=== PATIENT | female | born 1965 | race Caucasian/White ===

== ENCOUNTER 2025-02-21 07:41 | Outpatient (CLI) | payer OTHER, SELFPAY ==
--- NOTE | ~2025-02-21 | MMUS_ITS ---
EXAMINATION: MM diagnostic marianela BI w tiffanie, US breast RT limited HISTORY: Unspecified breast lump TECHNIQUE: 3-D tomosynthesis images of the breasts were performed and synthetic 2-D images were generated. CAD analysis was submitted and interpreted. High resolution limited right breast ultrasound was performed. COMPARISON: None BREAST PARENCHYMAL COMPOSITION: The breasts are heterogeneously dense, which may obscure small masses. FINDINGS: MAMMOGRAPHIC FINDINGS: There is an area of asymmetric density and architectural distortion at the upper, outer right breast, measuring approximately 3 cm in diameter. There are associated numerous pleomorphic microcalcifications in the area of asymmetric density/distortion. No parenchymal abnormality of the left breast seen. No suspicious left breast calcifications. ULTRASOUND: At the upper, outer right breast, there is a 3.7 x 2.3 x 2.5 cm irregular hypoechoic mass with extensive internal vascularity on color flow. This correlates with the mammographic finding. At the 10:00 position right breast, 9 cm from the nipple, there is an additional 1.8 x 1.5 x 1.5 cm hypoechoic irre gular mass with internal vascular flow. There is an additional adjacent 1.5 x 1.5 x 1.9 cm lymph node with fatty hilum but possible thickened cortex. There is an additional 2.4 x 0.7 x 1.2 cm right axillary lymph node with probable thickening of the cortex. IMPRESSION: 3.7 x 2.3 x 2.5 cm irregular hypoechoic mass at the upper, outer right breast which corresponds with a suspicious mammographic abnormality with architectural distortion and pleomorphic microcalcifications. This is highly suspicious for breast carcinoma. Ultrasound-guided tissue sampling recommended to establish histologic diagnosis. At least 3 suspicious, abnormal appearing lymph nodes at the right axillary region, suspicious for bushra metastatic disease. Again, tissue sampling is recommended. BI-RADS category 5, highly suggestive of malignancy. Reviewed, dictated and finalized at location M. IMPRESSION: 3.7 x 2.3 x 2.5 cm irregular hypoechoic mass at the upper, outer right breast which corresponds with a suspicious mammographic abnormality with architectural distortion and pleomorphic microcalcifications. This is highly suspicious for breast carcinoma. Ultrasound-guided tissue sampling recommended to establish hi stologic diagnosis. At least 3 suspicious, abnormal appearing lymph nodes at the right axillary reg ion, suspicious for bushra metastatic disease. Again, tissue sampling is recomme nded. BI-RADS category 5, highly suggestive of malignancy.
--- OUTSIDE RECORDS SUMMARY | 2025-02-21 07:46 | XMS_ITS | Clinical Summary ---
Author Organization [facility] Address [address] [place] [address] Care Team Providers Care Conveyor Belt Installer Name Role Phone Mallory Moon DO Primary Care Provider Allergies Active Allergy Reactions Criticality Noted Date Comments Cefprozil Hives High 11/15/2022 Clarithromycin Hives High 11/15/2022 Influenza Virus Vaccine Tv S plit 2012- (18 Yr+) Hives High 12/29/2022 Metronidazole Abdominal Pain Low 11/15/2022 Shellfish Containing Products Hives High 2022 Sulfa (Sulfonamide Antibiotics) Hives High 10/31 Medications cetirizine (ZyrTEC) 5 mg tablet 5 mg. 03/22/20 21 Active tiZANidine (ZANAFLEX) 2 mg Tablet 1-2 tabs as needed Orally once a day at bedtime for 30 06/22/20 22 Active fluticasone propionate 50 mcg/actuation nasal spray,suspensi on 1 spray(s), Nasal, daily, [place], 0 03/22/20 21 Active cannabidiol, CBD, (CANNABIDIOL ORAL) mg, 0, CBD/THC edible gummy 03/22/20 21 Active famotidine (PEPCID) 20 mg tablet Take 20 mg by mouth 2 times daily. Active sodium sulfate-potass ium chloride-magne sium sulfate (Sutab) 1.479-0.188- 0.225 gram Tablet Take 12 Tablets by mouth one time for 1 dose. Follow prescribing physician's instructions ONLY. These were sent by mail or email. 24 Tablet 01/09/20 24 Active atorvastatin (LIPITOR) 10 mg tablet Take 1 Tablet by mouth daily. 12/19/19 25 Active ondansetron (ZOFRAN ODT) 4 mg Tablet, Rapid Dissolve Take 1 Tablet (4 mg) by mouth every 6 hours as needed for Nausea/Emesis. Dissolve tablet on top of tongue, then swallow with saliva. 6 Tablet 02/12/20 25 Active colestipoL (COLESTID) 1 gram tablet Take 1 Tablet (1,000 mg) by mouth daily. 90 Tablet 3 02/12/20 25 Active ondansetron (Zofran) 4 mg Tablet Take 1 Tablet (4 mg) by mouth every 8 hours as needed for Nausea/Emesis. 30 Tablet 08/08/19 24 025 Discontinued colestipoL (COLESTID) 1 gram tablet TAKE 1 TABLET BY MOUTH DAILY 30 Tablet 01/21/20 25 025 Discontinued Active Problems Problem Noted Date Diagnosed Date History of colon polyps 08/08/2023 Gastroesophageal reflux dise ase with esophagitis without hemorrhage 05/30/2023 Irritable bowel syndrome with diarrhea 3 Resolved Problems Problem Noted Date Diagnosed Date Resolved Date Chronic diarrhea 11/15/2022 05/30/2023 RUQ abdominal pain 11/15/2022 3 Encounters Date Type Department Care Team Description 02/11/2025 9:00 AM CDT Office Visit [facility] [place] [address] [facility] [address] [place] [address] Amy York MD Irritable bowel syndrome with diarrhea (Primary Dx); Gastroesophageal reflux disease with esophagitis without hemorrhage; History of colon polyps 02/04/2025 External Device Data STL ABSTRACTION Provider, Abstract 01/19/2025 Refill [facility] [place] [address] [facility] [place] [address] [place] [address] Amy York MD 12/24/2024 External Device Data STL ABSTRACTION Provider, Abstract 11/26/2024 External Device Data STL ABSTRACTION Provider, Abstract from Last 3 Months Family History Medical History Relation Name Comments Prostate Cancer Maternal Grandfather Hypertension Mother Colon Cancer Neg Hx Relation Name Status Comments Maternal Grandfather Mother Social History Tobacco Use Types Packs/Day Years Used Date Smoking Tobacco: Some Days Cigarettes Last attempted to quit: 12/27/2022 Tobacco Cessation:Ready to Q uit: Not Asked; Counseling Given: Not Answered Alcohol Use Standard Drinks/Week Comments Yes 0 (1 standard drink = 0.6 oz pur e alcohol) occ Feeling Safe Answer Date Recorded Are you in a relationship wi th someone who hurts you emotionally and/or physically? No 02/01/2024 Comments No Sex and Gender Information Value Date Recorded Sex Assigned at Not on file Legal Sex Female 6:03 AM RN BARIATRIC Gender Identity Not on file Sexual Orientation Not on file Last Filed Vital Signs Vital Sign Reading Time Taken Comments Blood Pressure 120/80 02/11/2025 8:45 AM CDT Pulse 80 02/11/2025 8:45 AM CDT Temperature 36.1 C (97 F) 02/01/2024 10:24 AM CDT Respiratory Rate 18 02/01/2024 10:44 AM CDT Oxygen Saturation 100% 02/01/2024 10:44 AM CDT Inhaled Oxygen Concentration - - Weight 65.8 kg (145 lb) 02/11/2025 8:45 AM CDT Height 162.6 cm (5' 4) 02/11/2025 8:45 AM CDT Body Mass Index 24.89 02/11/2025 8:45 AM CDT Plan of Treatment Upcoming Encounters Date Type Department Care Team (Late st Contact Info) Description 06/24/2025 11:20 AM RN BARIATRIC Office Visit [facility]3] Internal Medicine - [address] [address] Leoncio Cherry MD [address] [place] [address] 02/17/2026 8:20 AM CDT Office Visit [facility] Gastroenterology [facility] [address] [address] Amy York MD [address] [address] Health Maintenance Due Date Last Done Comments DTAP/TDAP/TD VACCINES (1 - Tdap) 01/27/1984 HPV/Cotest (21-29) 1986 CERVICAL CANCER SCREENING 1995 HPV/Cotest (30-65) 1995 PAP SMEAR 1995 FIT-DNA Q 3 years 2010 FIT/FOBT Q 1 year 2010 Flex Sig/CT Colonography Q 5 years 2010 ZOSTER VACCINE (1 of 2) 2015 BREAST CANCER SCREENING 03/02/2016 03/02/2015, 02/09 COVID-19 Vaccine ( season) 2024 01/28/2022, 04/29/2021, 10/26/2020 RSV VACCINE (60+ or ) (1 - Risk 60-74 years 1-dose series) 2025 INFLUENZA VACCINE (#1) 2025 COLORECTAL SCREENING 01/31/2027 02/01/2024, 02/01/2024, 01/19/2023, Additional history exists Colorectal Cancer Screening 01/31/2027 HEPATITIS B VACCINES Aged Out No long er eligible based on patient's age to complete this topic Procedures Procedure Name Priority Date/Time Associated Diagnosis Comments COLONOSCOPY REPORT 02/01/2024 10 :27 AM CDT from Last 3 Months or Most Recently Relevant to Health Maintenance Results * COLONOSCOPY REPORT (02/01/2024 10:27 AM CDT) Narrative Procedure Note Amy York MD - 02/01/2024 10:27 AM CDT [facility] Endoscopy Patient Name: Patsy Rush Procedure Date: 02/01/2024 Date of : 1965 Attending MD: Amy York MD, Procedure: Colonoscopy Indications: Surveillance: History of numerous (> 10) adenomas on last colonoscopy (< 3 yrs), Surveillance: Personal history of piecemeal removal of large sessile adenoma on last colonoscopy (less than 1 year ago) Providers: Amy York MD Referring MD: Mallory Moon DO Medicines: Monitored Anesthesia Care Complications: No immediate complications. Procedure: Informed consent was obtained for the procedure, including moderate sedation after risks were discussed. Based on the pre-procedure assessment, including review of the patient's medical history, medications, allergies, and review of systems, the patient was deemed to be an appropriate candidate for sedation. A timeout was performed. Continuous ECG monitoring, pulse oximetry, blood pressure monitoring, and direct observation were performed. The Colonoscope was introduced through the anus and advanced to the cecum, identified by appendiceal orifice and ileocecal valve. The colonoscopy was performed without difficulty. The patient tolerated the procedure well. The quality of the bowel preparation was good. The quality of the bowel preparation was evaluated using the BBPS ([place] Bowel Preparation Scale) with scores of: Right Colon = 2, Transverse Colon = 3 and Left Colon = 3. The total BBPS score equals 8. The ileocecal valve, appendiceal orifice, and rectum were photographed. Estimated Blood Loss: Estimated blood loss: none. Findings: The perianal and digital rectal examinations were normal. Four sessile polyps were found in the ascending colon. The polyps were 3 to 5 mm in size. These polyps were removed with a cold snare. Resection and retrieval were complete. A small post polypectomy scar was found in the ascending colon. The scar tissue was healthy in appearance. A 4 mm polyp was found in the descending colon. The polyp was sessile. The polyp was removed with a cold snare. Resection and retrieval were complete. Two sessile polyps were found in the rectum. The polyps were 1 to 2 mm in size. These polyps were removed with a cold biopsy forceps. Resection and retrieval were complete. Multiple small-mouthed diverticula were found in the sigmoid colon and descending colon. External hemorrhoids were found during retroflexion. The hemorrhoids were small. Impression: - Four 3 to 5 mm polyps in the ascending colon, removed with a cold snare. Resected and retrieved. - Post-polypectomy scar in the ascending colon. - One 4 mm polyp in the descending colon, removed with a cold snare. Resected and retrieved. - Two 1 to 2 mm polyps in the rectum, removed with a cold biopsy forceps. Resected and retrieved. - Diverticulosis in the sigmoid colon and in the descending colon. - External hemorrhoids. Recommendation: - Await pathology results. - Repeat colonoscopy in 2-3 years for surveillance based on pathology results. - Sutab and zofran ok Amy York MD 02/01/2024 10:27:04 AM This report has been signed electronically. Number of Addenda: [address]; [place] [address] Amy York MD GI PROCEDURE ORDERABLES Final Re sult from Last 3 Months or Most Recently Relevant to Health Maintenance Insurance [place] [address] [employer] CHOICE POS II Advance Directives For more information, please contact: [phone] * Full Code (Latest Code Status on File) Date Activated Date Inactivated Comments 02/01/2024 9:07 AM 02/01/2024 1:04 PM * Full Code Date Activated Date Inactivated Comments 01/19/2023 10:54 AM 01/19/2023 3:33 PM Care Teams Conveyor Belt Installer Relationship Specialty [place] [address] [place] [address] PCP - General Family Practice 11/15/22
--- OUTSIDE RECORDS SUMMARY | 2025-02-21 07:46 | XMS_ITS | Patient Health Record ---
Author Organization [facility] Address [address] [place] [address] Care Team Providers Care Fine Arts Model Name Role Phone Ysabel Jeffrey Primary Care Provider Allergies Allergen (clinical drug ingredient) Drug/Non Drug Allergy documented on EMR Reaction Allergy Type Onset Date Status biaxin (uncoded) Unknown Allergy Act sergio cefzil (uncoded) Unknown Allergy Act sergio Vaccine product containing Influenza virus antigen (medicinal product) flu shot (uncoded) hives Allergy Ac tive gabapentin gabapentin (uncoded) facial flusing Allergy Active Substance with sulfonamide structure and antibacterial mechanism of action (substance) sulfa (uncoded) Unknown Allergy Active Reason For Referral No Information Medications Medication SIG (Take, Route, Frequency, Duration) Notes Start Date End Date Status predniSONE 20 MG 2 tablet for 4 days, 1 tab for 4 days, 1/2 tab for 4 days, then stop Orally Once a day; Duration: 12 days 08/20/2020 Active Albuterol Sulfate HFA 108 (90 Base) mcg/act 2 puffs as needed Inhalation every 4 hrs; Duration: 30 days 07/28/2020 Active Xyzal 5 MG 1 tablet in the evening Orally Once a day Unknown Singulair 10 MG 1 tablet in the evening Orally Once a day Unknown DULoxetine HCl 20 MG 1 capsule Orally Once a day; Duration: 30 day(s) 04/11/2019 Unknown Cholestyramine 4 GM 1 packet mixed with water or non-carbonated drink Orally Twice a day; Duration: 30 day(s) 08/13/2019 Unknown Propranolol HCl 20 MG 1 tablet as needed Orally Twice a day; Duration: 30 day(s) 08/14/2019 Unknown predniSONE 20 MG 2 tablet for 4 days, 1 tab for 4 days, 1/2 tab for 4 days, then stop Orally Once a day; Duration: 12 days 05/21/2020 Unknown tiZANidine HCl 2 MG 1-2 tabs as needed Orally once a day at bedtime; Duration: 30 Active Amoxicillin 500 MG 1 capsule Orally every 12 hrs; Duration: 10 day(s) 08/20/2020 Active EpiPen 2-Christopher 0.3 MG/0.3ML as directed Injection once; Duration: 90 days for anaphylaxis 07/28/2020 Active Immunizations Vaccine Route Administration Date Status Comme nts Flulaval Unknown 03/11/2019 Refused Social History Tobacco Use: Social History Observation Description Date Details (start date - stop date) Former Smoker NA - NA Sex Assigned At : Social History Observation Description Sex Assigned At Female Tobacco Use/Smoking Question Answer Notes Smoking Status: former smoker Problems Problem Type SNOMED Code ICD Code Onset Dates Problem Status W/U Status Risk Notes Problem Chronic tonsillitis (70434337) Chronic tonsillitis (J35.01) Active confirmed Problem Benign essential hypertension (5257976) Benign essential hypertension (I10) Active confirmed Problem Skin sensation disturbance (17443519) Numbness and tingling of right leg (R20.2) Active confirmed Problem Vitamin D deficiency (44029103) Vitamin D deficiency (E55.9) Active confirmed Problem Sciatica (65049606) Back pain of lumbar region with sciatica (M54.40) Active confirmed Problem Drug allergy (113546746) Drug allergy (Z88.9) Active confirmed Problem Flatulence (464210796) Flatulence (R14.3) 0 confirmed [place] Problem Malaise (887200202) Other malaise (R53.81) 0 confirmed [place] Problem General examination of patient (358103644) Routine medical exam (Z00.00) 0 confirmed [place] Problem Allergic rhinitis (01579955) Allergic rhinitis (J30.9) 0 confirmed [place] Problem Migraine (25778089) Migraine (G43.909) 0 confirmed [place] Problem Hearing loss (16892217) Hearing loss (H91.90) 0 confirmed [place] Problem Gynecological examination normal (120472353772158) Routine gynecological examination (Z01.419) 0 confirmed [place] Problem Urinary frequency (297816751) Urinary frequency (R35.0) 0 confirmed [place] Problem Other specified disorder of intestines (K63.89) 0 confirmed [place] Problem Female genital organ symptoms (872592603) Other specified symptom associated with female genital organs (N94.89) 0 confirmed Ochoa Plan Of Treatment No Information Insurance Providers Payer Name Payer Address Payer Phone Subscriber Number Group Number Insured Name Patient Relationship to Insured Coverage Start Date Coverage End Date [employer] [address] [place] [address] [id number] Patsy Rush Self - patient is the insured Medical (General) History Medical History History ICD Code Chronic diarrhea SIBO Benign lump right breast Arthroscopic surgery left knee
== END 2025-02-21 07:42 | disposition home or self-care (01) ==
LOC: ANHFOHIMG 07:44
DX: N63.0 Unspecified lump in unspecified breast (principal); R92.8 Other abnormal and inconclusive findings on diagnostic imaging of breast
CPT/HCPCS: 76642; 77062; 77066; G0279

== ENCOUNTER 2025-02-22 10:14 | Emergency (ER) | payer OTHER, SELFPAY ==
--- NOTE | ~2025-02-22 | XR_ITS ---
XR shoulder LT min 2V 02/22/2025 10:43 Indication: Left shoulder pain Procedure: 4 views left shoulder Comparison: No prior studies for comparison. Findings: No fracture, subluxation or dislocation. No soft tissue abnormality. No foreign bodies. Impression: 1: No acute bone or joint abnormality. Reviewed, dictated and finalized at location O. Impression: 1: No acute bone or joint abnormality.
[2025-02-22 10:29] VITALS: BP 154/70; PULSE 81; RESP 16; TEMP 36.5; O2SAT 100
--- NOTE | 2025-02-22 12:12 | ED.GENADULT ---
HPI - General Adult General Chief complaint: Extremity Injury, Upper Stated complaint: L SHOULDER PAIN Source: patient Mode of arrival: ambulatory Limitations: no limitations History of Present Illness HPI narrative: Patient presents for evaluation of left shoulder pain. Symptom onset in the last week. 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 She felt a pop in the affected area. Yesterday she was reaching out in front of her and heard another pop in the left shoulder. She has a history of bone spurs and bursitis in the left shoulder. 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 She reports decreased range of motion in the affected joint. Pain is 9/10 in severity. She took tizanidine for symptoms. She is right-hand dominant. Related Data Home Medications ?Medication ?Instructions ?Recorded ?Confirmed ?Last Taken ?Type Flonase 02/22/25 Unknown History cetirizine 02/22/25 Unknown History colestipol 1 gram tablet g PO 02/22/25 Unknown History famotidine 20 mg tablet (Acid 20 mg PO BID 02/22/25 02/22/25 Unknown History Controller) simvastatin 10 mg tablet mg 02/22/25 Unknown History tizanidine 2 mg tablet mg 02/22/25 Unknown History Allergies Allergy/AdvReac Type Severity Reaction Status Date / Time shellfish derived Allergy Severe Unknown Verified 02/22/25 10:43 clarithromycin (From Biaxin) Allergy Unknown Unknown Verified 02/22/25 10:43 metronidazole Allergy Unknown Unknown Verified 02/22/25 10:43 Sulfa (Sulfonamide Allergy Unknown Unknown Verified 02/22/25 10:43 Antibiotics) cefazolin AdvReac Unknown Unknown Verified 02/22/25 10:43 Review of Systems Review of Systems: CONSTITUTIONAL: Denies fever, chills, or sweats. EYES: Denies visual changes, redness, or discharge. ENT: Denies rhinorrhea, congestion, sore throat, or otalgia. CARDIOVASCULAR: Denies chest pain, palpitations, or edema. RESPIRATORY: Denies cough or dyspnea. GASTROINTESTINAL: Denies abdominal pain, nausea, vomiting, or diarrhea. GENITOURINARY: Denies dysuria or hematuria. SKIN: Denies rash or itching. MUSCULOSKELETAL: Reports left shoulder pain. NEUROLOGIC: Denies headache, numbness, dizziness, or weakness. PSYCHIATRIC: Denies anxiety or depression. 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 HEAD: Normocephalic, atraumatic. EYES: PERRLA and EOMI. ENT: Nares clear, no rhinorrhea or epistaxis. Mucous membranes moist. Oropharynx without tonsillar hypertrophy exudate or other lesions. Bilateral TMs pearly kimbrough nonbulging NECK: Supple. No adenopathy or masses. No carotid bruits or JVD CHEST: Clear to auscultation. No respiratory distress. No wheezes rales or rhonchi HEART: Regular rate and rhythm. No murmur heard. Normal peripheral pulses. ABDOMEN: Soft, nontender, nondistended, normal active bowel sounds. EXTREMITIES: decreased active range of motion of the left shoulder but full passive range of motion of the left shoulder. There is tenderness in left shoulder without crepitus or deformity. SKIN: Warm, dry, no rash. NEURO: No focal deficits. Alert and oriented x3. PSYCH: Normal mood and affect. Course Course Emergency Course: This is a 60-year-old female who presented for evaluation of left shoulder pain. X-ray negative for fracture. Exam consistent with strain. Will discharge with Medrol Dosepak as she cannot take NSAIDs. Provided with sling. Advise she follow up with Orthopedics. Advised on RICE therapy. Go to the ER for worsening symptoms. Pt in agreement with plan of care. Level of Care: Express Care Visit Vital Signs Vital signs: Vital Signs Temperature 36.5 C 02/22/25 10:29 Pulse Rate 81 02/22/25 10:29 Respiratory Rate 16 02/22/25 10:29 Blood Pressure 154/70 H 02/22/25 10:29 Pulse Oximetry 100 02/22/25 10:29 Temperature 36.5 C 02/22/25 10:29 Pulse Rate 81 02/22/25 10:29 Respiratory Rate 16 02/22/25 10:29 Blood Pressure 154/70 H 02/22/25 10:29 Pulse Oximetry 100 02/22/25 10:29 Medical Decision Making Vital Signs Vital Signs: Vital Signs Temperature 36.5 C 02/22/25 10:29 Pulse Rate 81 02/22/25 10:29 Respiratory Rate 16 02/22/25 10:29 Blood Pressure 154/70 H 02/22/25 10:29 Pulse Oximetry 100 02/22/25 10:29 Temperature 36.5 C 02/22/25 10:29 Pulse Rate 81 02/22/25 10:29 Respiratory Rate 16 02/22/25 10:29 Blood Pressure 154/70 H 02/22/25 10:29 Pulse Oximetry 100 02/22/25 10:29 Imaging Data Radiologist's impression: GENERAL: Well-appearing, well-nourished, and in no acute distress. HEAD: Normocephalic, atraumatic. EYES: PERRLA and EOMI. ENT: Nares clear, no rhinorrhea or epistaxis. Mucous membranes moist. Oropharynx without tonsillar hypertrophy exudate or other lesions. Bilateral TMs pearly kimbrough nonbulging NECK: Supple. No adenopathy or masses. No carotid bruits or JVD CHEST: Clear to auscultation. No respiratory distress. No wheezes rales or rhonchi HEART: Regular rate and rhythm. No murmur heard. Normal peripheral pulses. ABDOMEN: Soft, nontender, nondistended, normal active bowel sounds. EXTREMITIES: Normal range of motion. No edema. SKIN: Warm, dry, no rash. NEURO: No focal deficits. Alert and oriented x3. PSYCH: Normal mood and affect. Discharge Plan Discharge Clinical Impression: Left shoulder strain Instructions: Antibiotic Form, Muscle Strain (DC) Patient Language: Turkish Prescriptions: New methylprednisolone [Medrol (Christopher)] 4 mg tablets,dose pack See Rx Instructions .ROUTE .COMPLEX Qty: 21 0RF Rx Instructions: for 6 days No Action tizanidine 2 mg tablet simvastatin 10 mg tablet colestipol 1 gram tablet PO cetirizine Flonase famotidine [Acid Controller] 20 mg tablet 20 mg PO BID Follow-up/Referrals: Sarai,Mallory [Other] Randall Christy MD [Physician, Orthopedics] Stand Alone Forms: Work/School Release IP Time of Disposition: 11:12
== END 2025-02-22 11:20 | disposition home or self-care (01) ==
PROVIDERS: Emergency Provider Nurse Practitioner
DX: S46.912A Strain of unspecified muscle, fascia and tendon at shoulder and upper arm level, left arm, initial encounter (principal); W50.0XXA Accidental hit or strike by another person, initial encounter; Y99.8 Other external cause status
CPT/HCPCS: 73030; 99203; A4565; G0463

== ENCOUNTER 2025-02-27 08:03 | Outpatient (CLI) | payer OTHER, SELFPAY ==
--- NOTE | ~2025-02-27 | MR_ITS ---
EXAMINATION: MR shoulder LT wo con DATE: 02/27/2025 08:57 INDICATION: Left shoulder pain TECHNIQUE: Magnetic resonance imaging (MRI) of the left shoulder was performed without intravenous contrast. Sequences included axial PD-weighted FS FSE, coronal oblique PD-weighted FS FSE, coronal oblique T2-weighted FS FSE, sagittal PD-weighted FS FSE, and sagittal T1-weighted SE. COMPARISON: None. FINDINGS: Coracoacromial arch: The acromion undersurface is flat in morphology (type I). The coracoacromial ligament is normal. Mild acromioclavicular osteoarthritis. Rotator cuff: The supraspinatus, infraspinatus and teres minor tendons are normal. The subscapularis tendon is normal. Normal rotator cuff muscle bulk and signal. Biceps tendon, glenoid labrum and glenohumeral cartilage: Long head of the biceps tendon is normal. Glenoid labrum is normal. Glenohumeral cartilage is normal. Fluid: Physiologic amount of fluid in the glenohumeral joint and biceps tendon sheath. No loose osteochondral bodies. Small amount of fluid in the subacromial/subdeltoid bursa consistent with mild bursitis. Bones: There is a T2 hyperintense, T1 isointense lytic lesion at the junction of the spine of the scapula and 20 the acromion which measures 2.4 x 1.9 x 1.4 cm lesion fills the medullary space with peripheral endosteal scalloping. There is full-thickness erosion through the anterior cortex with portion of the mass extending uptake to 6 mm into the fat anterior to bone. There is a second smaller lesion measuring approximately 8mm in maximal diameter along the proximal left humeral diaphysis associated partial-thickness endosteal scalloping. Normal marrow signal is otherwise normal. IMPRESSION: 1. 2.4 x 1.9 x 1.4 cm expansile lytic lesion in the scapula at the junction of the scapular spine and face of the acromion with full-thickness erosion 3 cortex and extraosseous extension which along with a second smaller lesion along the proximal humeral diaphysis is consistent with metastatic disease. Consider bone scan to further assess extent of disease. Per review of reports from prior right breast imaging on 02/21/2025, there is a lesion highly suspicious for malignancy which may represent the primary malignancy. Consider biopsy of the breast lesion and additional CT of the chest and abdomen to assess for additional metastatic disease. Reviewed, dictated and finalized at location A. IMPRESSION: 1. 2.4 x 1.9 x 1.4 cm expansile lytic lesion in the scapula at the junction of the scapular spine and face of the acromion with full-thickness erosion 3 georgette x and extraosseous extension which along with a second smaller lesion along the proximal humeral diaphysis is consistent with metastatic disease. Consider bon e scan to further assess extent of disease. Per review of reports from prior [facility] breast imaging on 02/21/2025, there is a lesion highly suspicious for malign gemma which may represent the primary malignancy. Consider biopsy of the breast lesion and additional CT of the chest and abdomen to assess for additional meta static disease.
== END 2025-02-27 08:04 | disposition home or self-care (01) ==
DX: M25.612 Stiffness of left shoulder, not elsewhere classified (principal); M25.512 Pain in left shoulder
CPT/HCPCS: 73221

== ENCOUNTER 2025-03-10 08:04 | Outpatient (CLI) | payer OTHER, SELFPAY ==
--- OUTSIDE RECORDS SUMMARY | 2025-03-10 08:25 | XMS_ITS | Clinical Summary ---
Author Organization [facility] Address [address] [place] [address] Care Team Providers Care Screener Perfumer Name Role Phone Mallory Moon DO Primary Care Provider Allergies Active Allergy Reactions Criticality Noted Date Comments Cefazolin Nausea and Vomiting Low 11/26/2021 Reaction was either vomiting or hive Cefprozil Hives High 11/15/2022 Clarithromycin Hives High 11/15/2022 Influenza Virus Vaccine Tv Split 2013-14 (18 Yr+) Hives High 12/29/2022 Metronidazole Abdominal Pain Low 11/15/2022 Shellfish Containing Products Hives High 11/15/2022 Sulfa (Sulfonamide Antibiotics) Hives High 11/15/2022 Medications cetirizine (ZyrTEC) 5 mg tablet 5 mg. 1 Active tiZANidine (ZANAFLEX) 2 mg Tablet 1-2 tabs as needed Orally once a day at bedtime for 30 2 Active cannabidiol, CBD, (CANNABIDIOL ORAL) mg, 0, CBD/THC edible gummy 1 Active colestipoL (COLESTID) 1 gram tablet Take 1 Tablet (1,000 mg) by mouth daily. 90 Tablet 3 5 Active simvastatin (ZOCOR) 10 mg tablet Take 10 mg by mouth daily. 5 Active ondansetron (Zofran) 4 mg Tablet Take 1 Tablet (4 mg) by mouth every 8 hours as needed for Nausea/Emes is. 30 Tablet 4 02/12/20 25 Discontinued colestipoL (COLESTID) 1 gram tablet TAKE 1 TABLET BY MOUTH DAILY 30 Tablet 5 02/12/20 25 Discontinued Active Problems Problem Noted Date Diagnosed Date Carcinoma of right breast metastatic to bone 10/2024 History of colon polyps 08/08/2023 Gastroesophageal reflux dise ase with esophagitis without hemorrhage 05/30/2023 Irritable bowel syndrome with diarrhea 3 Resolved Problems Problem Noted Date Diagnosed Date Resolved Date Chronic diarrhea 11/15/2022 05/30/2023 RUQ abdominal pain 11/15/2022 3 Encounters Date Type Department Care Team Description 03/06/2025 12:30 PM CDT Office Visit [facility] Oncology and Hematology - [address] [facility] [address] [place] [address] Juli Jean MD Carcinoma of right breast metastatic to bone (CMS/HCC) (Primary Dx) 02/11/2025 9:00 AM CDT Office Visit [facility] Gastroenterology [facility] [address] [facility] [address] [place] [address] Amy York MD Irritable bowel syndrome with diarrhea (Primary Dx); Gastroesophageal reflux disease with esophagitis without hemorrhage; History of colon polyps 02/04/2025 External Device Data STL ABSTRACTION Provider, Abstract 01/19/2025 Refill [facility] Gastroenterology [facility] [address] [facility] [address] [place] [address] Amy York MD 12/24/2024 External Device Data STL ABSTRACTION Provider, Abstract from Last 3 Months Family History Medical History Relation Name Comments Diabetes Brother Heart Disease Father Breast Cancer Maternal Aunt bladder cancer Maternal Grandfather Heart Disease Mother Hypertension Mother Relation Name Status Comments Brother Alive Father Alive Maternal Aunt Maternal Grandfather Mother Alive Social History Tobacco Use Types Packs/Day Years Used Date Smoking Tobacco: Former Cigarettes Q uit: 12/27/2022 Smokeless Tobacco: Never Tobacco Cessation:Counseling Given: Not Answered Alcohol Use Standard Drinks/Week Comments Yes 0 (1 standard drink = 0.6 oz pur e alcohol) socially Feeling Safe Answer Date Recorded Are you in a relationship wi th someone who hurts you emotionally and/or physically? 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 Gender Identity Not on file Sexual Orientation Not on file Last Filed Vital Signs Vital Sign Reading Time Taken Comments Blood Pressure 155/77 03/06/2025 12:13 PM CDT Pulse 72 03/06/2025 12:10 PM CDT Temperature 36.6 C (97.9 F) 03/06/2025 12:10 PM CDT Respiratory Rate 15 03/06/2025 12:10 PM CDT Oxygen Saturation 96% 03/06/2025 12:10 PM CDT Inhaled Oxygen Concentration - - Weight 65.5 kg (144 lb 6.4 oz) 03/06/2025 12:10 PM CDT Height 162.6 cm (5' 4) 03/06/2025 12:10 PM CDT Body Mass Index 24.79 03/06/2025 12:10 PM CDT Plan of Treatment Upcoming Encounters Date Type Department Care Team (Late st Contact Info) Description 03/27/2025 1:00 PM CDT Office Visit [facility] Oncology and Hematology [facility] [address] [facility] [address] [place] [address] Jovani Weeks MD [address] [facility] [address] [place] [address] 06/24/2025 11:20 AM PLASTIC FRAME INSERTER Office Visit [facility] Internal Medicine - [facility] [address] [place] [address] Leoncio Cherry MD [address] [place] [address] 02/17/2026 8:20 AM CDT Office Visit [facility] Gastroenterology [facility] [address] [facility] [address] [place] [address] Amy York MD [address] [address] Health Maintenance Due Date Last Done Comments DTAP/TDAP/TD VACCINES (1 - Tdap) 01/27/1984 ZOSTER VACCINE (1 of 2) 01/27/1984 HPV/Cotest (21-29) 1986 CERVICAL CANCER SCREENING 1995 HPV/Cotest (30-65) 1995 PAP SMEAR 1995 FIT-DNA Q 3 years 2010 FIT/FOBT Q 1 year 2010 Flex Sig/CT Colonography Q 5 years 2010 BREAST CANCER SCREENING 03/02/2016 03/02/2015, 02/09 RSV VACCINE (60+ or ) (1 - Risk 60-74 years 1-dose series) 2025 INFLUENZA VACCINE (#1) 2025 COVID-19 Vaccine ( - season) 2025 01/28/2022, 04/29/2021, 10/26/2020 COLORECTAL SCREENING 01/31/2027 02/01/2024, 02/01/2024, 01/19/2023, Additional [...] York MD - 02/01/2024 10:27 AM CDT [facility] Patient Name: Patsy Rush Procedure Date: [...] bowel preparation was evaluated using the BBPS ([place] Bowel Preparation Scale) with scores of: Right [...] of Addenda: [address]; [place] [address] Amy York MD GI PROCEDURE ORDERABLES Final Re sult from Last 3 Months or Most Recently Relevant to Health [place] [address] [place] [address] A[employer] CHOICE POS II Advance Directives For more information, please contact: [phone] * Full Code (Latest Code Status on File) Date Activated Date Inactivated Comments 02/01/2024 9:07 AM 02/01/2024 1:04 PM * Full Code Date Activated Date Inactivated Comments 01/19/2023 10:54 AM 01/19/2023 3:33 PM Care Teams Screener Perfumer Relationship Specialty [place] [address] [place] [address] PCP - General Family Practice 11/15/22
--- OUTSIDE RECORDS SUMMARY | 2025-03-10 08:25 | XMS_ITS | Patient Health Record ---
Author Organization [facility] Address [address] [place] [address] Care Team Providers Care Garnett Mechanic Name Role Phone Ysabel Jeffrey Primary Care Provider [phone] Allergies Allergen (clinical drug ingredient) Drug/Non Drug [...] W/U Status Risk Notes Problem Chronic tonsillitis (28125753) Chronic tonsillitis (J35.01) Active confirmed Problem Benign essential hypertension (8005596) Benign essential hypertension (I10) Active confirmed Problem Skin sensation disturbance (02338734) Numbness and tingling of right leg (R20.2) Active confirmed Problem Vitamin D deficiency (09783309) Vitamin D deficiency (E55.9) Active confirmed Problem Sciatica (16452649) Back pain of lumbar region with sciatica (M54.40) Active confirmed Problem Drug allergy (732208281) Drug allergy (Z88.9) Active confirmed Problem Flatulence (477000628) Flatulence (R14.3) 0 confirmed [place] Problem Malaise (651953000) Other malaise (R53.81) 0 confirmed [place] Problem General examination of patient (203677344) Routine medical exam (Z00.00) 0 confirmed [place] Problem Allergic rhinitis (64516802) Allergic rhinitis (J30.9) 0 confirmed [place] Problem Migraine (95898552) Migraine (G43.909) 0 confirmed [place] Problem Hearing loss (34495848) Hearing loss (H91.90) 0 confirmed [place] Problem Gynecological examination normal (352108899558554) Routine gynecological examination (Z01.419) 0 confirmed [place] Problem Urinary frequency (878598967) Urinary frequency (R35.0) 0 confirmed [place] Problem Other specified disorder of intestines (K63.89) 0 confirmed [place] Problem Female genital organ symptoms (647807516) Other specified symptom associated with female genital organs (N94.89) 0 confirmed [place]choa Plan Of Treatment No Information Insurance Providers Payer Name Payer Address Payer Phone Subscriber Number Group Number Insured Name Patient Relationship to Insured Coverage Start Date Coverage End Date A[employer] [address] [place] [address] [id number] Patsy Rush Self - patient is the insured Medical (General) History Medical History History ICD Code Chronic diarrhea SIBO Benign lump right breast Arthroscopic surgery left knee
[2025-03-10 08:54] LABS: Hematocrit 36.3 % (37.0-47.0); Hemoglobin 12.1 g/dL (12.0-15.0); Immature Granulocyte Percent A 0.6 % (0-0.5); Lymphocytes Absolute Auto 0.96 K/mm3 (0.9-3.2); Mean Corpuscular HGB Conc 33.3 g/dl (32-36); Mean Corpuscular Hemoglobin 32.6 pg (26-34); Mean Corpuscular Volume 97.8 fl (80-100); Nucleated Red Blood Cells Absolute Auto 0.000 K/mm3 (0.0-0.012); Nucleated Red Blood Cells Perc 0.0 % (0.0-0.2); Platelet Count Result 259 k/mm3 (150-375); Red Blood Count 3.71 M/mm3 (4.2-5.4); White Blood Count 5.1 K/mm3 (4.5-10.0)
[2025-03-10 09:45] LABS: Alanine Aminotransferase 22 U/L (6-35); Albumin Level 4.1 g/dL (3.5-5.1); Alkaline Phosphatase 95 U/L (38-126); Anion Gap 9 mmol/L (4-12); Aspartate Amino Transferase 36 U/L (14-36); Bilirubin,Total 1.2 mg/dL (0.2-1.3); Blood Urea Nitrogen 15 mg/dL (7-17); Calcium 9.7 mg/dL (8.4-10.2); Carbon Dioxide 24 mmol/L (22-30); Chloride 105 mmol/L (98-107); Estimated Glomerular Filt Rate > 60; Glucose 106 mg/dL (65-110); Potassium 3.6 mmol/L (3.4-5.0); Sodium 138 mmol/L (137-145); Total Protein 7.0 g/dL (6.3-8.2)
== END 2025-03-10 08:05 | disposition home or self-care (01) ==
PROVIDERS: Visit Provider Internal Medicine
DX: C50.911 Malignant neoplasm of unspecified site of right female breast (principal); C79.51 Secondary malignant neoplasm of bone
CPT/HCPCS: 36415; 80053; 85025; 86300

== ENCOUNTER 2025-03-14 07:05 | Outpatient (CLI) | payer OTHER, SELFPAY ==
--- NOTE | ~2025-03-14 | MMUS_ITS ---
PROCEDURE: US breast biopsy RT w image, MM post biopsy diagnostic RT, US breast bx add lesion RT CLINICAL HISTORY: 60-year-old female with suspicious right breast mass in the upper outer quadrant and abnormal right axillary lymph node who presents for ultrasound-guided core needle biopsy procedure. COMPARISON: 02/21/2025 Following informed consent including risks, benefits, and possible complications, the patient was brought to the ultrasound suite. A time-out procedure was performed. A preliminary ultrasound of the right breast and right axilla was performed, redemonstrating a dominant irregular shaped calcified hypo echoic mass at that spans 9:00 to 12:00, 3 cm from the nipple and multiple enlarged lymph nodes with thickened cortex in the right axilla. The patient was prepped and draped in the usual sterile fashion. 1% lidocaine was instilled into the subcutaneous tissues. 1% lidocaine without epinephrine was injected into the deep tissues around the lesion. Approximately 10cc lidocaine was administered. A small skin jacky was made. 4 core samples were obtained from the palpable lesion at 12:00 through a Lateral approach with a 13- gauge Vacuum-assisted biopsy needle. A post biopsy butterfly HydroMark marker was placed at the biopsy site. The patient was prepped and draped in the usual sterile fashion. 1% lidocaine was instilled into the subcutaneous tissues. 1% lidocaine without epinephrine was injected into the deep tissues around the lesion. Approximately 10cc lidocaine was administered. A small skin jacky was made. 3 core samples were obtained from an abnormally enlarged lymph node with thickened cortex in the right axilla through a Lateral approach with a 14-gauge biopsy needle. A post biopsy coil HydroMark marker was placed at the biopsy site. Postprocedural mammogram of the right breast in craniocaudal and mediolateral and MLO projections reveal 2 post biopsy metal markers in the right breast and right axilla. The patient tolerated the procedure well and was without immediate postprocedural complications. IMPRESSION: Successful ultrasound guided biopsy of right breast mass and right axillary adenopathy. 2 post biopsy HydroMark markers placed at the biopsy sites are in good position, which is seen on postprocedural mammogram. The patient tolerated the procedure well without immediate postprocedure complications. The patient was given postprocedural instructions and sent home in stable condition. Reviewed, dictated and finalized at location B. IMPRESSION: Successful ultrasound guided biopsy of right breast mass and right axillary adenopathy. 2 post biopsy HydroMark markers placed at the biopsy sites are in good position, which is seen on postprocedural mammogram. The patient tolerated the procedure well without immediate postprocedure compli cations. The patient was given postprocedural instructions and sent home in sta ble condition. IMPRESSION: Successful ultrasound guided biopsy of right breast mass and right axillary adenopathy. 2 post biopsy HydroMark markers placed at the biopsy sites are in good position, which is seen on postprocedural mammogram. The patient tolerated the procedure well without immediate postprocedure compli cations. The patient was given postprocedural instructions and sent home in sta ble condition.
--- OUTSIDE RECORDS SUMMARY | 2025-03-14 07:11 | XMS_ITS | Patient Health Record ---
Author Organization [facility] Address [address] [place] [address] Care Team Providers Care Road Grader Name Role Phone Ysabel Jeffrey Primary Care [...] W/U Status Risk Notes Problem Chronic tonsillitis (32037213) Chronic tonsillitis (J35.01) Active confirmed Problem Benign essential hypertension (8055234) Benign essential hypertension (I10) Active confirmed Problem Skin sensation disturbance (95264175) Numbness and tingling of right leg (R20.2) Active confirmed Problem Vitamin D deficiency (50486529) Vitamin D deficiency (E55.9) Active confirmed Problem Sciatica (70969622) Back pain of lumbar region with sciatica (M54.40) Active confirmed Problem Drug allergy (025448976) Drug allergy (Z88.9) Active confirmed Problem Flatulence (765029000) Flatulence (R14.3) 0 confirmed [place] Problem Malaise (776978292) Other malaise (R53.81) 0 confirmed [place] Problem General examination of patient (398864044) Routine medical exam (Z00.00) 0 confirmed [place] Problem Allergic rhinitis (76421149) Allergic rhinitis (J30.9) 0 confirmed [place] Problem Migraine (15330583) Migraine (G43.909) 0 confirmed [place] Problem Hearing loss (45546887) Hearing loss (H91.90) 0 confirmed [place] Problem Gynecological examination normal (881051721965226) Routine gynecological examination (Z01.419) 0 confirmed [place] Problem Urinary frequency (005744689) Urinary frequency (R35.0) 0 confirmed [place] Problem Other specified disorder of intestines (K63.89) 0 confirmed [place] Problem Female genital organ symptoms (473907818) Other specified symptom associated with female genital organs (N94.89) 0 confirmed [place]choa Plan Of Treatment No Information Insurance Providers Payer Name Payer Address Payer Phone Subscriber Number Group Number Insured Name Patient Relationship to Insured Coverage Start Date Coverage End Date Aetna [address] [place] [address] [id number] Patsy Rush Self - patient is the insured Medical (General) History Medical History History ICD Code Chronic diarrhea SIBO Benign lump right breast Arthroscopic surgery left knee
--- OUTSIDE RECORDS SUMMARY | 2025-03-14 07:11 | XMS_ITS | Clinical Summary ---
Author Organization [facility] Address [address] [place] [address] Care Team Providers Care Centrifugal Wax Molder Name Role Phone Mallory Moon DO Primary Care Provider Allergies Active Allergy Reactions Criticality Noted Date Comments Cefazolin Nausea and Vomiting Low 11/26/2021 Reaction was either vomiting or hive Cefprozil Hives High 11/15/2022 Clarithromycin Hives High 11/15/2022 Influenza Virus Vaccine Tv Split 2013- (18 Yr+) Hives High 12/29/2022 Metronidazole Abdominal Pain Low 11/15/2022 Shellfish Containing Products Hives High 11/15/2022 Sulfa (Sulfonamide Antibiotics) Hives High 11/15/2022 Medications cetirizine (ZyrTEC) 5 mg tablet 5 mg. 03/22/2021 Active tiZANidine (ZANAFLEX) 2 mg Tablet 1-2 tabs as needed Orally once a day at bedtime for 30 06/22/2022 Active cannabidiol, CBD, (CANNABIDIOL ORAL) mg, 0, CBD/THC edible gummy 03/22/2021 Active colestipoL (COLESTID) 1 gram tablet Take 1 Tablet (1,000 mg) by mouth daily. 90 Tablet 3 02/11/2025 Active simvastatin (ZOCOR) 10 mg tablet Take 10 mg by mouth daily. 02/22/2025 Active Active Problems Problem Noted Date Diagnosed Date Carcinoma of right breast metastatic to bone 10/2024 History of colon polyps 08/08/2023 Gastroesophageal reflux dise ase with esophagitis without hemorrhage 05/30/2023 Irritable bowel syndrome with diarrhea 3 Resolved Problems Problem Noted Date Diagnosed Date Resolved Date Chronic diarrhea 11/15/2022 05/30/2023 RUQ abdominal pain 11/15/2022 3 Encounters Date Type Department Care Team Description 03/12/2025 Abstract [facility] Oncology and Hematology [facility] [address] [place] [address] Jovani Weeks MD 03/12/2025 Orders Only [facility] Oncology and [facility] [address] [place] [address] Juli Jean MD Carcinoma of right breast metastatic to bone (CMS/HCC) (Primary Dx) 03/11/2025 External Device Data STL ABSTRACTION Provider, Abstract 03/11/2025 External Device Data STL ABSTRACTION Provider, Abstract 03/11/2025 External Device Data STL ABSTRACTION Provider, Abstract 03/06/2025 12:30 PM CDT Office Visit [facility] Oncology [facility] [address] [place] [address] Juli Jean MD Carcinoma of right breast metastatic to bone (CMS/HCC) (Primary Dx) 02/11/2025 9:00 AM CDT Office Visit [facility] [address] [facility] [address] [place] [address] Amy York MD Irritable bowel syndrome with diarrhea (Primary Dx); Gastroesophageal reflux disease with esophagitis without hemorrhage; History of colon polyps 02/04/2025 External Device Data STL ABSTRACTION Provider, Abstract 01/19/2025 Refill [facility] [address] [place] [address] Amy York MD 12/24/2024 External Device Data [...] on file 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 Gender Identity Not on file Sexual Orientation [...] Care Team (Late st Contact Info) Description 03/17/2025 1:45 PM CDT Hospital Encounter [facility] [address] [address] Juli Jean MD [address] [place] [address] 03/27/2025 1:00 PM CDT Office Visit [facility] Oncology and Hematology - [place] [address] [place] [address] Jovani Weeks MD [address] [facility] [address] [place] [address] 06/24/2025 11:20 AM BAKERY ASSOCIATE Office Visit [facility] Internal Medicine - [facility] [address] [place] [address] Leoncio Cherry MD [address] [place] [address] 02/17/2026 8:20 AM CDT Office Visit [facility] [address] [place] [address] Amy York MD [address] [facility] [address] [place] [address] [place] [address] Health Maintenance Due Date Last Done Comments DTAP/TDAP/TD VACCINES (1 - Tdap) 01/27/1984 ZOSTER VACCINE (1 of 2) 01/27/1984 HPV/Cotest (21-29) 1986 CERVICAL CANCER SCREENING 1995 HPV/Cotest (30-65) 1995 PAP SMEAR 1995 FIT-DNA Q 3 years 2010 FIT/FOBT Q 1 year 2010 Flex Sig/CT Colonography Q 5 years 2010 BREAST CANCER SCREENING 03/02/2016 03/02/2015, 02/09 Preventative Visit- Commercial 07/03/2024 RSV VACCINE (60+ or ) (1 - [...] York MD - 02/01/2024 10:27 AM CDT [facility] Endoscopy Patient Name: Patsy Rush Procedure Date: [...] bowel preparation was evaluated using the BBPS ([place] Bowel Preparation Scale) with scores of: Right [...] signed electronically. Number of Addenda: [address]; [place] [address] Amy York MD GI PROCEDURE ORDERABLES Final Re sult from Last 3 Months or Most Recently Relevant to Health Maintenance Insurance AET[employer] CHOICE POS II AETNA CHOICE POS II Advance Directives For more information, please contact: [phone] * Full Code (Latest Code Status on File) Date Activated Date Inactivated Comments 02/01/2024 9:07 AM 02/01/2024 1:04 PM * Full Code Date Activated Date Inactivated Comments 01/19/2023 10:54 AM 01/19/2023 3:33 PM Care Teams Centrifugal Wax Molder Relationship Specialty [place] [address] [place] [address] PCP - General Family Practice 11/15/22
--- NOTE | 2025-03-14 08:17 | S_PTH ---
PATIENT: Patsy Rush LOC: [facility] U#:[id number] AGE/SX: 60/F ROOM: RE03/14/[address]: Juli Jean MD : 1965 BED: DIS: 03/14/2025 SPEC #: [id number] RECD: 03/14/25 11:40 STATUS: CHASE WALKER #: [id number] MARYANA: 03/14/25 08:[address]: Juli Jean DEPT: [facility] Surgical RECD BY: Mikayla Post ENTERED: 03/14/25 11:41 SP TYPE: Surgical OTHR DR: PHYSICIAN NOT ON STAFF Tissues: A - Breast Biopsy B - Lymph Node Biopsy Procedures: Unstained Slides Hematoxylin and Eosin Stain Gross and Microscopic Level 4 ER-60 AK-60 MIB-60 HER 2-60
== END 2025-03-14 07:06 | disposition home or self-care (01) ==
PROVIDERS: Visit Provider Internal Medicine
DX: C50.911 Malignant neoplasm of unspecified site of right female breast (principal); C79.51 Secondary malignant neoplasm of bone; N63.11 Unspecified lump in the right breast, upper outer quadrant
CPT/HCPCS: 19083; 19084; 77065; 88305; 88360; A4648

== ENCOUNTER 2025-03-20 10:25 | Outpatient (CLI) | payer OTHER, SELFPAY ==
--- NOTE | ~2025-03-20 | PE_ITS ---
EXAMINATION: PET skull to mid thigh DATE: 03/20/2025 13:40 INDICATION: Metastatic right breast cancer TECHNIQUE: Blood glucose level was 78 mg/dL. 10.45 mCi of 18-fluorodeoxyglucose (18-FDG) was administered i.v. Low dose computed tomography (CT) images were acquired from the base of the brain to the proximal thighs for attenuation correction and anatomic localization. Positron emission tomography (PET) images were acquired in the same distribution beginning 60 minutes after injection. Images including fused PET/CT images were reconstructed in axial, coronal, and sagittal planes. Automated exposure control technique was employed. The dose- length product was 791.10mGy-cm. COMPARISON: None FINDINGS: Head/neck: There is symmetric increased activity in the oral cavity, palatine tonsils, parotid glands, submandibular glands, laryngeal muscles and ocular muscles without CT correlate, likely physiologic. No pathologically enlarged cervical lymphadenopathy or suspicious foci of increased FDG uptake in the visualized head or neck. Chest: Lungs are clear with no suspicious pulmonary nodules, pneumonia, pulmonary edema or other pulmonary infiltrates. No pleural effusion. Heart size is normal. No pericardial effusion. Thoracic aorta is normal in caliber. Approximately 2 cm region of increased FDG uptake with maximal SUV of 8.7 at the right hilum consistent with a likely metastatic right hilar lymph node which is unable be distinguished from the adjacent hilar vasculature for more accurate assessment of size by CT. There are several normal-sized to mildly enlarged, mild to moderately FDG avid right axillary and subpectoral lymph nodes. The largest and most FDG avid right axillary lymph node measures 1.8 x 1.5 cm with maximal SUV of 12.1. 3.8 x 2.6 cm subareolar right breast mass with prominent increased FDG uptake with maximal SUV of 14.2 consistent with primary breast cancer. There are a couple smaller FDG avid likely malignant satellite nodules located 2 cm superomedial to the larger central breast mass. Abdomen/pelvis/proximal thighs: Physiologic renal accumulation and excretion of FDG activity in the kidneys, bladder and along portions of ureters. 1.2 cm low-attenuation cyst in the left hepatic lobe. There is a 3.5 cm hypodense FDG avid mass in the central right hepatic lobe with maximal SUV of 12.2 consistent with metastatic disease. There is a second subtle 1.2 cm hypodense lesion at the dome of the right hepatic lobe with maximal SUV of 4.0 which is slightly more prominent than the surrounding liver potentially representing a second metastatic lesion. The gallbladder, pancreas, spleen and bilateral adrenal glands are normal. Mild uptake scattered throughout the bowels without radiologic correlate, also likely physiologic. No rmal appendix. Moderate diverticulosis with descending and sigmoid colon predominance without adjacent from trace stranding to suggest diverticulitis. 1.2 x 0.7 cm FDG avid and likely metastatic infrarenal aortocaval lymph node with maximal SUV of 5.1. No other abnormal foci of increased FDG uptake or pathologically enlarged lymphadenopathy in the abdomen, pelvis or proximal thighs. Musculoskeletal: Likely metastatic 2.7 x 2.1 cm expansile lytic lesion at the base of the left acromial process which erodes through the anterior and posterior cortices and with increased FDG uptake with maximal SUV of 17.1. There is additional prominent FDG avid lesion in the proximal left humeral diaphysis with maximal SUV of 14.4 which corresponds to a 7 mm nodular focus of soft tissue density replacing the normal fatty marrow. Additional lytic lesions with central soft tissue density and coarsening FDG uptake in the pelvis and the largest at the right sacral ala measuring 3.7 cm in maximal diameter with maximal SUV of 18.4 and 1.6 similar lesion at the iliac side of the left sacroiliac joint with maximal SUV of 13.0 and 1 cm lesions at the left femoral head with maximal SUV of 9.8 and at the left pubic body with maximal SUV of 10.6. IMPRESSION: 1. 3.8 x 2.6 cm FDG avid subareolar right breast mass consistent with primary breast cancer with couple nearby likely malignant satellite nodules in the right breast and multiple echogenic right hilar and subpectoral lymph nodes consistent with local metastatic disease. Additional more diffuse metastases including metastatic lymph nodes at the right hilum and infrarenal aortocaval regions, And potentially 2 metastatic hepatic masses and multiple scattered lytic and FDG avid metastatic bone lesions. Reviewed, dictated and finalized at location A. IMPRESSION: 1. 3.8 x 2.6 cm FDG avid subareolar right breast mass consistent with primary b reast cancer with couple nearby likely malignant satellite nodules in the right breast and multiple echogenic right hilar and subpectoral lymph nodes consiste nt with local metastatic disease. Additional more diffuse metastases including metastatic lymph nodes at the right hilum and infrarenal aortocaval regions, And potentially 2 metastatic hepatic masses and multiple scattered lytic and FD G avid metastatic bone lesions.
--- OUTSIDE RECORDS SUMMARY | 2025-03-20 11:06 | XMS_ITS ---
Author Organization [facility] Address [address] [place] [address] Care Team Providers Care Sewage Plant Operator Name Role Phone Mallory Moon DO Primary Care Provider Active Problems Problem Noted Date Diagnosed Date Carcinoma of right breast metastatic to bone 10/2024 History of colon polyps 08/08/2023 Gastroesophageal reflux dise ase with esophagitis without hemorrhage 05/30/2023 Irritable bowel syndrome with diarrhea 3 Current Treatment and Therapy Plans No current plan information found. Past Treatment and Therapy Plans No past plan information found. Lifetime Dose Tracking * Chemical Lifetime Dose Automatic Entry Manual Entr y Effective Dose 13.96 mSv 13.96 mSv 0 mSv Total DLP 653.25 DLP 653.25 DLP 0 DLP CTDIvol Max 9.51 mGy 9.51 mGy 0 mGy Resolved Problems Problem Noted Date Diagnosed Date Resolved Date Chronic diarrhea 11/15/2022 05/30/2023 RUQ abdominal pain 11/15/2022 3
--- OUTSIDE RECORDS SUMMARY | 2025-03-20 11:06 | XMS_ITS | Clinical Summary ---
Author Organization [facility] Address [address] [place] [address] Care Team Providers Care Teacher Advisor Name Role Phone Mallory Moon DO Primary [...] Encounters Date Type Department Care Team Description 03/17/2025 1:05 PM CDT - 03/17/2025 11:59 PM CDT Hospital Encounter [facility] Imaging Services [address] [phone] Juli Jean MD Arrived Discharge Disposition: Home or Self Care 03/12/2025 Abstract [facility] Oncology and Hematology [facility] [address] [place] [address] Jovani Weeks MD 03/12/2025 Orders Only [facility] Oncology and Hematology [facility] [address] [place] [id number] Juli Jean MD Carcinoma of right breast metastatic to bone (CMS/HCC) (Primary Dx) 03/11/2025 External Device Data ST[facility] ABSTRACTION Provider, Abstract 03/11/2025 External Device Data [facility] ABSTRACTION Provider, Abstract 03/11/2025 External Device Data [facility] ABSTRACTION Provider, Abstract 03/06/2025 12:30 PM CDT Office Visit [facility] Oncology and [facility] [address] [place] [id number] Juli Jean MD Carcinoma of right breast metastatic to bone (CMS/HCC) (Primary Dx) 02/11/2025 9:00 AM CDT Office Visit [facility] Gastroenterology [facility] [address] [place] [address] Amy York MD Irritable bowel syndrome with diarrhea (Primary Dx); Gastroesophageal reflux disease with esophagitis without hemorrhage; History of colon polyps 02/04/2025 External Device Data [facility] ABSTRACTION Provider, Abstract 01/19/2025 Refill [facility] Gastroenterology [place] [address] [place] [id number] Amy York MD 12/24/2024 External Device Data [...] on file Legal Sex Female 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 Gender Identity Not on file Sexual Orientation [...] Description 03/27/2025 1:00 PM CDT Office Visit [facility] Oncology and Hematology - [place] [address] [place] [address] Jovani Weeks MD [address] [facility] [address] [place] [address] 06/24/2025 11:20 AM YIELD ENGINEER Office Visit [facility] Internal Medicine [facility] [address] [place] [address] Leoncio Cherry MD [address] [place] [address] 02/17/2026 8:20 AM CDT Office Visit [facility] Gastroenterology [place] [address] [facility] [address] [place] [address] Amy York MD [address] [facility] [facility] [address] [facility] [address] [facility] [address] [place] [address] Health Maintenance Due Date Last [...] INFLUENZA VACCINE (#1) 2025 COVID-19 Vaccine ( season) 2025 01/28/2022, 04/29/2021, 10/26/2020 COLORECTAL SCREENING 01/31/2027 02/01/2024, 02/01/2024, 01/19/2023, Additional history exists Colorectal Cancer Screening 01/31/2027 HEPATITIS B VACCINES Aged Out No long er eligible based on patient's age to complete this topic Procedures Procedure Name Priority Date/Time Associated Diagnosis Comments CT CHEST ABDOMEN PELVIS W CONT Routine 03/17/2025 1:38 PM CDT Carcinoma of right breast metastatic to bone (CMS/HCC) POC CREATININE Routine 03/17/2025 1:22 PM CDT COLONOSCOPY REPORT 02/01/2024 10 :27 AM CDT from Last 3 Months or Most Recently Relevant to Health Maintenance Results * CT CHEST ABDOMEN PELVIS W CONT (03/17/2025 1:38 PM CDT) Anatomical Region Laterality Modality Chest Computed Tomogra phy 03/17/2025 1:24 PM CDT Impressions 03/17/2025 2:13 PM CDT IMPRESSION: 1. Multiple right breast masses compatible with known breast cancer. Right axillary, hepatic, and osseous metastatic disease as above. 2. 8.6 cm heterogeneously enhancing uterine mass. Differential diagnosis includes leiomyoma and leiomyosarcoma. 3. 1.1 cm lower pole right renal cyst not definitely a simple cyst. Renal protocol MRI recommended. 4. 7 mm nonspecific right lower lobe groundglass pulmonary nodule. Attention on follow-up imaging recommended. Narrative 03/17/2025 2:13 PM CDT EXAM: CT chest abdomen pelvis with IV contrast DATE: 03/17/2025 1:38 PM HISTORY: Newly diagnosed breast cancer with bone metastases COMPARISON: None TECHNIQUE: Standard technique was performed after the IV administration of 100 ml Isovue 300. Two-dimensional sagittal and coronal reformatted images obtained. GFR greater than 60. The examination was performed with the adjustment of mA according to the patient size and/or the use of Iterative Reconstruction Technique. FINDINGS: CT CHEST: 7 mm groundglass right lower lobe pulmonary nodule. Mild scattered peripheral right lower lobe mucus plugging. Small bilateral posteromedial fat-containing diaphragmatic hernias. Multiple right breast masses largest 4.2 x 2.9 cm. Mild right breast skin thickening. Multiple enlarged right axillary lymph nodes largest 1.8 cm. Prominent but subcentimeter right subpectoral lymph node. No left axillary, hilar, or mediastinal lymphadenopathy. Normal heart size. No pericardial effusion. No thoracic aortic aneurysm. CT ABDOMEN PELVIS: 3.4 cm hypoenhancing right hepatic lobe lesion. Few other smaller hypoenhancing lesions in the left hepatic lobe. Few small hepatic cysts. Multiple small right renal cysts. 1.1 cm low-density lesion lower pole right kidney not definitely a simple cyst. Too small to characterize cortical hypodensity left kidney likely tiny cyst. Spleen, pancreas, gallbladder, and adrenal glands unremarkable. Minimal distal abdominal aortic atherosclerosis. Diffuse colonic diverticulosis. No bowel obstruction or inflammation. No appendicitis. No mesenteric or retroperitoneal lymphadenopathy. 8.6 x 8.4 x 8.3 cm heterogeneously enhancing anterior uterine mass. Mild free pelvic fluid. Empty bladder. No pelvic or inguinal lymphadenopathy. BONES: 3.1 x 2.3 cm left scapular lytic lesion at the base of the acromion with cortical erosion. 1.9 x 1.2 cm lytic lesion left subarticular iliac bone. Procedure Note Thomas Carmichael MD - 03/17/2025 EXAM: CT chest abdomen pelvis with IV contrast DATE: 03/17/2025 1:38 PM HISTORY: Newly diagnosed breast cancer with bone metastases COMPARISON: None TECHNIQUE: Standard technique was performed after the IV administration of 100 ml Isovue 300. Two-dimensional sagittal and coronal reformatted images obtained. GFR greater than 60. The examination was performed with the adjustment of mA according to the patient size and/or the use of Iterative Reconstruction Technique. FINDINGS: CT CHEST: 7 mm groundglass right lower lobe pulmonary nodule. Mild scattered peripheral right lower lobe mucus plugging. Small bilateral posteromedial fat-containing diaphragmatic hernias. Multiple right breast masses largest 4.2 x 2.9 cm. Mild right breast skin thickening. Multiple enlarged right axillary lymph nodes largest 1.8 cm. Prominent but subcentimeter right subpectoral lymph node. No left axillary, hilar, or mediastinal lymphadenopathy. Normal heart size. No pericardial effusion. No thoracic aortic aneurysm. CT ABDOMEN PELVIS: 3.4 cm hypoenhancing right hepatic lobe lesion. Few other smaller hypoenhancing lesions in the left hepatic lobe. Few small hepatic cysts. Multiple small right renal cysts. 1.1 cm low-density lesion lower pole right kidney not definitely a simple cyst. Too small to characterize cortical hypodensity left kidney likely tiny cyst. Spleen, pancreas, gallbladder, and adrenal glands unremarkable. Minimal distal abdominal aortic atherosclerosis. Diffuse colonic diverticulosis. No bowel obstruction or inflammation. No appendicitis. No mesenteric or retroperitoneal lymphadenopathy. 8.6 x 8.4 x 8.3 cm heterogeneously enhancing anterior uterine mass. Mild free pelvic fluid. Empty bladder. No pelvic or inguinal lymphadenopathy. BONES: 3.1 x 2.3 cm left scapular lytic lesion at the base of the acromion with cortical erosion. 1.9 x 1.2 cm lytic lesion left subarticular iliac bone. IMPRESSION: 1. Multiple right breast masses compatible with known breast cancer. Right axillary, hepatic, and osseous metastatic disease as above. 2. 8.6 cm heterogeneously enhancing uterine mass. Differential diagnosis includes leiomyoma and leiomyosarcoma. 3. 1.1 cm lower pole right renal cyst not definitely a simple cyst. Renal protocol MRI recommended. 4. 7 mm nonspecific right lower lobe groundglass pulmonary nodule. Attention on follow-up imaging recommended. Juli Jean MD CT ORDERABLES Final Resu lt * POC CREATININE (03/17/2025 1:22 PM CDT) CREATININE POC 0.80 0.60 - 1.30 mg/dL 03/17/2025 1:[address] GFR POC >60 >=60 mL/min/1.7 3 sq meter 03/17/2025 1:[address] Comment:eGFR calculated with 2020 CKD-EPI equation. Vegetarian diet, extremely high or low muscle mass, and may affect results. Cystatin C with Glomerular Filtration Rate is a suitable alternative for these patients. Blood, whole 03/17/2025 1:22 PM CDT 03/17/2025 1:24 PM CDT Juli Jean MD POINT OF CARE TESTING Ann Marie l Result [facility] [address] CLIA# [id number] [address] [place] [address] * COLONOSCOPY REPORT (02/01/2024 10:27 AM CDT) Narrative Procedure Note Amy York MD - 02/01/2024 10:27 AM CDT [facility] Endoscopy Patient Name: Patsy Rush Procedure Date: [...] bowel preparation was evaluated using the BBPS ([place] Bowel Preparation Scale) with scores of: Right [...] signed electronically. Number of Addenda: [address]; [place] [address] Amy York MD GI PROCEDURE ORDERABLES Final Re sult from Last 3 Months or Most Recently Relevant to Health [place] [address] [address] [employer] CHOICE POS II [employer] CHOICE POS II Advance Directives For more information, please contact: [phone] * Full Code (Latest Code Status on File) Date Activated Date Inactivated Comments 02/01/2024 9:07 AM 02/01/2024 1:04 PM * Full Code Date Activated Date Inactivated Comments 01/19/2023 10:54 AM 01/19/2023 3:33 PM Care Teams Teacher Advisor Relationship Specialty [place] [address] [place] [address] PCP - General Family Practice 11/15/22
== END 2025-03-20 10:26 | disposition home or self-care (01) ==
PROVIDERS: Visit Provider Internal Medicine
DX: C50.911 Malignant neoplasm of unspecified site of right female breast (principal); C79.51 Secondary malignant neoplasm of bone
CPT/HCPCS: 78815; A9552

== ENCOUNTER 2025-03-26 13:55 | Outpatient (CLI) | payer OTHER, SELFPAY ==
--- NOTE | ~2025-03-26 | MR_ITS ---
EXAMINATION: MR brain/brain stem wo/w con DATE: 03/26/2025 14:38 INDICATION: Carcinoma of right breast. TECHNIQUE: Magnetic resonance imaging (MRI) of the brain and brainstem was performed without and with 12 mL MultiHance intravenous contrast. COMPARISON: None. FINDINGS: There is no intracranial hemorrhage, acute infarction, or abnormal intracranial mass lesion. The ventricles are normal in size. There is a left mastoid effusion. The orbits are normal. The paranasal sinuses are clear. IMPRESSION: 1. Normal brain. Reviewed, dictated and finalized at location E. IMPRESSION: 1. Normal brain.
== END 2025-03-26 13:56 | disposition home or self-care (01) ==
LOC: MICIMG 13:55
PROVIDERS: PCP Internal Medicine Hematology & Oncology; Visit Provider Internal Medicine Hematology & Oncology
DX: C50.911 Malignant neoplasm of unspecified site of right female breast (principal); C79.51 Secondary malignant neoplasm of bone
CPT/HCPCS: 70553; A9577

== ENCOUNTER 2025-03-27 13:56 | Outpatient (CLI) | payer OTHER, SELFPAY ==
--- OUTSIDE RECORDS SUMMARY | 2025-03-27 13:00 | XMS_ITS | Encounter Summary ---
Author Organization [facility] Address [address] [place] [address] Care Team Providers Care Tower Hoist Operator Name Role Phone Mallory Moon Primary Care Provider Reason for Referral * Echocardiography (Routine) - Open Specialty Diagnoses / Procedures Referred By Contac t Referred To Contact Diagnoses Carcinoma of right breast metastatic to bone (CMS/HCC) Procedures ECHO COMPLETE - CONTRAST AND STRAIN IF INDICATED ECHO COMPLETE - CONTRAST AND STRAIN IF INDICATED SD ECHO TTHRC R-T 2D W/WOM-MODE COMPL SPEC&COLR D SD MYOCRD STRAIN IMG SPECKLE TRCK ASSMT MYOCRD [facility] SD TTE W OR WO FOL WCON,DOPPLER Jovani Weeks MD [address] [place] [phone] Phone: tel: fax: Referral ID Status Reason Start Date Expiration Date Visits Re quested Visits Authorized [id number] Open 03/27/2025 04/27/2026 1 1 * Eval and Treat (Routine) - Open Specialty Diagnoses / Procedures Referred By Contac t Referred To Contact Oncology Diagnoses Carcinoma of right breast metastatic to bone (CMS/HCC) Procedures SD OFFICE/OUTPATIENT ESTABLISHED MOD MDM 30 MIN SD OFFICE/OUTPATIENT NEW MODERATE MDM 45 MINUTES Jovani Weeks MD [address] [place] [phone] Phone: tel: fax: Referral ID Status Reason Start Date Expiration Date Visits Re quested Visits Authorized [id number] Open 03/27/2025 03/28/2026 1 1 Scheduling Instructions Herceptin,perjeta and taxotere Reason for Visit * Reason Comments Cancer Follow Up Encounter Details Date Type Department Care Team (Late st Contact Info) Description 03/27/2025 1:00 PM CDT Office Visit [facility] Oncology and Hematology [facility] [address] [facility] [address] [place] [address] Jovani Weeks MD [address] [facility] [address] [place] [address] Carcinoma of right breast metastatic to bone (CMS/HCC) (Primary Dx) Social History Tobacco Use Types Packs/Day Years Used Date Smoking Tobacco: Former Cigarettes Q uit: 12/27/2022 Smokeless Tobacco: Never Alcohol Use Standard Drinks/Week Comments Yes 0 (1 standard drink = 0.6 oz pur e alcohol) socially Feeling Safe Answer Date Recorded Are you in a relationship wi th someone who hurts you emotionally and/or physically? No 02/01/2024 Comments No Sex and Gender Information Value Date Recorded Sex Assigned at Not on file Legal Sex Female 6:03 AM PETROLEUM REFINING FIRER Gender Identity Not on file Sexual Orientation Not on file documented as of this encounter Last Filed Vital Signs Vital Sign Reading Time Taken Comments Blood Pressure 141/74 03/27/2025 1:05 PM CDT Pulse 84 03/27/2025 12:59 PM CDT Temperature 36.8 C (98.3 F) 03/27/2025 12:59 PM CDT Respiratory Rate 15 03/27/2025 12:59 PM CDT Oxygen Saturation 98% 03/27/2025 12:59 PM CDT Inhaled Oxygen Concentration - - Weight 62.7 kg (138 lb 3.2 oz) 03/27/2025 12:59 PM CDT Height - - Body Mass Index 23.72 03/06/2025 12:10 PM CDT documented in this encounter Progress Notes * Jovani Weeks MD - 03/27/2025 2:08 PM CDT HEMATOLOGY / ONCOLOGY PROGRESS NOTE Patient Identification: Name: Patsy Rush Age: 60 y.o. Sex: female : 1965 DIAGNOSIS Metastatic breast cancer status post right breast mass biopsy done on March 14, 2025. CURRENT TREATMENT Expectant TREATMENT HISTORY SUBJECTIVE Patient came to the office for follow-up visit after the breast biopsy was performed. She is havingsome discomfort in the left hip and the left shoulder. Weight and appetite stable. No other new complaints. Review of system Constitutional: Patient did not mention fevers, sweats, fatigue, malaise, weight loss HEENT: Patient did not mention sinus congestion, hearing or vision problems Respiratory: Patient did not mention cough, dyspnea, wheeze Cardiovascular: Patient did not mention chest pain, exertional chest pressure/discomfort, nausea, syncope, shortness of breath GI: Patient did not mention constipation, diarrhea, dsyphagia, reflux symptoms, vomiting, melena : Patient did not mention dysuria, frequency, incontinence, urgency Integumentary system: no lymphadenopathy, sweats, flushing Musculoskeletal: Patient not mention: myalgia, left shoulder and left hip pain Neurological: Patient did not mention blurry or disturbed vision, numbness/weakness, dizziness Skin: No lumps, bumps or rashes. Objective: Vital signs in last 24 hours: As per nursing note Exam: General appearance: alert, cooperative, no distress, appears stated age Head: normocephalic, without obvious abnormality, atraumatic Eyes: conjunctivae/corneas clear, EOM's intact Ears: normal external ear canals AU Nose: Nares normal. Septum midline. Mucosa normal. No drainage or sinus tenderness Throat: Lips, mucosa, and tongue normal. Teeth and gums normal Neck: supple, symmetrical, trachea midline. Lungs: clear to auscultation bilaterally Heart: regular rate and rhythm, S1, S2 normal, no murmur, click, rub or gallop Abdomen: soft, non-tender. Bowel sounds normal. No masses, No organomegaly Extremities: extremities normal, atraumatic, no cyanosis or edema Skin: Skin color, texture, turgor normal. No rashes or lesions Lymph nodes: No lymphadenopathy Neuro: No obvious focal deficit There is a palpable mass in the right upper outer quadrant of the breast with right axillary lymphadenopathy PATH LAB[facility] Labs from March 10, 2025 showed WBC 5.7 hemoglobin 12.1 platelet 259,000 creatinine 0.7 total bilirubin 1.2 CA 15-3 28.5 @IMAGEIMP@ ECOG performance status 0 Assessment: Plan: Patient Active Problem List Diagnosis Date Noted Carcinoma of right breast metastatic to bone (CMS/HCC) 03/06/2025 History of colon polyps 08/08/2023 Gastroesophageal reflux disease with esophagitis without hemorrhage 05/30/2023 Irritable bowel syndrome with diarrhea 11/15/2022 Metastatic breast cancer status post right breast mass biopsy done on March 14, 2025. Patient had biopsy of the right breast mass at between 9 and 12 o'clock position 3 cm from the nipple done onSept2024 showed invasive ductal carcinoma grade 2 along with metastatic adenocarcinoma inthe right axillary lymph node biopsy. ER/SD negative HER2/chet 3+ by IHC and low Ki-67. PET scan from March 20, 2025 showed 3.8 x 2.6 cm right breast mass with couple of nearby satellite nodules in the right breast and right hilar and subpectoral lymphadenopathy along with metastatic lymph node involvement in the right hilum and infra renal aortocaval region. There was potentially2 metastatic liver metastases and multiple lytic FDG avid bone lesions. Brain MRI came back negative for malignancy. I have discussed this finding with patient and the father in detail. I will order [employer] ration sequencing. My plan will be to start her on trastuzumab, pertuzumab and Taxotere based on the Michelle trial. We will refer her for port placement as well as chemotherapy teaching. I will order ec hocardiogram. I have discussed the side effects. I will see her with cycle #2 of chemotherapy in 4 weeks. Bone metastasis. She is going to follow-up with ration oncology for palliative radiation therapy. Will start her on monthly Xgeva. She will take vitamin D and calcium. ? TOBACCO COUNSELING She is not a tobacco/nicotine user. 03/27/2025 Jovani Weeks MD documented in this encounter Miscellaneous Notes * Addendum Note - Camila Lucas - 03/27/2025 3:22 PM CDTAddended by: CAMILA LUCAS on: 03/27/2025 03:22 PM Modules accepted: Orders documented in this encounter Plan of Treatment Upcoming Encounters Date Type Department Care Team (Late st Contact Info) Description 06/24/2025 11:20 AM PETROLEUM REFINING FIRER Office Visit [facility] Internal Medicine - [address] [address] Leoncio Cherry MD [address] [place] [address] 02/17/2026 8:20 AM CDT Office Visit [facility] Gastroenterology [facility] [address] [facility] [address] [place] [address] Amy York MD [address] [facility] [address] [place] [address] Pending Results Name Type Priority Associated Diagnoses Date /Time TEMPUS XT DNA AND RNA Lab Routine Carcinoma of right breast metastatic to bone (CMS/HCC) 03/27/2025 3:21 PM CDT TEMPUS XT NORMAL BLOOD Lab Routine Carcinoma of right breast metastatic to bone (CMS/HCC) 03/27/2025 3:21 PM CDT Scheduled Orders Name Type Priority Associated Diagnoses Order Schedule ECHO COMPLETE - CONTRAST AND STRAIN IF INDICATED Echocardiogram Routine Carcinoma of right breast metastatic to bone (CMS/HCC) 1 Occurrences starting 03/27/2025 until 05/27/2026 MISCELLANEOUS LAB TEST Lab Routine Carcinoma of right breast metastatic to bone (CMS/HCC) Expected: 03/27/2025, Expires: 03/27/2026 TEMPUS XT DNA AND RNA Lab Routine Carcinoma of right breast metastatic to bone (CMS/HCC) Expected: 03/27/2025, Expires: 03/27/2026 TEMPUS XF Lab Routine Carcinoma of right breast metastatic to bone (CMS/HCC) Expected: 03/27/2025, Expires: 03/27/2026 TEMPUS XT DNA AND RNA SOLID TUMOR Lab Routine Carcinoma of right breast metastatic to bone (CMS/HCC) Ordered: 03/27/2025 Scheduled Referrals Name Type Priority Associated Diagnoses Orde r Schedule AMB REFERRAL TO CHEMO TEACHING Outpatient Referral Routine Carcinoma of right breast metastatic to bone (CMS/HCC) Ordered: 03/27/2025 documented as of this encounter Visit Diagnoses Diagnosis Carcinoma of right breast metastatic to bone (CMS/HCC)- Primary documented in this encounter Care Teams Tower Hoist Operator Relationship Specialty [place] [address] [place] [address] PCP - General Family Practice 11/15/22 documented as of this encounter
--- OUTSIDE RECORDS SUMMARY | 2025-03-27 16:42 | XMS_ITS | Patient Health Record ---
Author Organization [facility] [employer] Address [address] [place] [address] Care Team Providers Care Metal Off Bearer Name Role Phone Ysabel Jeffrey Primary Care [...] W/U Status Risk Notes Problem Chronic tonsillitis (89177909) Chronic tonsillitis (J35.01) Active confirmed Problem Benign essential hypertension (3708870) Benign essential hypertension (I10) Active confirmed Problem Skin sensation disturbance (82748089) Numbness and tingling of right leg (R20.2) Active confirmed Problem Vitamin D deficiency (32066410) Vitamin D deficiency (E55.9) Active confirmed Problem Sciatica (23055905) Back pain of lumbar region with sciatica (M54.40) Active confirmed Problem Drug allergy (177050427) Drug allergy (Z88.9) Active confirmed Problem Flatulence (704320429) Flatulence (R14.3) 0 confirmed Ochoa Problem Malaise (092840940) Other malaise (R53.81) 0 confirmed Ochoa Problem General examination of patient (596312207) Routine medical exam (Z00.00) 0 confirmed Ochoa Problem Allergic rhinitis (60302103) Allergic rhinitis (J30.9) 0 confirmed Ochoa Problem Migraine (91951414) Migraine (G43.909) 0 confirmed Ochoa Problem Hearing loss (49749092) Hearing loss (H91.90) 0 confirmed Ochoa Problem Gynecological examination normal (413294138180766) Routine gynecological examination (Z01.419) 0 confirmed Ochoa Problem Urinary frequency (216812030) Urinary frequency (R35.0) 0 confirmed Ochoa Problem Other specified disorder of intestines (K63.89) 0 confirmed Ochoa Problem Female genital organ symptoms (113316321) Other specified symptom associated with female genital organs (N94.89) 0 confirmed Ochoa Plan Of Treatment No Information Insurance Providers Payer Name Payer Address Payer Phone Subscriber Number Group Number Insured Name Patient Relationship to Insured Coverage Start Date Coverage End Date [employer] [address] [place] [address] [id number] [phone] Patsy Rush Self - patient is the insured Medical (General) History Medical History History ICD Code Chronic diarrhea SIBO Benign lump right breast Arthroscopic surgery left knee
--- OUTSIDE RECORDS SUMMARY | 2025-03-27 16:42 | XMS_ITS | Clinical Summary ---
Author Organization [facility] Address [address] [place] [address] Care Team Providers Care Job Spotter Name Role Phone Mallory Moon DO Primary [...] mouth daily. 90 Tablet 3 02/11/2025 Active Active Problems Problem Noted Date Diagnosed Date Carcinoma of right breast metastatic to bone 10/2024 History of colon polyps 08/08/2023 Gastroesophageal reflux dise ase with esophagitis without hemorrhage 05/30/2023 Irritable bowel syndrome with diarrhea 3 Resolved Problems Problem Noted Date Diagnosed Date Resolved Date Chronic diarrhea 11/15/2022 05/30/2023 RUQ abdominal pain 11/15/2022 Encounters Date Type Department Care Team Description 03/27/2025 1:00 PM CDT [facility] Visit [facility] [address] [place] [address] Jovani Weeks MD Carcinoma of right breast metastatic to bone (CMS/HCC) (Primary Dx) 03/27/2025 Orders Only [facility] Hematology [facility] [address] [place] [address] Jovani Weeks MD 03/17/2025 1:05 PM CDT - 03/17/2025 11:59 PM CDT Hospital Encounter [facility] Imaging Services [address] [address] Juli Jean MD Discharge Disposition: Home or Self Care 03/12/2025 Abstract [facility] [address] [place] [address] Jovani Weeks MD 03/12/2025 Orders Only [facility] [address] [place] [address] Juli Jean MD Carcinoma of right breast metastatic to bone (CMS/HCC) (Primary Dx) 03/11/2025 External Device Data STL ABSTRACTION Provider, Abstract 03/11/2025 External Device Data STL ABSTRACTION Provider, Abstract 03/11/2025 External Device Data STL ABSTRACTION Provider, Abstract 03/06/2025 12:30 PM CDT Office Visit [facility] [address] [place] [address] Juli Jean MD Carcinoma of right breast metastatic to bone (CMS/HCC) (Primary Dx) 02/11/2025 9:00 AM CDT Office Visit [facility] Gastroenterology [facility] [address] [facility] [address] [place] [address] Amy York MD Irritable bowel syndrome with diarrhea (Primary Dx); Gastroesophageal reflux disease with esophagitis without hemorrhage; History of colon polyps 02/04/2025 External Device Data STL ABSTRACTION Provider, Abstract 01/19/2025 Refill [facility] Gastroenterology [facility] [address] [facility] [address] [place] [address] Amy York MD from Last 3 Months Family History Medical [...] on file Legal Sex Female 6: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 MECHANIC Gender Identity Not on file Sexual Orientation [...] 3.2 oz) 03/27/2025 12:59 PM CDT Height 162.6 cm (5' 4) 03/06/2025 12:10 PM CDT Body Mass Index 23.72 03/06/2025 12:10 PM CDT Plan of Treatment Upcoming Encounters Date Type Department Care Team (Late st Contact Info) Description 06/24/2025 11:20 AM ASSISTANT MECHANIC Office Visit [facility] Internal Medicine - [address] [address] Leoncio Cherry MD [address] [place] [address] 02/17/2026 8:20 AM CDT Office Visit [facility] Gastroenterology [place] [address] [facility] [facility] [address] [place] [address] [place] [address] Amy York MD [address] [facility] [address] [facility] [address] [place] [address] Health Maintenance Due Date Last [...] Procedure Name Priority Date/Time Associated Diagnosis Comments PET BONE IMG W CT SKL BSE MID THG Routine 03/20/2025 9:[address] CHEST ABDOMEN PELVIS W CONT Routine 03/17/2025 1:38 PM CDT Carcinoma of right breast metastatic to bone (CMS/HCC) POC CREATININE Routine 03/17/2025 1:22 PM CDT COLONOSCOPY REPORT 02/01/2024 10 :27 AM CDT from Last 3 Months or Most Recently Relevant to Health Maintenance Results * PET BONE IMG W CT SKB MDTH (03/20/2025 9:34 AM CDT) Anatomical Region Laterality Modality Positron Emissio n Tomography (PET) Jovani Weeks MD PE ORDERABLES Final Result * CT CHEST ABDOMEN PELVIS W CONT [...] PM CDT STLO CT [address] Comment:eGFR calculated with 2020 CKD-EPI equation. Vegetarian diet, extremely high or low muscle mass, and may affect results. Cystatin C with Glomerular Filtration Rate is a suitable alternative for these patients. Blood, whole 03/17/2025 1:22 PM CDT 03/17/2025 1:24 PM CDT Juli Jean MD POINT OF CARE TESTING Ann Marie piper Result STLO CT [address] CLIA# [id number] [address] [place] [address] * COLONOSCOPY REPORT (02/01/2024 10:27 AM CDT) Narrative Procedure Note Amy York MD - 02/01/2024 10:27 AM CDT [facility] Endoscopy Patient Name: Patsy Rush Procedure Date: [...] bowel preparation was evaluated using the BBPS (Lyman Bowel Preparation Scale) with scores of: Right [...] of Addenda: [address]; [place] [address] Amy York MD GI PROCEDURE ORDERABLES Final Re sult from Last 3 Months or Most Recently Relevant to Health Maintenance [place] [id number] [employer] CHO[employer] POS II [employer] POS II Advance Directives For more information, please contact: [phone] * Full Code (Latest Code Status on File) Date Activated Date Inactivated Comments 02/01/2024 9:07 AM 02/01/2024 1:04 PM * Full Code Date Activated Date Inactivated Comments 01/19/2023 10:54 AM 01/19/2023 3:33 PM Care Teams Job Spotter Relationship Specialty [place] [address] [place] [address] PCP - General Family Practice 11/15/22
--- OUTSIDE RECORDS SUMMARY | 2025-03-27 16:42 | XMS_ITS | Encounter Summary ---
Author Organization [facility] Address [address] [place] [address] Care Team Providers Care Hvac R Tech Name Role Phone Mallory Moon DO Primary Care Provider Encounter Details Date Type Department Care Team (Late Contact Info) Description 03/27/2025 Orders Only [facility] Oncology and Hematology - [place] [address] [facility] [address] [place] [address] Jovani Weeks MD [address] [facility] [address] [place] [address] Social History Tobacco Use Types Packs/Day Years [...] on file Legal Sex Female 6:03 AM EXAMINATION SUPERVISOR Gender Identity Not on file Sexual Orientation Not on file documented as of this encounter Plan of Treatment Upcoming Encounters Date Type Department Care Team (Late Contact Info) Description 06/24/2025 11:20 AM EXAMINATION SUPERVISOR Office Visit [facility] Internal Medicine - [facility] [address] [place] [address] Leoncio Cherry MD [address] [place] [address] 02/17/2026 8:20 AM CDT Office Visit [facility] [place] [address] [place] [address] [place] [address] Amy York MD [address] [facility] [address] [place] [address] [place] [address] documented as of this encounter Procedures Procedure Name Priority Date/Time Associated Diagnosis Comments PET BONE IMG W CT SKL BSE MID THG Routine 03/20/2025 9:34 AM CDT documented in this encounter Results * PET BONE IMG W CT SKB MDTH (03/20/2025 9:34 AM CDT) Anatomical Region Laterality Modality Positron Emissio n Tomography (PET) Jovani Weeks MD PE ORDERABLES Final Result documented in this encounter Visit Diagnoses Not on filedocumented in this encounter Care Teams Hvac R Tech Relationship Specialty [place] [address] [place] [address] PCP - General Family Practice 11/15/22 documented as of this encounter
--- OUTSIDE RECORDS SUMMARY | 2025-03-27 16:42 | XMS_ITS ---
Author Organization [facility] Address [address] [place] [address] Care Team Providers Care Vessel Slag Worker Name Role Phone Mallory Moon DO Primary [...]
== END 2025-03-27 13:57 | disposition home or self-care (01) ==
PROVIDERS: PCP Internal Medicine Hematology & Oncology; Visit Provider Internal Medicine Hematology & Oncology
DX: C50.911 Malignant neoplasm of unspecified site of right female breast (principal); C79.51 Secondary malignant neoplasm of bone
CPT/HCPCS: 36415

== ENCOUNTER 2025-04-04 10:27 | Outpatient (CLI) | payer OTHER, SELFPAY ==
--- NOTE | 2025-04-04 | ECHO_ITS ---
Patient Info Name: Patsy Rush Age: 60 years : 1965 Gender: Female Ht: 64 in Wt: 140 lbs BSA: 1.70 m2 HR: 64 bpm BP: 125 / 85 mmHg Technical Quality: Good Exam Date: 04/04/2025 11:00 AM Patient Status: O Admit Date: 04/04/2025 Exam Type: CA echo doppler color flow Complete two-dimensional, color flow and Doppler transthoracic echocardiogram is performed. Strain analysis performed. Steam Plant Control Room Operator: Norma Cai Attending Provider: Jovani Weeks MD Summary 1. Complete two-dimensional, color flow and Doppler transthoracic echocardiogram is performed. 2. Left ventricular chamber dimension is normal. 3. Left ventricular systolic function is normal, estimated at 60-65. 4. The left ventricular diastolic function is grade I diastolic dysfunction. 5. E/e' 6 is not elevated. 6. Global longitudinal strain is normal at -18.8%. Left Ventricle E/e' 6 is not elevated. Left ventricular chamber dimension is normal. Left ventricular systolic function is normal, estimated at 60-65. The left ventricular diastolic function is grade I diastolic dysfunction. Global longitudinal strain is normal at -18.8%. Right Ventricle Right ventricular chamber dimension is normal. Right ventricular systolic function is normal. Left Atria Left atrial chamber dimension is normal. Right Atria Right atrial chamber dimension is normal. Aortic Valve The aortic valve is trileaflet. There is no aortic valve stenosis. There is no aortic valve regurgitation. Pulmonic Valve There is no pulmonic regurgitation. Mitral Valve There is no mitral valve stenosis. There is no mitral valve regurgitation. Tricuspid Valve There is no tricuspid valve regurgitation. Pericardium/Pleural There is no pericardial effusion. Inferior Vena Cava Normal inferior vena cava with >50% collapse upon inspiration consistent with normal right atrial pressure, 5 mmHg. Aorta The aortic root size at the sinus of Valsalva is normal. Left Ventricular Outflow Tract Name Value Normal LVOT 2D LVOT Diameter 2.0 cm LVOT Doppler LVOT Peak Velocity 118 cm/s LVOT Peak Gradient 6 mmHg LVOT Mean Gradient 3 mmHg LVOT VTI 27 cm LVOT VTI/AV VTI Ratio 0.8 LVOT Stroke Volume 84 ml LVOT CO 5.4 l/min LVOT CI 3.1 l/min/m2 Pulmonic Valve Name Value Normal RVOT Doppler RVOT Peak Velocity 64 cm/s RVOT Peak Gradient 2 mmHg PV Doppler PV Peak Velocity 112 cm/s PV Peak Gradient 5 mmHg Mitral Valve Name Value Normal MV Diastolic Function MV E Peak Velocity 66 cm/s MV A Peak Velocity 67 cm/s MV E/A 1.0 MV Decel Time (PW) 266 ms MV Annular TDI MV E/e' (Septal) 7.1 MV E/e' (Lateral) 5.6 MV E/e' (Average) 6.3 Tricuspid Valve Name Value Normal Estimated PAP/RSVP RA Pressure 5 mmHg <=5 Aortic Valve Name Value Normal AV Doppler AV Peak Velocity 148 cm/s AV Peak Gradient 9 mmHg AV Mean Gradient 4 mmHg AV VTI 33 cm AV Area (Cont Eq VTI) 2.5 cm2 >=3.0 AV Area (Cont Eq Donell) 2.5 cm2 AV DI (Donell) 0.80 AV Regurgitation 2D LVOT Area 3.1 cm2 Ventricles Name Value Normal LV Dimensions 2D/MM IVS Diastolic Thickness (2D) 0.7 cm 0.6-1.0 LVID Diastole (2D) 4.0 cm 3.8-5.2 LVIW Diastolic Thickness (2D) 1.0 cm 0.6-0.9 LVID Systole (2D) 2.5 cm 2.2-3.5 LVOT Diameter 2.0 cm LV Mass (2D Cubed) 102.06 g 67.00-162.00 LV Mass Index (2D Cubed) 60 g/m2 43-95 Relative Wall Thickness (2D) 0.47 <=0.42 LV Fractional Shortening/Ejection Fraction 2D/MM LV Fractional Shortening (2D) 37 % 27-45 LV EF (2D Teichholz) 68 % LV Diastolic Volume (4C MOD) 70 ml LV EF (4C MOD) 59 % LV Diastolic Volume (2C MOD) 81 ml LV EF (2C MOD) 67 % LV Diastolic Volume (BP MOD) 78 ml 46-106 LV Diastolic Volume Index (BP MOD) 46 ml/m2 29-61 LV Systolic Volume (BP MOD) 28 ml 14-42 LV Systolic Volume Index (BP MOD) 17 ml/m2 8-24 LV EF (BP MOD) 64 % 54-74 LV Diastolic Length (4C) 7.6 cm LV Systolic Length (4C) 6.4 cm LV Stroke Volume (4C MOD) 41 ml Atria Name Value Normal LA Dimensions LA Volume (4C A-L) 21 ml LA Volume (BP A-L) 25 ml RA Dimensions RA Systolic Major Olive Length (4C) 3.7 cm 2.2-2.8 RA Area (4C) 8.3 cm2 <=18.0 EchoPAC Name Value Normal RHONDA LV Apical Anterior Longitudinal Strain (RHONDA) -16.5 % LV Apical Anteroseptal Longitudinal Strain (RHONDA) -22.7 % LV Apical Inferior Longitudinal Strain (RHONDA) -22.7 % LV Apical Lateral Longitudinal Strain (RHONDA) -23.6 % LV Apical Posterior Longitudinal Strain (RHONDA) -18.1 % LV Apical Septal Longitudinal Strain (RHONDA) -23.5 % AV Closure (RHONDA) 388 ms LV Basal Anterior Longitudinal Strain (RHONDA) -21.1 % LV Basal Anteroseptal Longitudinal Strain (RHONDA) -13.5 % LV Basal Inferior Longitudinal Strain (RHONDA) -22.3 % LV Basal Anterolateral Longitudinal Strain (HRONDA) -17.4 % LV Basal Inferolateral Longitudinal Strain (RHONDA) -18.5 % LV Basal Inferoseptal Longitudinal Strain (RHONDA) -19.1 % LV Global Longitudinal Strain (2C RHONDA) -19.7 % LV Global Longitudinal Strain (4C RHONDA) -19.7 % LV Global Longitudinal Strain (APLAX RHONDA) -17.1 % LV Global Longitudinal Strain (RHONDA) -18.8 % LV Mid Anterior Longitudinal Strain (RHONDA) -20.2 % LV Mid Anteroseptal Longitudinal Strain (RHONDA) -17.7 % LV Mid Inferior Longitudinal Strain (RHONDA) -23.2 % LV Mid Anterolateral Longitudinal Strain (RHONDA) -18.9 % LV Mid Inferolateral Longitudinal Strain (RHONDA) -15.7 % LV Mid Inferoseptal Longitudinal Strain (RHONDA) -18.7 % Report Signatures
--- OUTSIDE RECORDS SUMMARY | 2025-04-04 10:36 | XMS_ITS | Patient Health Record ---
Author Organization [facility] Address [address] [place] [address] Care Team Providers Care Technology Training Associate Name Role Phone Ysabel Jeffrey Primary Care [...] W/U Status Risk Notes Problem Chronic tonsillitis (00024286) Chronic tonsillitis (J35.01) Active confirmed Problem Benign essential hypertension (9076785) Benign essential hypertension (I10) Active confirmed Problem Skin sensation disturbance (17576214) Numbness and tingling of right leg (R20.2) Active confirmed Problem Vitamin D deficiency (82326037) Vitamin D deficiency (E55.9) Active confirmed Problem Sciatica (73765130) Back pain of lumbar region with sciatica (M54.40) Active confirmed Problem Drug allergy (704073275) Drug allergy (Z88.9) Active confirmed Problem Flatulence (535968572) Flatulence (R14.3) 0 confirmed Ochoa Problem Malaise (358730209) Other malaise (R53.81) 0 confirmed [place]cho[place] Problem General examination of patient (173367942) Routine medical exam (Z00.00) 0 confirmed [place]choa Problem Allergic rhinitis (96938034) Allergic rhinitis (J30.9) 0 confirmed [place]choa Problem Migraine (62648391) Migraine (G43.909) 0 confirmed [place]choa Problem Hearing loss (94086195) Hearing loss (H91.90) 0 confirmed Ochoa Problem Gynecological examination normal (803024110268503) Routine gynecological examination (Z01.419) 0 confirmed [place]choa Problem Urinary frequency (076139219) Urinary frequency (R35.0) 0 confirmed Ochoa Problem Other specified disorder of intestines (K63.89) 0 confirmed [place]cho[place] Problem Female genital organ symptoms (880799166) Other specified symptom associated with female genital organs (N94.89) 0 confirmed Ochoa Plan Of Treatment No Information Insurance Providers Payer Name Payer Address Payer Phone Subscriber Number Group Number Insured Name Patient Relationship to Insured Coverage Start Date Coverage End Date [employer] [address] [place] [address] [id number] Patsy Rush Self - patient is the insured Medical (General) History Medical History History ICD Code Chronic diarrhea SIBO Benign lump right breast Arthroscopic surgery left knee
--- OUTSIDE RECORDS SUMMARY | 2025-04-04 10:36 | XMS_ITS | Clinical Summary ---
Author Organization [facility] Address [address] [place] [address] Care Team Providers Care Orientation & Mobility Specialist Name Role Phone Mallory Moon DO Primary [...] Description 03/27/2025 1:00 PM CDT Office Visit [facility] Oncology [facility] [address] [place] [address] Jovani Weeks MD Carcinoma of right breast metastatic to bone (CMS/HCC) (Primary Dx) 03/27/2025 Orders Only [facility] Oncology [facility] Hematology [facility] [address] [place] [address] Jovani Weeks MD 03/17/2025 1:05 PM CDT - 03/17/2025 11:59 PM CDT Hospital Encounter [facility] Imaging Services [address] [address] Juli Jean MD Discharge Disposition: Home or Self Care 03/12/2025 Abstract [facility] Oncology [facility] [address] [place] [address] Jovani Weeks MD 03/12/2025 Orders Only [facility] Oncology [facility] [address] [place] [address] Juli Jean MD Carcinoma of right breast metastatic to bone (CMS/HCC) (Primary Dx) 03/11/2025 External Device Data STL ABSTRACTION Provider, Abstract 03/11/2025 External Device Data STL ABSTRACTION Provider, Abstract 03/11/2025 External Device Data STL ABSTRACTION Provider, Abstract 03/06/2025 12:30 PM CDT Office Visit [facility] [address] [place] [address] Juli Jean MD Carcinoma of right breast metastatic to bone (CMS/HCC) (Primary Dx) 02/11/2025 9:00 AM CDT Office Visit [facility] Gastroenterology [facility] [address] [facility] [address] [place] [address] Amy York MD Irritable bowel syndrome with diarrhea (Primary Dx); Gastroesophageal reflux disease with esophagitis without hemorrhage; History of colon polyps 02/04/2025 External Device Data STL ABSTRACTION Provider, Abstract 01/19/2025 Refill [facility] Gastroenterology [facility] [address] [facility] [address] [place] [address] Amy York MD from Last [...] on file Legal Sex Female 6:03 AM DISPOSAL MAN Gender Identity Not on file Sexual Orientation [...] st Contact Info) Description 06/24/2025 11:20 AM DISPOSAL MAN Office Visit [facility] Internal Medicine - [address] [address] Leoncio Cherry MD [address] [place] [address] 02/17/2026 8:20 AM CDT Office Visit [facility] Gastroenterology [place] [address] [facility] [address] [place] [address] Amy York MD [address] [facility] [address] [facility] [address] [facility] [address] [place] [address] Health Maintenance Due Date Last [...] Procedure Name Priority Date/Time Associated Diagnosis Comments [facility] NORMAL BLOOD Routine 03/27/2025 3:21 PM CDT Carcinoma of right breast metastatic to bone (CMS/HCC) PET BONE IMG W CT SKL BSE MID THG Routine 03/20/2025 9:[address] CHEST ABDOMEN PELVIS W CONT Routine 03/17/2025 1:38 PM CDT Carcinoma of right breast metastatic to bone (CMS/HCC) POC CREATININE Routine 03/17/2025 1:22 PM CDT COLONOSCOPY REPORT 02/01/2024 10 :27 AM CDT from Last 3 Months or Most Recently Relevant to Health Maintenance Results * [facility] XT NORMAL BLOOD (03/27/2025 3:21 PM CDT) [facility] 03/27/2025 11:00 PM CDT [facility] Comment:See NGS Report for R esults. Blood specimen (specimen) 03/27/2025 3:21 PM CDT 03/27/2025 3:23 PM CDT us Jovani Weeks MD MOLECULAR ORDERABLES Final Resu lt [facility] [address] [facility], [address] [place] [address], [facility] [address], [address] [place] [address] * PET BONE IMG W CT SKB MD (03/20/2025 9:34 AM CDT) Anatomical Region Laterality Modality Positron Emissio n Tomography (PET) us Jovani Weeks MD PE ORDERABLES Final Result [...] pulmonary nodule. Attention on follow-up imaging recommended. us Juli Jean MD CT ORDERABLES Final Resu [...] 1:22 PM CDT 03/17/2025 1:24 PM CDT us Juli Jean MD POINT OF CARE TESTING Ann Marie l Result [facility]LO CT [address] CLIA# [id number] [address] [place] [address] * COLONOSCOPY REPORT (02/01/2024 10:27 AM CDT) [...] bowel preparation was evaluated using the BBPS ([place] Bowel Preparation Scale) with scores of: Right [...] for surveillance based on pathology results. - Kate and zogita ok Amy York MD 02/01/2024 10:27:04 AM This report has been signed electronically. Number of Addenda: [address]; [place] [address] Amy York MD GI PROCEDURE ORDERABLES Final Re sult from Last 3 Months or Most Recently Relevant to Health Maintenance [place] [address] [address] [address] [place] [address] [address] [employer] CHO[employer] POS II Advance Directives For more information, please contact: [phone] * Full Code (Latest Code Status on File) Date Activated Date Inactivated Comments 02/01/2024 9:07 AM 02/01/2024 1:04 PM * Full Code Date Activated Date Inactivated Comments 01/19/2023 10:54 AM 01/19/2023 3:33 PM Care Teams Orientation & Mobility Specialist Relationship Specialty [place] [address] [facility] [place] [address] PCP - General Family Practice 11/15/22
--- OUTSIDE RECORDS SUMMARY | 2025-04-04 10:36 | XMS_ITS ---
Author Organization [facility] Address [address] [place] [address] Care Team Providers Care Private Detective Name Role Phone Mallory Moon DO Primary [...]
== END 2025-04-04 10:28 | disposition home or self-care (01) ==
PROVIDERS: Visit Provider Internal Medicine Hematology & Oncology
DX: C50.911 Malignant neoplasm of unspecified site of right female breast (principal); C79.51 Secondary malignant neoplasm of bone
CPT/HCPCS: 93306

== ENCOUNTER 2025-04-11 12:58 | Outpatient (CLI) | payer OTHER, SELFPAY ==
--- NOTE | 2025-04-11 13:00 | ECG_ITS ---
Test Date: 2025-04-11 13:16:44 Measurements Intervals [place] Rate: 75 P: 55 OK: 152 QRS: 62 QRSD: 95 T: 52 QT: 379 QTc: 423 Interpretive Statements SINUS RHYTHM INCOMPLETE RIGHT BUNDLE BRANCH BLOCK BASELINE ARTIFACT- V4-V6 BORDERLINE ECG No previous ECG available for comparison Electronically Signed On 04-11-2025 13:24:21 CDT by Curtis Carpenter D.O.
[2025-04-11 13:41] LABS: INR 1.0; Prothrombin Time 13.3 Seconds (11.1-14.7)
[2025-04-11 13:42] LABS: Partial Thromboplastin Time 20.2 Seconds (22.3-36.8)
== END 2025-04-11 12:59 | disposition home or self-care (01) ==
PROVIDERS: Visit Provider Surgery
DX: E78.00 Pure hypercholesterolemia, unspecified (principal); C50.919 Malignant neoplasm of unspecified site of unspecified female breast
CPT/HCPCS: 36415; 85610; 85730; 93005

== ENCOUNTER 2025-04-13 10:48 | Emergency (ER) | payer OTHER, SELFPAY ==
--- NOTE | ~2025-04-13 | CT_ITS ---
EXAMINATION: CT abdomen pelvis w con DATE: 04/13/2025 12:52 INDICATION: Nausea. Abdominal discomfort. TECHNIQUE: Computed tomography (CT) of the abdomen and pelvis was performed with 100 mL Omnipaque 350 intravenous contrast. Automated exposure control and iterative reconstruction technique were employed. The dose-length product was 414.93 mGy-cm. COMPARISON: PET/CT 03/20/2025 FINDINGS: The visualized portions of the lung bases are clear without pneumonia or pleural effusion. The heart size is normal. No pericardial effusion. There are cysts in the liver measuring up to 11 mm. There are approximately 3 masses in the liver measuring up to 3.8 cm. The gallbladder, spleen, pancreas, adrenal glands, and left kidney are normal. There are cysts in right kidney measuring up to 2.5 cm. There is a 9.5 cm mass in the uterus, likely a fibroid. There is diverticulosis of the colon without evidence of diverticulitis. The appendix is normal. There are no dilated loops of bowel. There are no pathologically enlarged lymph nodes. There is no free intraperitoneal fluid. There is a lytic l esion in the sacrum on the right. There is a lytic lesion in the left ilium. No lytic lesions in the left parasymphyseal pubis and left femoral head. IMPRESSION: 1. Liver masses and bone lesions, consistent with metastatic disease. 2. 9.5 cm mass in the uterus, likely a uterine fibroid. Reviewed, dictated and finalized at location E.
--- NOTE | ~2025-04-13 | XR_ITS ---
Examination: XR chest 1V portable Clinical History: Weakness Comparison: PET/CT 03/20/2025 Technique: Portable AP Findings: Heart size normal. Lungs clear. Bony metastases poorly seen on plain film. IMPRESSION: 1. No acute cardiopulmonary findings given portable technique. Reviewed, dictated and finalized at location R.
[2025-04-13 10:54] VITALS: BP 159/73; PULSE 71; RESP 20; TEMP 36.4; O2SAT 99
--- NOTE | 2025-04-13 11:05 | ECG_ITS ---
Test Date: 2025-04-13 11:21:45 Measurements Intervals [place] Rate: 60 P: 67 DE: 163 QRS: 58 QRSD: 96 T: 67 QT: 406 QTc: 406 Interpretive Statements SINUS RHYTHM BASELINE ARTIFACT- I, II, AVR, AVL NORMAL ECG Compared to ECG 04/11/2025 13:16:44 NO SIGNIFICANT CHANGE Electronically Signed On 04-13-2025 16:43:16 CDT by Curtis Carpenter D.O.
--- NOTE | 2025-04-13 11:23 | ED.GENADULT ---
HPI - General Adult General Chief complaint: Weakness Stated complaint: CANCER PT, INCREASED WEAKNESS, FEVER Time Seen by Provider: 04/13/25 10:56 History of Present Illness HPI narrative: Patient is a 60-year-old female who presents emergency department with chief complaint of generalized weakness. Patient reports she has history of metastatic breast cancer and is scheduled to start radiation and then have a port placed and start chemo. The patient reports she sees Dr. Weeks. Patient reports that she got her COVID vaccine and reports that she has had some low-grade fevers at home reports she has had nausea and reports generalized weakness Related Data Home Medications ?Medication ?Instructions ?Recorded ?Confirmed ?Last Taken ?Type Flonase 1 spray EACH NARE DAILY allergies 02/22/25 04/10/25 Unknown History cetirizine 10 mg PO DAILY 02/22/25 04/10/25 Unknown History colestipol 1 gram tablet 1 g PO DAILY 02/22/25 04/10/25 Unknown History famotidine 20 mg tablet (Acid 20 mg PO BID 02/22/25 04/10/25 Unknown History Controller) simvastatin 10 mg tablet 10 mg PO DAILY 02/22/25 04/10/25 Unknown History tizanidine 2 mg tablet 2 mg PO HS 02/22/25 04/10/25 Unknown History multivitamin (Daily Multi-Vitamin 1 tablet PO DAILY 03/06/25 04/10/25 Unknown History tablet) calcium 600 mg (as 1 cap PO QPM 04/11/25 04/11/25 Unknown History carbonate)-vitamin D3 5 mcg (200 unit) capsule (Calcium 600 + D(3)) Allergies Allergy/AdvReac Type Severity Reaction Status Date / Time shellfish derived Allergy Severe Unknown Verified 04/13/25 10:59 cat dander Allergy Mild Hives Verified 04/13/25 10:59 clarithromycin (From Biaxin) Allergy Unknown Unknown Verified 04/13/25 10:59 metronidazole Allergy Unknown Unknown Verified 04/13/25 10:59 Sulfa (Sulfonamide Allergy Unknown Unknown Verified 04/13/25 10:59 Antibiotics) cefazolin AdvReac Unknown Unknown Verified 04/13/25 10:59 Flu Vaccine Allergy Mild Hives Uncoded 04/01/25 08:51 Review of Systems Review of Systems: A 10 system review of systems was completed on the patient and is negative except for what is stated in the HPI. Nursing and ancillary documentation was reviewed. [facility] Past Medical History Medical History Bone spur Bursitis Surgical History Surgical History History of arthroscopic surgery of shoulder Family History Family History Mother Family history non-contributory Grandparent Cerebrovascular accident Social History Social History Smoking packs per day: 0.25 Smoking cigarettes per day: 5.0 Years smoked: 1 Smoking pack-years: 0.25 Smoking status: Former smoker Tobacco type: cigarettes Smoking end date: 07/03/21 Alcohol intake: current Substance use: current Substance use type: marijuana Other substance usage details: medical mariguana Do You Feel Safe in your Home?: Yes Lack of Transportation: No Lack of Food: Never True Current Housing: I Have Housing Concerned About Future Housing: No Difficulty Paying Gas/Electric Bills: No Difficulty Paying for Meds: No Currently Unemployed: No Education: Bachelor's Degree Difficulty w/ Childcare or Family Care: No Living arrangements: with family 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 HEAD: Normocephalic, atraumatic. EYES: PERRLA and EOMI. ENT: Nares clear, no rhinorrhea or epistaxis. Mucous membranes moist. NECK: Supple. CHEST: Clear to auscultation. No respiratory distress. HEART: Regular rate and rhythm. No murmur heard. Normal peripheral pulses. ABDOMEN: Soft, nontender, nondistended, normal active bowel sounds. EXTREMITIES: Normal range of motion. No edema. SKIN: Warm, dry, no rash. NEURO: No focal deficits. Alert and oriented x3. PSYCH: Normal mood and affect. Course Vital Signs Vital signs: Vital Signs Temperature 36.4 C 04/13/25 10:54 Pulse Rate 71 04/13/25 10:54 Respiratory Rate 20 04/13/25 10:54 Blood Pressure 159/73 H 04/13/25 10:54 Pulse Oximetry 99 04/13/25 10:54 Oxygen Delivery Room Air 04/13/25 10:54 Temperature 37.0 C 04/13/25 11:29 Pulse Rate 70 04/13/25 14:28 Respiratory Rate 19 04/13/25 14:28 Blood Pressure 118/60 04/13/25 14:28 Pulse Oximetry 99 04/13/25 14:28 Oxygen Delivery Room Air 04/13/25 10:54 Medical Decision Making MDM Narrative Medical decision making narrative: Differential diagnosis includes dehydration, electrolyte abnormality, intra-abdominal infection, bowel obstruction, UTI, sepsis Laboratory studies were obtained on the patient showed a white count of 7.2 hemoglobin was 11.6 electrolytes were within normal limits BUN was 7 creatinine was 0.59 lactic acid was 1.9 magnesium was 2.1 AST was 45 and ALT was 21 bilirubin was normal troponin was negative lipase was normal procalcitonin 0.1 urinalysis showed a specific gravity 1.0033 no ketones no evidence of infection. Patient was negative for COVID flu and RSV chest x-ray showed no focal infiltrate CT scan of the abdomen pelvis showed no acute abnormality Vital Signs Vital Signs: Vital Signs Temperature 36.4 C 04/13/25 10:54 Pulse Rate 71 04/13/25 10:54 Respiratory Rate 20 04/13/25 10:54 Blood Pressure 159/73 H 04/13/25 10:54 Pulse Oximetry 99 04/13/25 10:54 Oxygen Delivery Room Air 04/13/25 10:54 Temperature 37.0 C 04/13/25 11:29 Pulse Rate 70 04/13/25 14:28 Respiratory Rate 19 04/13/25 14:28 Blood Pressure 118/60 04/13/25 14:28 Pulse Oximetry 99 04/13/25 14:28 Oxygen Delivery Room Air 04/13/25 10:54 Lab Data 04/13/25 11:23 04/13/25 11:23 Labs: Lab Results 04/13/25 04/13/25 04/13/25 Range/Units 11:23 11:50 12:07 WBC 7.2 (4.5-10.0) K/mm3 RBC 3.62 L (4.2-5.4) M/mm3 Hgb 11.6 L (12.0-15.0) g/dL Hct 35.6 L (37.0-47.0) % MCV 98.3 (80-100) fl MCH 32.0 (26-34) pg MCHC 32.6 (32-36) g/dl RDW 12.2 (11.5-14.5) % Plt Count 290 (150-375) k/mm3 MPV 9.7 (7.4-10.4) fl Immature Gran % (Auto) 0.6 H (0-0.5) % Neut % (Auto) 79.8 H (45.5-73.1) % Lymph % (Auto) 11.0 L (18.3-44.2) % [place] % (Auto) 8.1 (2.6-8.5) % Eos % (Auto) 0.4 (0-4.4) % Baso % (Auto) 0.1 L (0.2-1.2) % Lymph # (Auto) 0.79 L (0.9-3.2) K/mm3 [place] # (Auto) 0.6 (0.1-0.6) K/mm3 Eos # (Auto) 0.0 (0-0.3) K/mm3 Baso # (Auto) 0.0 (0.0-0.1) K/mm3 Abs Immat Gran (auto) 0.04 H (0.00-0.031) K/mm3 Absolute Neuts (auto) 5.7 (1.3-6.7) K/mm3 Absolute Nucleated RBC 0.000 (0.0-0.012) K/mm3 Nucleated RBC % 0.0 (0.0-0.2) % Sodium 137 (137-145) mmol/L Potassium 3.6 (3.4-5.0) mmol/L Chloride 104 (98-107) mmol/L Carbon Dioxide 24 (22-30) mmol/L Anion Gap 9 (4-12) mmol/L BUN 7 D (7-17) mg/dL Creatinine 0.59 L (0.7-1.0) mg/dL Estim Creat Clear Calc 74 ml/min Estimated GFR > 60 (59 - ) Glucose 107 (65-110) mg/dL Lactic Acid 1.9 (0.7-2.0) mmol/L Calcium 9.5 (8.4-10.2) mg/dL Magnesium 2.1 (1.6-2.3) mg/dL Total Bilirubin 0.5 (0.2-1.3) mg/dL AST 45 H (14-36) U/L ALT 21 (6-35) U/L Alkaline Phosphatase 93 (38-126) U/L Troponin I < 0.012 (0.000-0.034) ng/mL Total Protein 7.0 (6.3-8.2) g/dL Albumin 4.1 (3.5-5.1) g/dL Lipase 69 (23-300) U/L Procalcitonin 0.1 ng/mL Urine Color Yellow (Yellow) Urine Appearance Clear (Clear) Urine pH 6.5 (5.0-9.0) Ur Specific [place] 1.003 (1.001-1.035) Urine Protein Negative (Negative) mg/dL Urine Glucose (UA) Negative (Negative) mg/dL Urine Ketones Negative (Negative) mg/dL Ur Blood (Man) Negative (Negative) Urine Nitrate Negative (Negative) Urine Bilirubin Negative (Negative) Urine Urobilinogen 0.2 (<2.0) mg/dL Leukocyte Esterase Rfl Negative (Negative) MARY JO/UL Influenza A (RT-PCR) Negative (Negative) Influenza B (RT-PCR) Negative (Negative) RSV (RT-PCR) Negative (Negative) SARS-CoV-2 RNA (RT-PCR) Negative (Negative) Discharge Plan Discharge Clinical Impression: Generalized weakness, Nausea, Breast cancer metastasized to bone Patient Disposition: Home Condition: Stable Instructions: Antibiotic Form, Acute Nausea and Vomiting (ED), Weakness (ED) Additional Instructions: please follow-up with your managing physicians. If your symptoms worsen please return to the emergency department Patient Language: [place] Prescriptions: New ondansetron 4 mg tablet,disintegrating 4 mg PO Q8H PRN (Reason: nausea and vomiting) Qty: 10 0RF No Action tizanidine 2 mg tablet 2 mg PO HS simvastatin 10 mg tablet 10 mg PO DAILY colestipol 1 gram tablet 1 g PO DAILY cetirizine 10 mg PO DAILY Flonase 1 spray EACH NARE DAILY famotidine [Acid Controller] 20 mg tablet 20 mg PO BID multivitamin [Daily Multi-Vitamin] Tablet 1 tablet PO DAILY calcium carbonate-vitamin D3 [Calcium 600 + D(3)] 600 mg-5 mcg (200 unit) capsule 1 cap PO QPM Follow-up/Referrals: UNKNOWN,DOCTOR [Primary Care Provider] Time of Disposition: 14:36
[2025-04-13] MEDS: ONDANSETRON INJ 4 MG/2 ML VIAL IV PUSH (11:27)
[2025-04-13] MEDS: SODIUM CHLORIDE 0.9% IV 1,000 ML 999 ML IV CONT (11:27)
[2025-04-13 11:28] VITALS: PULSE 64
[2025-04-13 11:29] VITALS: BP 153/81; PULSE 66; RESP 12; TEMP 37; O2SAT 100
[2025-04-13 11:32] LABS: Hematocrit 35.6 % (37.0-47.0); Hemoglobin 11.6 g/dL (12.0-15.0); Immature Granulocyte Percent A 0.6 % (0-0.5); Lymphocytes Absolute Auto 0.79 K/mm3 (0.9-3.2); Mean Corpuscular HGB Conc 32.6 g/dl (32-36); Mean Corpuscular Hemoglobin 32.0 pg (26-34); Mean Corpuscular Volume 98.3 fl (80-100); Nucleated Red Blood Cells Absolute Auto 0.000 K/mm3 (0.0-0.012); Nucleated Red Blood Cells Perc 0.0 % (0.0-0.2); Platelet Count Result 290 k/mm3 (150-375); Red Blood Count 3.62 M/mm3 (4.2-5.4); White Blood Count 7.2 K/mm3 (4.5-10.0)
[2025-04-13 11:47] LABS: Alanine Aminotransferase 21 U/L (6-35); Albumin Level 4.1 g/dL (3.5-5.1); Alkaline Phosphatase 93 U/L (38-126); Anion Gap 9 mmol/L (4-12); Aspartate Amino Transferase 45 U/L (14-36); Bilirubin,Total 0.5 mg/dL (0.2-1.3); Blood Urea Nitrogen 7 mg/dL (7-17); Calcium 9.5 mg/dL (8.4-10.2); Carbon Dioxide 24 mmol/L (22-30); Chloride 104 mmol/L (98-107); Estimated CRCL calculation 74 ml/min; Estimated Glomerular Filt Rate > 60; Glucose 107 mg/dL (65-110); Lipase 69 U/L (23-300); Magnesium 2.1 mg/dL (1.6-2.3); Potassium 3.6 mmol/L (3.4-5.0); Sodium 137 mmol/L (137-145); Total Protein 7.0 g/dL (6.3-8.2)
[2025-04-13 11:58] LABS: Troponin I < 0.012 ng/mL (0.000-0.034)
[2025-04-13 12:02] LABS: Add Urine Microscopic? NO; Appearance Urine Clear (Clear); Glucose Urine UA Negative (Negative); Leukocyte Esterase Ur Negative LEU/UL (Negative); Nitrate Urine Negative (Negative); Specific Grav Ur 1.003 (1.001-1.035)
[2025-04-13 12:04] LABS: Procalcitonin 0.1 ng/mL
[2025-04-13 12:05] VITALS: BP 147/66; PULSE 78; RESP 12; O2SAT 97
[2025-04-13 12:50] LABS: Influenza A QL RT-PCR Negative (Negative); Influenza B QL RT-PCR Negative (Negative); RSV RNA, RT-PCR Negative (Negative); SARS-CoV-2 RNA PCR Negative (Negative)
[2025-04-13 14:28] VITALS: BP 118/60; PULSE 70; RESP 19; O2SAT 99
== END 2025-04-13 14:58 | disposition home or self-care (01) ==
PROVIDERS: Emergency Provider Emergency Medicine
DX: R53.1 Weakness (principal); R11.0 Nausea; C50.919 Malignant neoplasm of unspecified site of unspecified female breast; C79.51 Secondary malignant neoplasm of bone; Z87.891 Personal history of nicotine dependence; Z20.822 Contact with and (suspected) exposure to COVID-19
CPT/HCPCS: 36415; 71045; 74177; 80053; 81003; 83605; 83690; 83735; 84145; 84484; 85025; 87637; 93005; 96361; 96374; 99284; J2405; J7030; Q9967

== ENCOUNTER 2025-04-16 03:07 | Day surgery (SDC) | payer OTHER, SELFPAY ==
[2025-04-10 12:39] VITALS: BMI 23.7
--- NOTE | 2025-04-10 12:40 | SUR.PREOP ---
[facility] has started construction of its new state of the art ER which will open Spring 2026. With this, we anticipate parking may be a challenge for some our surgical patients and families. Parking spaces are limited but are available for all Surgical, obstetrics, and ER patients sharing this lot. If you arrive and find you are having a hard time finding a parking space, please note that we understand the challenges, please drive around the hospital and park near Hospital Entrance 1. When you enter this entrance, you can ask a volunteer to direct or take you back to the surgical waiting area to check in. We appreciate everyone?s understanding of these expected challenges while we build for your future. Report to the Outpatient Waiting Room, entrance under the green pavilion located off [address], at time __11am on date _04/16/25 . Planned Procedure Time: _1pm__.? Time changes happen often and if your time is changed the preop area will call you the afternoon before. - You and your visitor will be asked to self-screen and do not enter if you have any COVID symptoms. Please call surgeon if you need to reschedule. - A mask is optional within the hospital at this time. Patients may have clear liquids (water, carbonated beverages, clear teas, apple juice) until 3 hours prior to surgery with a maximum of 20 ounces. - No food from midnight until time of surgery and no smoking, or chewing tobacco (or any form of nicotine). No chewing gum, candy or mints. Take only the following medications with a SIP of water on the morning of surgery: ____None DO NOT STOP ANY OF YOUR OTHER PRESCRIPTION MEDICATIONS PRIOR TO SURGERY EXCEPT THE FOLLOWING Hold all vitamins and supplements for 3 days per anesthesiologist. Medications to discontinue per physician None Date to take last dose of vitamins___04/12/25 Please no make-up, nail belarusian, hairspray, perfume, deodorant, or body powder the day of surgery.? No jewelry (including any body piercings) or valuables the day of surgery, leave them at home.? Please take a shower or bath the night before, or the morning of, surgery with an antibacterial soap.? Wear comfortable, loose fitting clothing.? Children are encouraged to wear pajamas. - Jewelry must be removed prior to entering the operating room.? Rings and piercings that are not removed may be cut off. - The hospital will not accept responsibility for valuables.? - Please leave all valuables, including medications, at home the day of surgery. If you are going home after surgery, a licensed sweeper driver must drive you home.? - NO public transportation without another adult if you receive anesthesia. - We recommend that an adult stay with you for 24 hours following discharge. - We also recommend that you do not drive, make important decision, drink alcoholic beverages, or take any drugs that were not prescribed by your health care provider for at least 24 hours after your discharge time. For Pediatric surgeries, we recommend two adults accompany the child home. Follow any additional instructions given to you from your surgeon. Telephone instructions given to __Ariadne and asked if any additional questions and then verbalized understanding. Patient advised to call surgeon office or pre surgery nurse liaison [phone] if any additional questions.
--- NOTE | ~2025-04-16 | XR_ITS ---
EXAMINATION: XR fl guide central line place DATE: 04/16/2025 13:04 INDICATION: Mediport placement TECHNIQUE: 2 fluoroscopic images of the central mid to upper chest were obtained during procedure performed by Dr. Hobbs. Radiologist was not present for the imaging or procedure. The amount of fluoroscopy time used during this procedure was 0.1 minutes. Total DAP was 0.238 Gycm^2. COMPARISON: 04/13/2025 FINDINGS/IMPRESSION: Interval placement of a right internal jugular central venous port catheter with distal tip at the level of the midsuperior vena cava. Visualized portions of the lungs remain clear. See procedure note for further detail. Reviewed, dictated and finalized at location A.
--- NOTE | ~2025-04-16 | XR_ITS ---
Examination: XR chest port-a-cath/central Clinical History: MEDIPORT PLACEMENT Comparison: 04/13/2025 Technique: Portable AP Findings: Right neck permacath with catheter tip upper SVC. Heart size normal. Streaky retrocardiac opacity. Bony metastases poorly seen on plain film. IMPRESSION: 1. Right permacath with tip in upper SVC. 2. No pneumothorax. 3. Retrocardiac atelectasis and/or airspace disease. Reviewed, dictated and finalized at location R.
--- NOTE | 2025-04-16 10:44 | WPDHPUPDATE1 ---
History and Physical Update Update Date/Time: 04/16/25 10:44 - Mediport placement using ultrasound and fluoroscopy guidance. History and Physical has been reviewed, including an updated exam of the patient. There are NO changes in the patient's condition. Risks, benefits, and alternatives have been discussed and questions answered. Patient agrees to proceed with procedure.
[2025-04-16 11:10] VITALS: BP 123/73; PULSE 80; RESP 16; TEMP 36.1; O2SAT 98
[2025-04-16] MEDS: LACTATED RINGERS 1,000 ML 30 ML IV CONT (11:35)
--- NOTE | 2025-04-16 11:44 | WPDANESEPPF ---
Anes - Initial Pre Proc Eval Procedure: Operation Date: 04/16/25 13:00 Proposed Procedures p Mediport Placement Under Ultrasound and Fluoroscopy Guidance - Krys Hobbs MD Date/Time: 04/16/25 11:44 Surgeon: Krys Hobbs MD Pre Op Diagnosis: malignant neoplasm of breast Patient Data Age: 60 Gender: F Height: 1.63 m Weight: 62.3 kg Last Vital Signs Temp 36.1 C L 04/16/25 11:10 Pulse 80 04/16/25 11:10 Resp 16 04/16/25 11:10 BP 123/73 04/16/25 11:10 Pulse Ox 98 04/16/25 11:10 O2 Del Method Room Air 04/16/25 11:10 Allergies Allergy/AdvReac Type Severity Reaction Status Date / Time shellfish derived Allergy Severe Unknown Verified 04/16/25 11:17 cat dander Allergy Mild Hives Verified 04/16/25 11:17 clarithromycin (From Biaxin) Allergy Unknown Unknown Verified 04/16/25 11:17 metronidazole Allergy Unknown Unknown Verified 04/16/25 11:17 Sulfa (Sulfonamide Allergy Unknown Unknown Verified 04/16/25 11:17 Antibiotics) cefazolin AdvReac Severe Hives Verified 04/16/25 11:17 Flu Vaccine Allergy Mild Hives Uncoded 04/01/25 08:51 Home Medications ?Medication ?Instructions ?Recorded ?Confirmed ?Type Flonase 1 spray EACH NARE DAILY allergies 02/22/25 04/10/25 History cetirizine 10 mg PO DAILY 02/22/25 04/16/25 History colestipol 1 gram tablet 1 g PO DAILY 02/22/25 04/16/25 History famotidine 20 mg tablet (Acid 20 mg PO BID 02/22/25 04/16/25 History Controller) simvastatin 10 mg tablet 10 mg PO DAILY 02/22/25 04/16/25 History tizanidine 2 mg tablet 2 mg PO HS 02/22/25 04/16/25 History multivitamin (Daily Multi-Vitamin 1 tablet PO DAILY 03/06/25 04/16/25 History tablet) calcium 600 mg (as 1 cap PO QPM 04/11/25 04/16/25 History carbonate)-vitamin D3 5 mcg (200 unit) capsule (Calcium 600 + D(3)) ondansetron 4 mg disintegrating 4 mg PO Q8H PRN nausea and 04/13/25 04/16/25 Rx tablet vomiting #10 tabs oxycodone 5 mg capsule 5 mg PO Q8H PRN pain #30 caps 04/15/25 04/16/25 Rx Patient hx anesthesia problems: none Family hx anesthesia problems: none Results Review: All pre-operative results and documents have been reviewed as part of the pre-operative evaluation. [facility] Past Medical History Medical History Bone spur Bursitis Surgical History Surgical History History of arthroscopic surgery of shoulder Family History Family History Mother Family history non-contributory Grandparent Cerebrovascular accident Social History Social History Smoking packs per day: 0.25 Smoking cigarettes per day: 5.0 Years smoked: 1 Smoking pack-years: 0.25 Smoking status: Former smoker Tobacco type: cigarettes Smoking end date: 07/03/21 Alcohol intake: current Substance use: current Substance use type: marijuana Other substance usage details: medical mariguana Do You Feel Safe in your Home?: Yes Lack of Transportation: No Lack of Food: Never True Current Housing: I Have Housing Concerned About Future Housing: No Difficulty Paying Gas/Electric Bills: No Difficulty Paying for Meds: No Currently Unemployed: No Education: Bachelor's Degree Difficulty w/ Childcare or Family Care: No Living arrangements: with family 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 Informed Consent: The patient's anesthetic plan and its attendant risks and benefits were discussed with the patient/family/POA. Questions were solicited and answers provided to the satisfaction of the patient/family/POA.
[2025-04-16] MEDS: CLINDAMYCIN 900 MG/D5W 50 ML 900 MG/50 ML PIGGYBACK 50 MG IVPB (11:51)
[2025-04-16] MEDS: HEPARIN SODIUM, PORCINE 10,000 UNITS/10 ML VIAL 3 UNITS IV PUSH (12:26)
[2025-04-16 13:03] VITALS: BP 124/52; PULSE 69; RESP 14; TEMP 36.4; O2SAT 97
--- NOTE | 2025-04-16 13:03 | W.PM.PROC2 ---
Procedure Note - Detailed Date of Procedure 04/16/25 Pre-op Diagnosis Stage IV right breast cancer Post-op Diagnosis Same Procedure Performed Right internal jugular mediport placement using fluoroscopy and ultrasound guidance. Surgeon Krys Hobbs MD Anesthesia MAC Description of Procedure Patient was identified in the preoperative holding area brought to the operating room suite. She was laid supine in the OR table sequential compression devices were applied. Anesthesia was induced without difficulty. The right neck and upper chest were prepped and draped in a sterile fashion. Ultrasound was used to identify the internal jugular vein and a small incision was made overlying this area. Local anesthetic was infiltrated in the subcutaneous tissue and a needle was then slowly advanced under ultrasound guidance into the lumen of the internal jugular vein. Once dark venous blood was aspirated the syringe was removed and a guidewire was introduced into the internal jugular vein. Fluoroscopy images were obtained to verify the position of the wire going down into the superior vena cava. Once this was confirmed a small pocket was made by making a small incision with a 15 blade in the left upper chest. Dissection was carried down through the subcutaneous tissue and a small pocket was created for the future port. Hemostasis was assured. I then proceed to tunnel the catheter from this pocket to the neck after injecting local anesthetic in the subcutaneous tissue of the neck. Fluoroscopy images were obtained to measure the length of the catheter with the tip just above the cavoatrial junction. The catheter was then cut distally at approximately 20 cm and connected to port. The port was then flushed with saline. An introducer with the peel-away sheath was then introduced into internal jugular vein under fluoroscopy guidance using the previously placed wire. The wire was removed as well as the introducer leaving the peel-away sheath. The catheter was then introduced into the IJ via the peel-away sheath which was slowly removed. Once the catheter was in good position, I was able to aspirate dark venous blood and easily flushed the port using the merino needle. A x-ray picture was taking to ensure there is no kinks throughout the catheter and the catheter tip was in good position at the superior aspect of the cavoatrial junction. Once this was performed the port was then secured to pectoralis fascia using interrupted silk sutures and placed into the subcutaneous pocket. The port was again aspirated and flushed with heparinized saline. The deep dermal layer was closed with interrupted Vicryl and the skin was closed with 4-0 Monocryl in a subcuticular fashion. The small incision in the neck was closed with a single interrupted Monocryl suture. Dermabond was applied to all the incisions. Patient was then awoken from anesthesia taken to the recovery area stable condition. All needles, instruments, and sponge counts were correct as reported by the operating room staff. Patient tolerated the procedure well with no immediate complications. Estimated Blood Loss 5 Complications No immediate complications Condition Stable Disposition PACU [facility] Billing Surgery - Charge Forward: Surgery Billing (CPT 35279, 27010)
[2025-04-16 13:30] VITALS: BP 144/63; PULSE 65
[2025-04-16 14:00] VITALS: BP 165/66; PULSE 72
== END 2025-04-16 14:05 | disposition home or self-care (01) ==
PROVIDERS: Visit Provider Surgery
PROC: (CPT 36561; principal; 2025-04-16 13:00)
DX: C50.911 Malignant neoplasm of unspecified site of right female breast (principal); F12.90 Cannabis use, unspecified, uncomplicated; Z79.891 Long term (current) use of opiate analgesic; Z98.890 Other specified postprocedural states; Z87.891 Personal history of nicotine dependence
CPT/HCPCS: 36561; 77001; C1788; J1644; J2250; J2704; J3010; J7030; J7120

== ENCOUNTER 2025-05-10 10:06 | Emergency (ER) | payer OTHER, SELFPAY ==
[2025-05-10 10:24] VITALS: BP 151/87; PULSE 87; RESP 17; TEMP 36.8; O2SAT 100
--- OUTSIDE RECORDS SUMMARY | 2025-05-10 10:42 | XMS_ITS | Clinical Summary ---
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 90 Tablet 3 5 Active ondansetron (ZOFRAN) 8 mg Tablet Take 1 Tablet (8 mg) by mouth every 8 hours as needed for Nausea/Emesis. 30 Tablet 2 5 Active traMADol (ULTRAM) 50 mg tabletIndicatio ns:Carcinoma of right breast metastatic to bone (CMS/HCC) Take 1 Tablet (50 mg) by mouth every 8 hours as needed for Pain. 60 Tablet 5 Active lidocaine-prilo tereza (EMLA) 2.5-2.5 % Cream Apply a quarter size amount to port site 30 minutes prior to access. 30 Gram 1 5 Active dexAMETHasone (DECADRON) 4 mg tablet Take 2 Tablets (8 mg) by mouth 2 times daily day before, day of, day after treatment with Docetaxel. 12 Tablet 5 5 Active Active Problems Problem Noted Date Diagnosed Date Carcinoma of right breast metastatic to bone 10/2024 History of colon polyps 08/08/2023 Gastroesophageal reflux dise ase with esophagitis without hemorrhage 05/30/2023 Irritable bowel syndrome with diarrhea 3 Resolved Problems Problem Noted Date Diagnosed Date Resolved Date Chronic diarrhea 11/15/2022 05/30/2023 RUQ abdominal pain 11/15/2022 3 Encounters Date Type Department Care Team Description 05/07/2025 Orders Only [facility] Oncology and Hematology - [place] [address] Jovani Weeks MD 05/06/2025 Orders Only [facility] Oncology and Hematology [facility] [address] Sh[address] [place] [phone] Jovani Weeks MD Carcinoma of right breast metastatic to bone (CMS/HCC) (Primary Dx) 05/02/2025 Refill [facility] Oncology and Hematology [facility] [address] [place] [address] Jovani Weeks MD 04/24/2025 Abstract [facility] Oncology and Hematology [facility] [address] [place] [phone] Jovani Weeks MD 04/23/2025 External Device Data STL ABSTRACTION Provider, Abstract 04/21/2025 9:30 AM CDT Office Visit [facility] Oncology and Hematology [facility] [address] [place] [phone] Jovani Weeks MD Carcinoma of right breast metastatic to bone (CMS/HCC) (Primary Dx) 04/14/2025 Orders Only [facility] Oncology and Hematology [facility] Priscila Capellan [address] [place] [address] Jovani Weeks MD Carcinoma of right breast metastatic to bone (CMS/HCC) (Primary Dx) 04/08/2025 External Device Data STL ABSTRACTION Provider, Abstract 04/08/2025 Orders Only [facility] Oncology and Hematology [facility] Priscila [address]ell[address] [place] [address] Jovani Weeks MD 03/27/2025 1:00 PM CDT Office Visit [facility] Oncology [facility] Hematology [facility] Priscila [address]ell[address] [place] [address] Jovani Weeks MD Carcinoma of right breast metastatic to bone ([facility]/HCC) (Primary Dx) 03/27/2025 Orders Only [facility] Oncology and Hematology [facility] Priscila [address]ellan [address] [place] [address] Jovani Weeks MD 03/17/2025 1:05 PM CDT - 03/17/2025 11:59 PM CDT Hospital Encounter [facility] [address] [address] Juli Jean MD Discharge Disposition: Home or Self Care 03/12/2025 Abstract [facility] Oncology and Hematology [facility] Priscila [address]ellan [address] [place] [address] Jovani Weeks MD 03/12/2025 Orders Only [facility] Oncology and Hematology [facility] Priscila [address]ellan [address] [place] [address] Juli Jean MD Carcinoma of right breast metastatic to bone (CMS/HCC) (Primary Dx) 03/11/2025 External Device Data STL ABSTRACTION Provider, Abstract 03/11/2025 External Device Data STL ABSTRACTION Provider, Abstract 03/11/2025 External Device Data STL ABSTRACTION Provider, Abstract 03/06/2025 12:30 PM CDT Office Visit [facility] Oncology and Hematology [facility] [address] [facility] [address] [place] [address] Juli Jean MD Carcinoma of right breast metastatic to bone (CMS/HCC) (Primary Dx) 02/11/2025 9:00 AM CDT Office Visit [facility] Gastroenterology [facility] [address] [facility] [address] [place] [phone] Amy York MD Irritable bowel syndrome with diarrhea (Primary Dx); Gastroesophageal reflux disease with esophagitis without hemorrhage; History of colon polyps from Last 3 Months Family History Medical [...] on file 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 Gender Identity Not on file Sexual Orientation Not on file Last Filed Vital Signs Vital Sign Reading Time Taken Comments Blood Pressure 158/74 04/21/2025 9:47 AM CDT Pulse 70 04/21/2025 9:47 AM CDT Temperature 36.7 C (98.1 F) 04/21/2025 9:47 AM CDT Respiratory Rate 12 04/21/2025 9:47 AM CDT Oxygen Saturation 97% 04/21/2025 9:47 AM CDT Inhaled Oxygen Concentration - - Weight 61.8 kg (136 lb 3.2 oz) 04/21/2025 9:47 A M CDT Height 162.6 cm (5' 4) 03/06/2025 12:10 PM CDT Body Mass Index 23.38 03/06/2025 12:10 PM CDT Plan of Treatment Upcoming Encounters Date Type Department Care Team (Late st Contact Info) Description 05/26/2025 9:00 AM HAZARDOUS WASTE TECHNICIAN Office Visit [facility] Oncology and Hematology [facility] [address] [facility] [address] [place] [phone] Jovani Weeks MD [address] [facility] [address] [place] [address] 06/24/2025 11:20 AM HAZARDOUS WASTE TECHNICIAN Office Visit [facility] Internal Medicine - [facility] [address] [place] [address] Leoncio Cherry MD [address] [place] [address] 02/17/2026 8:20 AM CDT Office Visit [facility] Gastroenterology [facility] [address] [facility] [address] [place] [address] Amy York MD [address] [facility] [address] [place] [address] Health Maintenance Due Date Last Done Comments DTAP/TDAP/TD VACCINES (1 - Tdap) 01/27/1984 ZOSTER VACCINE (1 of 2) 01/27/1984 HPV/Cotest (21-29) 1986 CERVICAL CANCER SCREENING 1995 HPV/Cotest (30-65) 1995 PAP SMEAR 1995 FIT-DNA Q 3 years 2010 FIT/FOBT Q 1 year 2010 Flex Sig/CT Colonography Q 5 years 2010 RSV VACCINE (60+ or ) (1 - Risk 50-74 years 1-dose series) 2015 BREAST CANCER SCREENING 03/02/2016 03/02/2015, 02/09 INFLUENZA VACCINE (#1) 2025 COVID-19 Vaccine ( season) 2025 01/28/2022, 04/29/2021, 10/26/2020 COLORECTAL SCREENING 01/31/2027 02/01/2024, 02/01/2024, 01/19/2023, Additional history exists Colorectal Cancer Screening 01/31/2027 HEPATITIS B VACCINES Aged Out No long er eligible based on patient's age to complete this topic Procedures Procedure Name Priority Date/Time Associated Diagnosis Comments CBC WITH AUTODIFFERENTIAL Routine 05/05/2025 4:08 PM HAZARDOUS WASTE TECHNICIAN [facility] Routine 04/05/2025 8:51 AM CDT Carcinoma of right breast metastatic to bone (CMS/HCC) ECHO COMPLETE Routine 04/04/2025 12:17 PM CDT [facility] DNA AND RNA Routine 03/27/2025 3:21 PM CDT Carcinoma of right breast metastatic to bone (CMS/HCC) [facility] NORMAL BLOOD Routine 3:21 PM CDT Carcinoma of right breast metastatic to bone (CMS/HCC) [facility] DNA AND RNA SOLID TUMOR Routine 03/27/2025 3:21 PM CDT Carcinoma of [...] Recently Relevant to Health Maintenance Results * CBC WITH AUTODIFFERENTIAL (05/05/2025 4:08 PM HAZARDOUS WASTE TECHNICIAN) Blood us Jovani Weeks MD HEMATOLOGY ORDERABLES Final Res ult * [facility] (04/05/2025 8:51 AM CDT) Reason for Study To identify mutation s relevant to patient's cancer. 04/05/2025 8:51 AM CDT [facility] Genetic Diseases Assessed Cancer 04/05/2025 8:51 AM CDT [facility] Description of Ranges of DNA Sequences Examined 105 gene liquid biopsy 8:51 AM CDT [facility] Overall Interpretation positive 04/05/2025 8:51 AM CDT [facility] [email or web address] ta [email or web address] 04/05/2025 8:51 AM CDT [facility] Comment:[facility] link Low Coverage Regions SPOP 04/05/2025 8:51 AM CDT [facility] Therapy Count 4 04/05/2025 8:51 AM CDT [facility]: Potential Therapy 1 Gene: 8975^PIK3CA^HGNC Variant: p.[id number] Match Type: snvIndel Match Type Description: PIK3CA p.B5796P Agent: Alpelisib + Fulvestrant Drug Class: Combination (PI3K Inhibitor + Estrogen Receptor Antagonist) Tissue: Breast Cancer Association: Response Evidence Status: Consensus Evidence ID: NCCN KDB Variant: [id number] - GOF Label: FDA Off Label FDA Approved?: Yes On label?: No 04/05/2025 8:51 AM CDT [facility]: Potential Therapy 2 Gene: 8975^PIK3CA^HGNC Variant: p.[id number] Match Type: snvIndel Match Type Description: PIK3CA p.Q1704K Agent: Capivasertib + Fulvestrant Drug Class: Combination (Muse-AKT Inhibitor + Estrogen Receptor Antagonist) Tissue: Breast Cancer Association: Response Evidence Status: Consensus Evidence ID: NCCN KDB Variant: [id number] - GOF Label: FDA Off Label FDA Approved?: Yes On label?: No 04/05/2025 8:51 AM CDT [facility] Tempus: Potential Therapy 3 Gene: 8975^PIK3CA^HGNC Variant: p.[id number] Match Type: snvIndel Match Type Description: PIK3CA p.U7523L Agent: Inavolisib + Fulvestrant + Palbociclib Drug Class: Combination (PI3K Inhibitor + Estrogen Receptor Antagonist + CDK4/6 Inhibitor) Tissue: Breast Cancer Association: Response Evidence Status: Consensus Evidence ID: NCCN KDB Variant: Smpr-df-bifixlxx Label: FDA Off Label FDA Approved?: Yes On label?: No 04/05/2025 8:51 AM CDT [facility] Tempus: Potential Therapy 4 Gene: 8975^PIK3CA^HGNC Variant: p.V4277W Match Type: snvIndel Match Type Description: PIK3CA p.X6989M Agent: Alpelisib Drug Class: PI3K Inhibitor Tissue: Solid Tumors Association: Response Evidence Status: Clinical research Evidence ID: [id number] Evidence URL: https://www.ncbi.nlm.n ih.gov/pubmed/70396784 Evidence Title: Phosphatidylinositol 3-Kinase -Selective Inhibition With Alpelisib (QNM764) in PMZ6FQ-Fvladgl Solid Tumors: Results From the Pgubt-gl-Gmask Study - PubMed KDB Variant: Ckjg-zx-wztzwvru Label: FDA Off Label FDA Approved?: Yes On label?: No 04/05/2025 8:51 AM CDT [facility] Trial Count 3 04/05/2025 8:51 AM CDT [facility]: Clinical Trial Match 1 Clinical Trial NCT ID: [id number] Clinical Trial Title: Iypmg-np-Slgxo Study of Mutant-selective PI3K Inhibitor, RLY-2608, as a Single Agent in Patients With Advanced Solid Tumors and in Combination With Endocrine Therapy +/- a CDK4/6 or CDK4 Inhibitor in Patients With Advanced Solid Tumors or Advanced Breast Cancer Clinical Trial URL: https://clinicaltrials .gov/ct2/show/AWW77130 432 Clinical Phase: Phase 1 Clinical Trial Matches: PIK3CA p.W7111D mutation Clinical Trial Distance and Location: [address] [place] [address] 04/05/2025 8:51 AM CDT [facility]: Clinical Trial Match 2 Clinical Trial NCT ID: [id number] Clinical Trial Title: [id number] in Participants With Advanced Solid Tumors Clinical Trial URL: https://clinicaltrials .gov/ct2/show/YIA15278 704 Clinical Phase: Phase 1 Clinical Trial Matches: PIK3CA p.H2230R mutation Clinical Trial Distance and Location: [address], [place], [place] 04/05/2025 8:51 AM CDT [facility]: Clinical Trial Match 3 Clinical Trial NCT ID: [id number] Clinical Trial Title: A Oycjt-Jx-Sldpn, Phase 1 Study Evaluating Oral TACC3 PPI Inhibitor, AO-252, in Advanced Solid Tumors With or Without Brain Metastases Clinical Trial URL: https://clinicaltrials .gov/ct2/show/EXV56813 884 Clinical Phase: Phase 1 Clinical Trial Matches: 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 04/05/2025 8:51 AM CDT [facility] Blood specimen (specimen) 03/29/2025 5:57 PM CDT Narrative This result has genomic variants that were not included in this document. us Jovani Weeks MD MOLECULAR ORDERABLES Final Resu lt [facility] [address] [facility], [address] [place] [address], [facility] [address] [facility], [address] [place] [address] * ECHO COMPLETE (04/04/2025 12:17 PM CDT) us Jovani Weeks MD ECHO ORDERABLES Final Result * [facility] NORMAL BLOOD (03/27/2025 3:21 PM CDT) Pathologist [facility] 03/27/2025 11:00 PM CDT [facility] Comment:See NGS Report for R esults. Blood specimen (specimen) 03/27/2025 3:21 PM CDT 03/27/2025 3:23 PM CDT us Jovani Weeks MD MOLECULAR ORDERABLES Final Resu lt [facility] [address], [address] [place] [address], [facility] [address] [place] [address] * [facility] DNA AND RNA SOLID TUMOR (03/27/2025 3:21 PM CDT) Reason for Study To identify somatic and germline mutations relevant to patient's cancer. 5 10:05 AM CDT [facility] Genetic Diseases Assessed Cancer 5 10:05 AM CDT [facility] Description of Ranges of DNA Sequences Examined 648 gene panel 5 10:05 AM CDT [facility] Overall Interpretation positive 5 10:05 AM CDT [facility] MSI Stable 5 10:05 AM CDT [facility] TMB 1.1 m/MB 5 10:05 AM CDT [facility] [email or web address] t [email or web address] 5 10:05 AM CDT [facility] Comment:[facility] link PD-L1 Interpretation by 22C3 negative 5 10:05 AM CDT [facility] PD-L1 (22C3) Combined Positive Score 3 5 10:05 AM CDT [facility] PD-L1 (22C3) Tumor Proportion Score 1 % 5 10:05 AM CDT [facility] Pertinent Negatives ESR1 04/10 5 10:05 AM CDT [facility] Low Coverage Regions KDM5D 10 5 10:05 AM CDT [facility] Therapy Count 14 5 10:05 AM CDT [facility]: Potential Therapy 1 Gene: 3430^ERBB2^HGNC Variant: ERBB2 Copy number gain Match Type: cnv Match Type Description: ERBB2 Copy number gain Agent: Ado-Trastuzumab Emtansine Drug Class: Anti-HER2 MAb Tissue: Breast Cancer Association: Response Evidence Status: Consensus Evidence ID: NCCN NCCN Associated Evidence: Consensus, Breast Cancer MSK Associated Evidence: MSK OncoKB, Level 1 Label: FDA On Label FDA Approved?: Yes On label?: Yes 5 10:05 AM CDT [facility]: Potential Therapy 2 Gene: 3430^ERBB2^HGNC Variant: ERBB2 Copy number gain Match Type: cnv Match Type Description: ERBB2 Copy number gain Agent: Margetuximab-cmkb Drug Class: Anti-HER2 MAb Tissue: Breast Cancer Association: Response Evidence Status: Consensus Evidence ID: NCCN NCCN Associated Evidence: Consensus, Breast Cancer MSK Associated Evidence: MSK OncoKB, Level 1 Label: FDA On Label FDA Approved?: Yes On label?: Yes 10:05 AM CDT [facility] Tempus: Potential Therapy 3 Gene: 3430^ERBB2^HGNC Variant: ERBB2 Copy number gain Match Type: cnv Match Type Description: ERBB2 Copy number gain Agent: Trastuzumab Drug Class: Anti-HER2 MAb Tissue: Breast Cancer Association: Response Evidence Status: Consensus Evidence ID: NCCN NCCN Associated Evidence: Consensus, Breast Cancer MSK Associated Evidence: MSK OncoKB, Level 1 Label: FDA On Label FDA Approved?: Yes On label?: Yes 5 10:05 AM CDT [facility] Tempus: Potential Therapy 4 Gene: 3430^ERBB2^HGNC Variant: ERBB2 Copy number gain Match Type: cnv Match Type Description: ERBB2 Copy number gain Agent: Capecitabine + Neratinib Drug Class: Combination (Pyrimidine Analog + Muse-HER TKI) Tissue: Breast Cancer Association: Response Evidence Status: Consensus Evidence ID: NCCN NCCN Associated Evidence: Consensus, Breast Cancer MSK Associated Evidence: MSK OncoKB, Level 1 Label: FDA On Label FDA Approved?: Yes On label?: Yes 10:05 AM CDT [facility]: Potential Therapy 5 Gene: 3430^ERBB2^HGNC Variant: ERBB2 Copy number gain Match Type: cnv Match Type Description: ERBB2 Copy number gain Agent: Capecitabine + Trastuzumab + Tucatinib Drug Class: Combination (Pyrimidine Analog + Anti-HER2 MAb + HER2 Inhibitor) Tissue: Breast Cancer Association: Response Evidence Status: Consensus Evidence ID: NCCN NCCN Associated Evidence: Consensus, Breast Cancer MSK Associated Evidence: MSK OncoKB, Level 1 Label: FDA On Label FDA Approved?: Yes On label?: Yes 10:05 AM CDT [facility]: Potential Therapy 6 Gene: 3430^ERBB2^HGNC Variant: ERBB2 Copy number gain Match Type: cnv Match Type Description: ERBB2 Copy number gain Agent: Lapatinib + Capecitabine Drug Class: Combination (Muse-HER TKI + Pyrimidine Analog) Tissue: Breast Cancer Association: Response Evidence Status: Consensus Evidence ID: NCCN NCCN Associated Evidence: Consensus, Breast Cancer MSK Associated Evidence: MSK OncoKB, Level 1 Label: FDA On Label FDA Approved?: Yes On label?: Yes 10:05 AM CDT [facility]: Potential Therapy 7 Gene: 3430^ERBB2^HGNC Variant: ERBB2 Copy number gain Match Type: cnv Match Type Description: ERBB2 Copy number gain Agent: Neratinib Drug Class: Muse-HER TKI Tissue: Breast Cancer Association: Response Evidence Status: Consensus Evidence ID: NCCN NCCN Associated Evidence: Consensus, Breast Cancer MSK Associated Evidence: MSK OncoKB, Level 1 Label: FDA On Label FDA Approved?: Yes On label?: Yes 10:05 AM CDT [facility]: Potential Therapy 8 Gene: 3430^ERBB2^HGNC Variant: ERBB2 Copy number gain Match Type: cnv Match Type Description: ERBB2 Copy number gain Agent: Trastuzumab + Pertuzumab Drug Class: Combination (Anti-HER2 MAbs) Tissue: Breast Cancer Association: Response Evidence Status: Consensus Evidence ID: NCCN NCCN Associated Evidence: Consensus, Breast Cancer MSK Associated Evidence: MSK OncoKB, Level 1 Label: FDA On Label FDA Approved?: Yes On label?: Yes 5 10:05 AM CDT [facility]: Potential Therapy 9 Gene: 8975^PIK3CA^HGNC Variant: p.J0580K Match Type: snvIndel Match Type Description: PIK3CA p.X7292N Agent: Alpelisib + Fulvestrant Drug Class: Combination (PI3K Inhibitor + Estrogen Receptor Antagonist) Tissue: Breast Cancer Association: Response Evidence Status: Consensus Evidence ID: [place] KDB Variant: [id number] - GOF Label: FDA Off Label FDA Approved?: Yes On label?: No 5 10:05 AM CDT [facility]: Potential Therapy 10 Gene: 8975^PIK3CA^HGNC Variant: p.R4643L Match Type: snvIndel Match Type Description: PIK3CA p.F6408W Agent: Capivasertib + Fulvestrant Drug Class: Combination (Muse-AKT Inhibitor + Estrogen Receptor Antagonist) Tissue: Breast Cancer Association: Response Evidence Status: Consensus Evidence ID: CLIFTON KDB Variant: [id number] - GOF Label: FDA Off Label FDA Approved?: Yes On label?: No 5 10:05 AM CDT [facility]: Potential Therapy 11 Gene: 8975^PIK3CA^HGNC Variant: p.M0424B Match Type: snvIndel Match Type Description: PIK3CA p.I7977J Agent: Inavolisib + Fulvestrant + Palbociclib Drug Class: Combination (PI3K Inhibitor + Estrogen Receptor Antagonist + CDK4/6 Inhibitor) Tissue: Breast Cancer Association: Response Evidence Status: Consensus Evidence ID: CLIFT[place] KDB Variant: Oirc-nv-gzasygqo Label: FDA Off Label FDA Approved?: Yes On label?: No 5 10:05 AM CDT [facility]: Potential Therapy 12 Gene: 3430^ERBB2^HGNC Variant: ERBB2 Copy number gain Match Type: cnv Match Type Description: ERBB2 Copy number gain Agent: Trastuzumab + Lapatinib Drug Class: Combination (Anti-HER2 MAb + Muse-HER TKI) Tissue: Breast Cancer Association: Response Evidence Status: Consensus Evidence ID: GURPREETN CLIFTON Associated Evidence: Consensus, Breast Cancer Label: FDA Off Label FDA Approved?: Yes On label?: No 5 10:05 AM CDT [facility]: Potential Therapy 13 Gene: 3430^ERBB2^HGNC Variant: ERBB2 Copy number gain Match Type: cnv Match Type Description: ERBB2 Copy number gain Agent: Trastuzumab Deruxtecan Drug Class: MAb-Drug Conjugate Tissue: Breast Cancer Association: Response Evidence Status: Consensus Evidence ID: NCCN NCCN Associated Evidence: Consensus, Breast Cancer MSK Associated Evidence: MSK OncoKB, Level 1 Label: FDA Off Label FDA Approved?: Yes On label?: No 5 10:05 AM T [facility]: Potential Therapy 14 Gene: 8975^PIK3CA^HGNC Variant: p.K8522B Match Type: snvIndel Match Type Description: PIK3CA p.T0570A Agent: Alpelisib Drug Class: PI3K Inhibitor Tissue: Solid Tumors Association: Response Evidence Status: Clinical research Evidence ID: [id number] Evidence URL: https://www.ncbi.nlm. nih.gov/pubmed/331665 02 Evidence Title: Phosphatidylinositol 3-Kinase -Selective Inhibition With Alpelisib (COI866) in ZMW8KE-Paucygq Solid Tumors: Results From the Tgqjc-mf-Jxqye Study - PubMed KDB Variant: Zctv-ry-ltwkkesc Label: FDA Off Label FDA Approved?: Yes On label?: No 5 10:05 AM [facility] Trial Count 3 5 10:05 AM [facility]: Clinical Trial Match 1 Clinical Trial NCT ID: [id number] Clinical Trial Title: Testing the Combination of Two Anti-cancer Drugs, DS-8201a and RBJ1733, for The Treatment of Advanced Solid Tumors Expressing the HER2 Protein or Gene, The DASH Trial Clinical Trial URL: https://clinicaltrial s.gov/ct2/show/YGO008 74751 Clinical Phase: Phase 1 Clinical Trial Matches: ERBB2 (HER2) amplification Clinical Trial Distance and Location: [address] [place] 5 10:05 AM [facility]: Clinical Trial Match 2 Clinical Trial NCT ID: [id number] Clinical Trial Title: Fanho-ek-Ndoyg Study of Mutant-selective PI3K Inhibitor, RLY-2608, as a Single Agent in Patients With Advanced Solid Tumors and in Combination With Endocrine Therapy +/- a CDK4/6 or CDK4 Inhibitor in Patients With Advanced Solid Tumors or Advanced Breast Cancer Clinical Trial URL: https://clinicaltrial s.gov/ct2/show/DFP965 84350 Clinical Phase: Phase 1 Clinical Trial Matches: PIK3CA p.J4596I mutation Clinical Trial Distance and Location: [address] [place], [place] 5 10:05 AM CDT [facility]: Clinical Trial Match 3 Clinical Trial NCT ID: [id number] Clinical Trial Title: A Xexfn-Qa-Tfhnh, Phase 1 Study Evaluating Oral TACC3 PPI Inhibitor, AO-252, in Advanced Solid Tumors With or Without Brain Metastases Clinical Trial URL: https://clinicaltrial s.gov/ct2/show/ICT468 08632 Clinical Phase: Phase 1 Clinical Trial Matches: 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 No gene rearrangements nor reportable altered splicing events were identified from RNA sequencing. 5 10:05 AM CDT [facility] Germline Variant Note No potential germline variants were found in the limited set of genes on which we report. 5 10:05 AM CDT [facility] HER2 Result POSITIVE 5 10:05 AM CDT [facility] Comment:IHC Interprete: 90% of tumor cells show circumferential membrane staining that is complete andintense (3+). This corresponds to a POSITIVE HER2 result.Strong (3+) HER2 staining in greater than 10% of tumor cells is considered apositive result in breast cancer and may make the patient eligible for themonoclonal antibody trastuzumab and pertuzumab in combination with trastuzumaband docetaxel. HER2 positive breast cancers are associated with an aggressiveclinical course characterized by increased risk of metastasis, diseaserecurrence, and shortened survival. Score 3+ 5 10:05 AM CDT [facility] % Cells Complete Membrane Staining 90% 5 10:05 AM CDT [facility] Tissue specimen (specimen) 03/27/2025 3:21 PM CDT 04/01/2025 11:53 AM CDT Narrative This result has genomic variants that were not included in this document. us Jovani Weeks MD MOLECULAR ORDERABLES Edited Res ult - Final [facility] [address], [address] [place] [address], [facility] [address], [address] [place] [address] * PET BONE IMG W CT SKB [...] OF CARE TESTING Ann Marie piper Result [facility] [address] CLIA# [id number] [address] [place] [address] * COLONOSCOPY REPORT (02/01/2024 10:27 AM CDT) Narrative Procedure Note Amy York MD - 02/01/2024 10:27 AM CDT [facility] Endoscopy Patient Name: Patsy Rush Procedure Date: [...] bowel preparation was evaluated using the BBPS (Lynn Bowel Preparation Scale) with scores of: Right [...] of Addenda: [address]; [place] [address] Amy York MD GI PROCEDURE ORDERABLES Final Re sult from Last 3 Months or Most Recently Relevant to Health Maintenance [place] [address] [place] [address] [place] [address] [employer] II Advance Directives For more information, please contact: [phone] * Full Code (Latest Code Status on File) Date Activated Date Inactivated Comments 02/01/2024 9:07 AM 02/01/2024 1:04 PM * Full Code Date Activated Date Inactivated Comments 01/19/2023 10:54 AM 01/19/2023 3:33 PM Care Teams Pipe Welder Relationship Specialty [place] [address] [place] [address] PCP - General Family Practice 11/15/22
--- OUTSIDE RECORDS SUMMARY | 2025-05-10 10:42 | XMS_ITS | Encounter Summary ---
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
--- OUTSIDE RECORDS SUMMARY | 2025-05-10 10:42 | XMS_ITS ---
Author Organization [facility] Address [address] [place] [address] Care Team Providers Care Service Control Operator Name Role Phone Mallory Moon DO Primary Care Provider [phone] Active Problems Problem Noted Date Diagnosed Date [...]
[2025-05-10 11:06] LABS: Hematocrit 30.7 % (37.0-47.0); Hemoglobin 10.2 g/dL (12.0-15.0); Mean Corpuscular HGB Conc 33.2 g/dl (32-36); Mean Corpuscular Hemoglobin 32.4 pg (26-34); Mean Corpuscular Volume 97.5 fl (80-100); Platelet Count Result 111 k/mm3 (150-375); Red Blood Count 3.15 M/mm3 (4.2-5.4); White Blood Count 2.0 K/mm3 (4.5-10.0)
[2025-05-10 11:07] LABS: Add Urine Microscopic? NO; Appearance Urine Clear (Clear); Glucose Urine UA Negative (Negative); Leukocyte Esterase Ur Negative LEU/UL (Negative); Nitrate Urine Negative (Negative); Specific Grav Ur 1.007 (1.001-1.035)
[2025-05-10 11:30] LABS: Alanine Aminotransferase 19 U/L (6-35); Albumin Level 3.3 g/dL (3.5-5.1); Alkaline Phosphatase 73 U/L (38-126); Anion Gap 7 mmol/L (4-12); Aspartate Amino Transferase 25 U/L (14-36); Bilirubin,Total 0.8 mg/dL (0.2-1.3); Blood Urea Nitrogen 8 mg/dL (7-17); Calcium 7.9 mg/dL (8.4-10.2); Carbon Dioxide 26 mmol/L (22-30); Chloride 102 mmol/L (98-107); Estimated CRCL calculation 83 ml/min; Estimated Glomerular Filt Rate > 60; Glucose 136 mg/dL (65-110); Potassium 2.8 mmol/L (3.4-5.0); Sodium 135 mmol/L (137-145); Total Protein 5.8 g/dL (6.3-8.2)
[2025-05-10 11:31] LABS: INR 1.0; Prothrombin Time 13.5 Seconds (11.1-14.7)
[2025-05-10 11:32] LABS: Partial Thromboplastin Time 23.7 Seconds (22.3-36.8)
[2025-05-10 12:07] LABS: Band Neutrophils Percent 1 % (0-6); Lymphocytes Absolute Manual 0.18 K/mm3 (1.1-4.5); Lymphocytes Percent Manual 9.0 % (18-44); Monocytes Absolute Manual 0.04 K/mm3 (0.1-0.90); Monocytes Percent Manual 2 % (3-9); Myelocytes Percent 1 %; Neutrophils Absolute Manual 1.76 K/mm3 (1.3-6.7); Neutrophils Percent Manual 87 % (46-73); Schistocytes None Seen; Total Cells Counted 100
[2025-05-10] MEDS: SODIUM CHLORIDE 0.9% IV 1,000 ML 999 ML IV CONT (12:07)
[2025-05-10] MEDS: POTASSIUM CHLORIDE 20 MEQ ER TABLET 40 MEQ PO (12:07)
[2025-05-10] MEDS: LIDOCAINE 2% VISC SOLN 15 ML UDC PO (12:07)
[2025-05-10] MEDS: ONDANSETRON INJ 4 MG/2 ML VIAL IV PUSH (12:07)
[2025-05-10] MEDS: KCL 20 MEQ/SW 100 ML 100 ML 50 MEQ IVPB (13:02)
--- NOTE | 2025-05-10 13:48 | ED.GENADULT ---
HPI - General Adult General Chief complaint: Recheck/Abnormal Lab/Rx Stated complaint: chemo problems Time Seen by Provider: 05/10/25 10:24 History of Present Illness HPI narrative: Patient is a 6-year-old female with history of metastatic breast cancer undergoing chemo and radiation who presents ER with concerns for side effects. Last infusion was 3 days ago. She has began having burning sensation inside of her mouth. She is having nausea is not wanting to eat as much. She does report chronic GI issues with abdominal cramping but there has been no increase. She reports mild burning urination with urinary frequency which is abnormal for her. No fevers or chills. Related Data Home Medications ?Medication ?Instructions ?Recorded ?Confirmed ?Last Taken ?Type Flonase 1 spray EACH NARE DAILY allergies 02/22/25 05/05/25 Unknown History cetirizine 10 mg PO DAILY 02/22/25 05/05/25 04/15/25 History colestipol 1 gram tablet 1 g PO DAILY 02/22/25 05/05/25 04/15/25 History famotidine 20 mg tablet (Acid 20 mg PO BID 02/22/25 05/05/25 04/15/25 History Controller) simvastatin 10 mg tablet 10 mg PO DAILY 02/22/25 05/05/25 04/15/25 History tizanidine 2 mg tablet 2 mg PO HS 02/22/25 05/05/25 04/15/25 History multivitamin (Daily Multi-Vitamin 1 tablet PO DAILY 03/06/25 05/05/25 04/13/25 History tablet) calcium 600 mg (as 1 cap PO QPM 04/11/25 05/05/25 04/13/25 History carbonate)-vitamin D3 5 mcg (200 unit) capsule (Calcium 600 + D(3)) ondansetron 4 mg disintegrating 8 mg PO .every 8 hours PRN nausea 04/29/25 05/05/25 Unknown History tablet and vomiting Allergies Allergy/AdvReac Type Severity Reaction Status Date / Time shellfish derived Allergy Severe Unknown Verified 05/10/25 12:06 cat dander Allergy Mild Hives Verified 05/10/25 12:06 Influenza Virus Vaccines Allergy Mild Hives Verified 05/10/25 12:06 metronidazole Allergy Unknown Unknown Verified 05/10/25 12:06 Sulfa (Sulfonamide Allergy Unknown Unknown Verified 05/10/25 12:06 Antibiotics) cefazolin AdvReac Severe Hives Verified 05/10/25 12:06 clarithromycin (From Biaxin) AdvReac Unknown Nausea Verified 05/10/25 12:06 Review of Systems Review of Systems: All systems reviewed & are unremarkable except as noted in HPI and below Constitutional: Constitutional: Reports no additional constitutional complaints ENT: Reports system reviewed and no additional complaints, except as documented Cardiovascular: Cardiovascular: Reports no additional cardiovascular complaints Respiratory: Respiratory: Reports no additional respiratory complaints Genitourinary: Genitourinary: Reports no additional female genitourinary complaints [facility] Past Medical History Medical History (Updated 05/10/25 @ 16:58 by Bairon Lee MD) Primary breast cancer with metastasis to other site Bone spur Bursitis Surgical History Surgical History History of arthroscopic surgery of shoulder Family History Family History Mother Family history non-contributory Grandparent Cerebrovascular accident Social History Social History Smoking packs per day: 0.25 Smoking cigarettes per day: 5.0 Years smoked: 30 Smoking pack-years: 7.50 Tobacco type: cigarettes Second hand tobacco smoke exposure: No Smoking end date: 07/03/22 Alcohol intake: current Substance use: current Substance use type: marijuana Other substance usage details: [facility] Do You Feel Safe in your Home?: Yes Lack of Transportation: No Lack of Food: Never True Current Housing: I Have Housing Concerned About Future Housing: No Difficulty Paying Gas/Electric Bills: No Difficulty Paying for Meds: No Currently Unemployed: No Education: Bachelor's Degree Difficulty w/ Childcare or Family Care: No Living arrangements: with family 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 HEAD: Normocephalic, atraumatic. EYES: PERRL and EOMI. ENT: Mucous membranes moist. No oral ulcerations. NECK: Supple. CHEST: Clear to auscultation. No respiratory distress. HEART: Regular rate and rhythm. Normal peripheral pulses. ABDOMEN: Soft, nontender, nondistended. EXTREMITIES: Normal range of motion. No edema. SKIN: Warm, dry, no rash. NEURO: Alert and oriented x3. PSYCH: Normal mood and affect. Course Course Emergency Course: Feels improved after viscous lidocaine. Potassium corrected. Patient has been having diarrhea for few days. Will discharge with potassium supplementation in neuro: Mouthwash. Vital Signs Vital signs: Vital Signs Temperature 98.2 F 05/10/25 10:24 Pulse Rate 87 05/10/25 10:24 Respiratory Rate 17 05/10/25 10:24 Blood Pressure 151/87 H 05/10/25 10:24 Pulse Oximetry 100 05/10/25 10:24 Oxygen Delivery Room Air 05/10/25 10:24 Temperature 98.2 F 05/10/25 10:24 Pulse Rate 76 05/10/25 15:04 Respiratory Rate 19 05/10/25 15:04 Blood Pressure 146/78 H 05/10/25 15:04 Pulse Oximetry 99 05/10/25 15:04 Oxygen Delivery Room Air 05/10/25 10:24 Medical Decision Making Differential Diagnosis Differential Diagnosis: Dehydration, thrush, aphthous ulcer, electrolyte imbalance, GERD, dental disease Vital Signs Vital Signs: Vital Signs Temperature 98.2 F 05/10/25 10:24 Pulse Rate 87 05/10/25 10:24 Respiratory Rate 17 05/10/25 10:24 Blood Pressure 151/87 H 05/10/25 10:24 Pulse Oximetry 100 05/10/25 10:24 Oxygen Delivery Room Air 05/10/25 10:24 Temperature 98.2 F 05/10/25 10:24 Pulse Rate 76 05/10/25 15:04 Respiratory Rate 19 05/10/25 15:04 Blood Pressure 146/78 H 05/10/25 15:04 Pulse Oximetry 99 05/10/25 15:04 Oxygen Delivery Room Air 05/10/25 10:24 Lab Data 05/10/25 10:59 05/10/25 15:05 Labs: Lab Results 05/10/25 05/10/25 Range/Units 10:59 15:05 WBC 2.0 L (4.5-10.0) K/mm3 RBC 3.15 L (4.2-5.4) M/mm3 Hgb 10.2 L (12.0-15.0) g/dL Hct 30.7 L (37.0-47.0) % MCV 97.5 (80-100) fl MCH 32.4 (26-34) pg MCHC 33.2 (32-36) g/dl RDW 12.5 (11.5-14.5) % Plt Count 111 L D (150-375) k/mm3 MPV 9.8 (7.4-10.4) fl Immature Gran % (Auto) Not Reportable Neut % (Auto) Not Reportable Lymph % (Auto) Not Reportable Swisher % (Auto) Not Reportable Eos % (Auto) Not Reportable Baso % (Auto) Not Reportable Lymph # (Auto) Not Reportable Swisher # (Auto) Not Reportable Eos # (Auto) Not Reportable Baso # (Auto) Not Reportable Abs Immat Gran (auto) Not Reportable Absolute Neuts (auto) Not Reportable Absolute Nucleated RBC Not Reportable Total Counted 100 Neutrophils % (Manual) 87 H (46-73) % Band Neutrophils % 1 (0-6) % Lymphocytes % (Manual) 9.0 L (18-44) % Monocytes % (Manual) 2 L (3-9) % Myelocytes % 1 % Nucleated RBC % Not Reportable Abs Neuts (Manual) 1.76 (1.3-6.7) K/mm3 Abs Lymphs (Manual) 0.18 L (1.1-4.5) K/mm3 Abs Monocytes (Manual) 0.04 L (0.1-0.90) K/mm3 Platelet Estimate Decreased (Adequate) Schistocytes None seen PT 13.5 (11.1-14.7) Seconds INR 1.0 APTT 23.7 (22.3-36.8) Seconds Sodium 135 L 137 (137-145) mmol/L Potassium 2.8 L* 3.5 (3.4-5.0) mmol/L Chloride 102 105 (98-107) mmol/L Carbon Dioxide 26 26 (22-30) mmol/L Anion Gap 7 6 (4-12) mmol/L BUN 8 6 L (7-17) mg/dL Creatinine 0.50 L 0.48 L (0.7-1.0) mg/dL Estim Creat Clear Calc 83 86 ml/min Estimated GFR > 60 > 60 (59 - ) Glucose 136 H 92 (65-110) mg/dL Calcium 7.9 L 7.8 L (8.4-10.2) mg/dL Total Bilirubin 0.8 (0.2-1.3) mg/dL AST 25 (14-36) U/L ALT 19 (6-35) U/L Alkaline Phosphatase 73 (38-126) U/L Total Protein 5.8 L (6.3-8.2) g/dL Albumin 3.3 L (3.5-5.1) g/dL Urine Color Yellow (Yellow) Urine Appearance Clear (Clear) Urine pH 6.5 (5.0-9.0) Ur Specific [place] 1.007 (1.001-1.035) Urine Protein Negative (Negative) mg/dL Urine Glucose (UA) Negative (Negative) mg/dL Urine Ketones Negative (Negative) mg/dL Ur Blood (Man) Negative (Negative) Urine Nitrate Negative (Negative) Urine Bilirubin Negative (Negative) Urine Urobilinogen 0.2 (<2.0) mg/dL Leukocyte Esterase Rfl Negative (Negative) MARY JO/UL Discharge Plan Discharge Clinical Impression: Hyperkalemia, GERD (gastroesophageal reflux disease) Patient Disposition: Home Condition: Stable Instructions: Hyperkalemia (ED) Additional Instructions: Return ER if you have fever over 100.4? F, you cannot keep down food or water, you lose consciousness, or you have additional concerns. Patient Language: British Prescriptions: New potassium chloride [Klor-Con M20] 20 mEq tablet,ER particles/crystals 20 meq PO DAILY Qty: 7 0RF lidocaine HCl [Lidocaine Viscous] 2 % solution 1 applic mucous membrane QID PRN (Reason: pain) Qty: 100 1RF No Action tizanidine 2 mg tablet 2 mg PO HS simvastatin 10 mg tablet 10 mg PO DAILY colestipol 1 gram tablet 1 g PO DAILY cetirizine 10 mg PO DAILY Flonase 1 spray EACH NARE DAILY famotidine [Acid Controller] 20 mg tablet 20 mg PO BID multivitamin [Daily Multi-Vitamin] Tablet 1 tablet PO DAILY ondansetron 4 mg tablet,disintegrating 8 mg PO .every 8 hours PRN (Reason: nausea and vomiting) calcium carbonate-vitamin D3 [Calcium 600 + D(3)] 600 mg-5 mcg (200 unit) capsule 1 cap PO QPM Patient Comments: .. Follow-up/Referrals: Jovani Weeks MD [Physician, Hematology] - 1 Week PHYSICIAN,TEST EXAMINER [Primary Care Provider, Internal Medicine]
[2025-05-10 15:04] VITALS: BP 146/78; PULSE 76; RESP 19; O2SAT 99
[2025-05-10 15:29] LABS: Anion Gap 6 mmol/L (4-12); Blood Urea Nitrogen 6 mg/dL (7-17); Calcium 7.8 mg/dL (8.4-10.2); Carbon Dioxide 26 mmol/L (22-30); Chloride 105 mmol/L (98-107); Estimated CRCL calculation 86 ml/min; Estimated Glomerular Filt Rate > 60; Glucose 92 mg/dL (65-110); Potassium 3.5 mmol/L (3.4-5.0); Sodium 137 mmol/L (137-145)
== END 2025-05-10 17:38 | disposition home or self-care (01) ==
PROVIDERS: Emergency Provider Emergency Medicine
DX: E87.5 Hyperkalemia (principal); K21.9 Gastro-esophageal reflux disease without esophagitis; C50.919 Malignant neoplasm of unspecified site of unspecified female breast; C79.9 Secondary malignant neoplasm of unspecified site; Z87.891 Personal history of nicotine dependence; Z79.630 Long term (current) use of alkylating agent; Z79.899 Other long term (current) drug therapy
CPT/HCPCS: 36415; 80048; 80053; 81003; 85025; 85610; 85730; 96361; 96365; 96366; 96375; 99284; A9270; J2405; J3480; J7030

== ENCOUNTER 2025-07-01 10:18 | Outpatient (CLI) | payer OTHER, SELFPAY ==
--- NOTE | 2025-07-01 | ECHO_ITS ---
Patient Info Name: Patsy Rush Age: 60 years : 1965 Gender: Female Ht: 64 in Wt: 125 lbs BSA: 1.60 m2 HR: 71 bpm BP: 133 / 79 mmHg Heart Rhythm: Sinus Rhythm Technical Quality: Good Exam Date: 07/01/2025 11:04 AM Patient Status: O Admit Date: 07/01/2025 Exam Type: CA echo doppler color flow Complete two-dimensional, color flow and Doppler transthoracic echocardiogram is performed. Strain analysis performed. Supervisor Sulfuric Acid Plant: Teressa Garcia Attending Provider: Jovani Weeks MD Summary 1. Complete two-dimensional, color flow and Doppler transthoracic echocardiogram is performed. 2. Left ventricular systolic function is normal, estimated at 60-65. 3. The left ventricular diastolic function is normal. Left Ventricle Left ventricular chamber dimension is normal. Left ventricular systolic function is normal, estimated at 60-65. There is no increased left ventricular wall thickness. Left ventricular septal wall motion is normal. The left ventricular diastolic function is normal. Right Ventricle Right ventricular chamber dimension is normal. Right ventricular systolic function is normal. Left Atria Left atrial chamber dimension is normal. Right Atria Right atrial chamber dimension is normal. Aortic Valve The aortic valve is trileaflet. There is no aortic valve sclerosis. There is no aortic valve stenosis. There is no aortic valve regurgitation. Pulmonic Valve The pulmonic valve is normal. There is no pulmonic valve stenosis. There is no pulmonic regurgitation. Mitral Valve The mitral valve has normal leaflets. There is no mitral valve stenosis. There is no mitral valve regurgitation. Tricuspid Valve The tricuspid valve leaflets are normal. There is no significant tricuspid valve stenosis. There is no tricuspid valve regurgitation. Pericardium/Pleural The pericardium appears normal. There is no pericardial effusion. Inferior Vena Cava Normal inferior vena cava with >50% collapse upon inspiration consistent with normal right atrial pressure, 5 mmHg. Aorta The aortic root size at the sinus of Valsalva is normal. The prox ascending aorta size is normal. Left Ventricular Outflow Tract Name Value Normal LVOT 2D LVOT Diameter 2.0 cm LVOT Doppler LVOT Peak Velocity 97 cm/s LVOT Peak Gradient 4 mmHg LVOT Mean Gradient 1 mmHg LVOT VTI 17 cm LVOT VTI/AV VTI Ratio 0.6 LVOT Stroke Volume 52 ml LVOT CO 3.8 l/min LVOT CI 2.4 l/min/m2 Pulmonic Valve Name Value Normal RVOT Doppler RVOT Peak Velocity 86 cm/s RVOT Peak Gradient 3 mmHg PV Doppler PV Peak Velocity 134 cm/s PV Peak Gradient 7 mmHg Mitral Valve Name Value Normal MV Diastolic Function MV E Peak Velocity 80 cm/s MV A Peak Velocity 63 cm/s MV E/A 1.3 MV Decel Time (PW) 141 ms MV Annular TDI MV E/e' (Septal) 8.1 MV E/e' (Lateral) 6.4 MV E/e' (Average) 7.3 Tricuspid Valve Name Value Normal Estimated PAP/RSVP RA Pressure 5 mmHg <=5 TV Annular TDI TV Lateral Karina s' Velocity 12.3 cm/s >=9.5 Aortic Valve Name Value Normal AV Doppler AV Peak Velocity 149 cm/s AV Peak Gradient 9 mmHg AV Mean Gradient 4 mmHg AV VTI 29 cm AV Area (Cont Eq VTI) 1.8 cm2 >=3.0 AV Area (Cont Eq Donell) 2.0 cm2 AV DI (Donell) 0.65 AV Regurgitation 2D LVOT Area 3.0 cm2 Ventricles Name Value Normal LV Dimensions 2D/MM IVS Diastolic Thickness (2D) 0.8 cm 0.6-1.0 LVID Diastole (2D) 4.2 cm 3.8-5.2 LVIW Diastolic Thickness (2D) 0.8 cm 0.6-0.9 LVID Systole (2D) 2.6 cm 2.2-3.5 LVOT Diameter 2.0 cm LV Mass (2D Cubed) 103.45 g 67.00-162.00 LV Mass Index (2D Cubed) 65 g/m2 43-95 Relative Wall Thickness (2D) 0.37 <=0.42 LV Fractional Shortening/Ejection Fraction 2D/MM LV Fractional Shortening (2D) 39 % 27-45 LV EF (2D Teichholz) 70 % LV Diastolic Volume (4C MOD) 41 ml LV EF (4C MOD) 66 % LV Diastolic Volume (2C MOD) 43 ml LV EF (2C MOD) 62 % LV Diastolic Volume (BP MOD) 44 ml 46-106 LV Diastolic Volume Index (BP MOD) 27 ml/m2 29-61 LV Systolic Volume (BP MOD) 15 ml 14-42 LV Systolic Volume Index (BP MOD) 9 ml/m2 8-24 LV EF (BP MOD) 65 % 54-74 LV Diastolic Length (4C) 7.3 cm LV Systolic Length (4C) 6.2 cm LV Stroke Volume (4C MOD) 27 ml Atria Name Value Normal LA Dimensions LA Volume (4C A-L) 53 ml LA Volume (BP A-L) 52 ml RA Dimensions RA Area (4C) 8.6 cm2 <=18.0 EchoPAC Name Value Normal RHONDA LV Apical Anterior Longitudinal Strain (RHONDA) -26.2 % LV Apical Anteroseptal Longitudinal Strain (RHONDA) -27.8 % LV Apical Inferior Longitudinal Strain (RHONDA) -29.3 % LV Apical Lateral Longitudinal Strain (RHONDA) -22.9 % LV Apical Posterior Longitudinal Strain (RHONDA) -26.6 % LV Apical Septal Longitudinal Strain (RHONDA) -22.2 % AV Closure (RHONDA) 344 ms LV Basal Anterior Longitudinal Strain (RHONDA) -22.7 % LV Basal Anteroseptal Longitudinal Strain (RHONDA) -16.8 % LV Basal Inferior Longitudinal Strain (RHONDA) -20.9 % LV Basal Anterolateral Longitudinal Strain (RHONDA) -19.8 % LV Basal Inferolateral Longitudinal Strain (RHONDA) -18.3 % LV Basal Inferoseptal Longitudinal Strain (RHONDA) -19.1 % LV Global Longitudinal Strain (2C RHONDA) -23.8 % LV Global Longitudinal Strain (4C RHONDA) -20.4 % LV Global Longitudinal Strain (APLAX RHONDA) -21.8 % LV Global Longitudinal Strain (RHONDA) -22.0 % LV Mid Anterior Longitudinal Strain (RHONDA) -19.4 % LV Mid Anteroseptal Longitudinal Strain (RHONDA) -21.0 % LV Mid Inferior Longitudinal Strain (RHONDA) -22.7 % LV Mid Anterolateral Longitudinal Strain (RHONDA) -19.4 % LV Mid Inferolateral Longitudinal Strain (RHONDA) -20.6 % LV Mid Inferoseptal Longitudinal Strain (RHONDA) -20.2 % Report Signatures
--- OUTSIDE RECORDS SUMMARY | 2025-07-01 10:51 | XMS_ITS | Clinical Summary ---
Author Organization [employer] [place] Address [address] [place] [address] Care Team Providers Care Floor Finisher Name Role Phone Mallory Moon Primary Care Provider [phone] Allergies Active Allergy Reactions Criticality Noted Date Comments Cefazolin Nausea and Vomiting Low 11/26/2021 Reaction was either vomiting or hive Cefprozil Hives High 11/15/2022 Clarithromycin Hives High 11/15/2022 Influenza Virus Vaccine Tv Split 2012- (18 Yr+) Hives High 12/29/2022 Metronidazole Abdominal Pain Low 11/15/2022 Psyllium Seed (Sugar) Diarrhea Medium 05/26/2025 Shellfish Containing Products Hives High 11/15/2022 Sulfa (Sulfonamide Antibiotics) Hives High 11/15/2022 Medications cetirizine (ZyrTEC) 5 mg tablet 5 mg. 03/22/20 21 Active tiZANidine (ZANAFLEX) 2 mg Tablet 1-2 tabs as needed Orally once a day at bedtime for 30 06/22/20 22 Active cannabidiol, CBD, (CANNABIDIOL ORAL) mg, 0, CBD/THC edible gummy 03/22/20 21 Active colestipoL (COLESTID) 1 gram tablet Take 1 Tablet (1,000 mg) by mouth daily. 90 Tablet 3 02/12/20 25 Active ondansetron (ZOFRAN) 8 mg Tablet Take 1 Tablet (8 mg) by mouth every 8 hours as needed for Nausea/Emesis . 30 Tablet 2 04/21/20 25 Active traMADol (ULTRAM) 50 mg tabletIndicati ons:Carcinoma of right breast metastatic to bone (CMS/HCC) Take 1 Tablet (50 mg) by mouth every 8 hours as needed for Pain. 60 Tablet 04/21/20 25 Active lidocaine-pril ocaine (EMLA) 2.5-2.5 % Cream Apply a quarter size amount to port site 30 minutes prior to access. 30 Gram 1 05/02/20 25 Active dexAMETHasone (DECADRON) 4 mg tablet Take 2 Tablets (8 mg) by mouth 2 times daily day before, day of, day after treatment with Docetaxel. 12 Tablet 5 05/02/20 25 Active omeprazole (PriLOSEC) 20 mg Capsule, Delayed Release(E.C.) Take 20 mg by mouth daily. Active potassium CHLORIDE (K-DUR,KLOR-CO N M20) 20 mEq Extended Release tablet TAKE 1 TABLET(20 MEQ) BY MOUTH DAILY 30 Tablet 1 06/13/20 25 Active cyanocobalamin 1,000 mcg Tablet Take 1,000 mcg by mouth daily. Active ferrous sulfate 325 mg (65 mg iron) tablet Take 325 mg by mouth daily. Active potassium CHLORIDE (K-DUR,KLOR-CO N M20) 20 mEq Extended Release tablet Take 1 Tablet (20 mEq) by mouth daily. 30 Tablet 1 05/12/20 25 025 Discontinued Active Problems Problem Noted Date Diagnosed Date Carcinoma of right breast metastatic to bone 10/2024 History of colon polyps 08/08/2023 Gastroesophageal reflux dise ase with esophagitis without hemorrhage 05/30/2023 Irritable bowel syndrome with diarrhea 3 Resolved Problems Problem Noted Date Diagnosed Date Resolved Date Chronic diarrhea 11/15/2022 05/30/2023 RUQ abdominal pain 11/15/2022 3 Encounters Date Type Department Care Team Description 06/30/2025 Orders Only [facility] and Hematology - [address] [place] [address] Jovani Weeks MD Carcinoma of right breast metastatic to bone (CMS/HCC) 06/24/2025 External Device Data STL ABSTRACTION Provider, Abstract 06/24/2025 Orders Only [facility] - [place] [address] [place] [address] Jovani Weeks MD Carcinoma of right breast metastatic to bone (CMS/HCC) (Primary Dx) 06/23/2025 Orders Only [facility] - [place] Jovani Weeks MD Carcinoma of right breast metastatic to bone (CMS/HCC) (Primary Dx) 06/18/2025 Orders Only [facility] - [place] [place] [address] Jovani Weeks MD 06/17/2025 Orders Only [facility] - [address] [place] [address] Jovani Weeks MD 06/16/2025 9:30 AM ACCOUNT EXECUTIVE TRAINEE Office Visit [facility] - [place] [place] [address] Jovani Weeks MD Carcinoma of right breast metastatic to bone (CMS/HCC) 06/16/2025 Orders Only [facility] - [place] [place] [address] Jovani Weeks MD 06/13/2025 Orders Only [facility] - [address] [place] [address] Jovani Weeks MD Encounter for chemotherapy management (Primary Dx) 06/13/2025 Refill [facility] - [address] Jovani Weeks MD 06/02/2025 Orders Only [facility] - [address] Jovani Weeks MD Carcinoma of right breast metastatic to bone (CMS/HCC) 05/26/2025 9:00 AM ACCOUNT EXECUTIVE TRAINEE Office Visit [facility] - [address] [place] [address] Jovani Weeks MD Carcinoma of right breast metastatic to bone (CMS/HCC) (Primary Dx) 05/26/2025 Orders Only [facility] - [place] [address] [place] [address] Jovani Weeks MD 05/22/2025 Telephone [facility] Internal Medicine - [facility] [address] [place] [address] Mallory Moon DO Needs Appointment; Patient Communication 05/20/2025 External Device Data STL ABSTRACTION Provider, Abstract 05/19/2025 Telephone [facility] Gastroenterology [facility] [address] [facility] [address] [place] [address] Ninfa Menjivar, RN Esophageal Reflux 05/19/2025 Orders Only [facility] - [place] [address] [place] [address] Jovani Weeks MD Carcinoma of right breast metastatic to bone (CMS/HCC) 05/14/2025 Abstract [facility] - [place] [place] [address] Jovani Weeks MD 05/12/2025 Refill [facility] - [address] [place] [address] Jovani Weeks MD 05/07/2025 Orders Only [facility]ology - [address] [place] [address] Jovani Weeks MD 05/06/2025 Orders Only [facility] - [place] [address] [place] [address] Jovani Weeks MD Carcinoma of right breast metastatic to bone (CMS/HCC) (Primary Dx) 05/02/2025 Refill [facility] - [place] [address] [place] [address] Jovani Weeks MD 04/24/2025 Abstract [facility] [address] [place] [address] Jovani Weeks MD 04/23/2025 External Device Data STL ABSTRACTION Provider, Abstract 04/21/2025 9:30 AM CDT Office Visit [facility] - [place] [place] [address] Jovani Weeks MD Carcinoma of right breast metastatic to bone (CMS/HCC) (Primary Dx) 04/14/2025 Orders Only [facility] On[facility] Hematology [facility] [address] [place] [address] Jovani Weeks MD Carcinoma of right breast metastatic to bone (CMS/HCC) (Primary Dx) 04/08/2025 External Device Data STL ABSTRACTION Provider, Abstract 04/08/2025 Orders Only [facility] [address] [place] [address] Jovani Weeks MD from Last 3 Months Family History Medical History Relation Name Comments Diabetes Brother Heart Disease Father Breast Cancer Maternal Aunt bladder cancer Maternal Grandfather Heart Disease Mother Hypertension Mother Relation Name Status Comments Brother Alive Father Alive Maternal Aunt Maternal Grandfather Mother Alive Social History Tobacco Use Types Packs/Day Years Used Date Smoking Tobacco: Former Cigarettes 0 Q uit: 12/27/2022 Smokeless Tobacco: Never Alcohol [...] on file Legal Sex Female 6:03 AM ACCOUNT EXECUTIVE TRAINEE Gender Identity Not on file Sexual Orientation Not on file Last Filed Vital Signs Vital Sign Reading Time Taken Comments Blood Pressure 145/78 06/16/2025 9:40 AM ACCOUNT EXECUTIVE TRAINEE Pulse 79 06/16/2025 9:31 AM ACCOUNT EXECUTIVE TRAINEE Temperature 36.3 C (97.3 F) 06/16/2025 9:31 AM ACCOUNT EXECUTIVE TRAINEE Respiratory Rate 15 06/16/2025 9:31 AM ACCOUNT EXECUTIVE TRAINEE Oxygen Saturation 98% 06/16/2025 9:31 AM ACCOUNT EXECUTIVE TRAINEE Inhaled Oxygen Concentration - - Weight 58.3 kg (128 lb 9.6 oz) 06/16/2025 9:31 A M ACCOUNT EXECUTIVE TRAINEE Height 162.6 cm (5' 4) 03/06/2025 12:10 PM CDT Body Mass Index 22.07 03/06/2025 12:10 PM CDT Plan of Treatment Upcoming Encounters Date Type Department Care Team (Late st Contact Info) Description 07/08/2025 2:00 PM ACCOUNT EXECUTIVE TRAINEE Office Visit [facility] On[facility] H[facility]ology [facility] [address] [facility] [address] [place] [address] Jovani Weeks MD [address] [facility] [address] [place] [address] 02/17/2026 8:20 AM CDT Office Visit [facility] Gastroenterology [facility] [address] [facility] [address] [place] [address] Amy York MD [address] [facility] [address] [place] [address] Health Maintenance Due Date Last [...] 2015 BREAST CANCER SCREENING 03/02/2016 03/02/2015, 02/09 Preventative Visit- Commercial 07/03/2024 INFLUENZA VACCINE (#1) 2025 COVID-19 Vaccine ( season) 2025 01/28/2022, 04/29/2021, 10/26/2020 COLORECTAL SCREENING 01/31/2027 02/01/2024, 02/01/2024, 01/19/2023, Additional history exists Colorectal Cancer Screening 01/31/2027 HEPATITIS B VACCINES Aged Out No long er eligible based on patient's age to complete this topic Procedures Procedure Name Priority Date/Time Associated Diagnosis Comments COMPREHENSIVE METABOLIC PANEL Routine 06/16/2025 12:40 PM ACCOUNT EXECUTIVE TRAINEE CBC WITH AUTODIFFERENTIAL Routine 06/16/2025 12:38 PM ACCOUNT EXECUTIVE TRAINEE CHG CA 15 3 Routine 06/16/2025 9:14 AM ACCOUNT EXECUTIVE TRAINEE COMPREHENSIVE METABOLIC PANEL Routine 05/26/2025 4:17 PM ACCOUNT EXECUTIVE TRAINEE CBC WITH AUTODIFFERENTIAL Routine 05/26/2025 4:05 PM ACCOUNT EXECUTIVE TRAINEE CBC WITH AUTODIFFERENTIAL Routine 05/05/2025 4:08 PM ACCOUNT EXECUTIVE TRAINEE TEMPUS XF Routine 04/05/2025 8:51 AM CDT Carcinoma of right breast metastatic to bone (CMS/HCC) ECHO COMPLETE Routine 04/04/2025 12:17 PM CDT COLONOSCOPY REPORT 02/01/2024 10 :27 AM CDT from Last 3 Months or Most Recently Relevant to Health Maintenance Results * COMPREHENSIVE METABOLIC PANEL (06/16/2025 12:40 PM ACCOUNT EXECUTIVE TRAINEE) Only the most recent of2 resultswithin the time period is included. Blood us Jovani Weeks MD CHEMISTRY ORDERABLES Final Resu lt * CBC WITH AUTODIFFERENTIAL (06/16/2025 12:38 PM ACCOUNT EXECUTIVE TRAINEE) Only the most recent of3 resultswithin the time period is included. Blood us Jovani Weeks MD HEMATOLOGY ORDERABLES Final Res ult * CHG CA 15 3 (06/16/2025 9:14 AM ACCOUNT EXECUTIVE TRAINEE) Jovani Weeks MD CHG - LABORATORY Final Result * [facility] (04/05/2025 8:51 AM CDT) Reason for Study To identify mutation s relevant to patient's cancer. 04/05/2025 8:51 AM CDT [facility] Genetic Diseases Assessed Cancer 04/05/2025 8:51 AM CDT [facility] Description of Ranges of DNA Sequences Examined 105 gene liquid biopsy 8:51 AM CDT [facility] Overall Interpretation positive 04/05/2025 8:51 AM CDT [facility] Portal [email or web address] 04/05/2025 8:51 AM CDT [facility] Comment:[facility] link Low Coverage Regions SPOP 04/05/2025 8:51 AM CDT [facility] Therapy Count 4 04/05/2025 8:51 AM CDT [facility]us: Potential Therapy 1 Gene: 8975^PIK3CA^HGNC Variant: [id number] Match Type: snvIndel Match Type Description: PIK3CA p.B9172C Agent: Alpelisib + Fulvestrant Drug Class: Combination (PI3K Inhibitor + Estrogen Receptor Antagonist) Tissue: Breast Cancer Association: Response Evidence Status: Consensus Evidence ID: NCCN KDB Variant: [id number] - GOF Label: FDA Off Label FDA Approved?: Yes On label?: No 04/05/2025 8:51 AM CDT [facility] Tempus: Potential Therapy 2 Gene: 8975^PIK3CA^HGNC Variant: p.[id number] Match Type: snvIndel Match Type Description: PIK3CA p.S0875J Agent: Capivasertib + Fulvestrant Drug Class: Combination (Muse-AKT Inhibitor + Estrogen Receptor Antagonist) Tissue: Breast Cancer Association: Response Evidence Status: Consensus Evidence ID: [place]IFT[place] KDB Variant: [id number] - GOF Label: FDA Off Label FDA Approved?: Yes On label?: No 04/05/2025 8:51 AM CDT [facility] Tempus: Potential Therapy 3 Gene: 8975^PIK3CA^HGNC Variant: p.[id number] Match Type: snvIndel Match Type Description: PIK3CA p.C5807O Agent: Inavolisib + Fulvestrant + Palbociclib Drug Class: Combination (PI3K Inhibitor + Estrogen Receptor Antagonist + CDK4/6 Inhibitor) Tissue: Breast Cancer Association: Response Evidence Status: Consensus Evidence ID: CLIFTON KDB Variant: [id number]-[id number] Label: FDA Off Label FDA Approved?: Yes On label?: No 04/05/2025 8:51 AM CDT [facility] Tempus: Potential Therapy 4 Gene: 8975^PIK3CA^HGNC Variant: p.[id number] Match Type: snvIndel Match Type Description: PIK3CA p.E3122R Agent: Alpelisib Drug Class: PI3K Inhibitor Tissue: Solid Tumors Association: Response Evidence Status: Clinical research Evidence ID: [id number] Evidence URL: https://www.ncbi.nlm.n ih.gov/pubmed/52338972 Evidence Title: Phosphatidylinositol 3-Kinase -Selective Inhibition With Alpelisib (KPA218) in KCB6JB-Zzqkfdl Solid Tumors: Results From the Utock-tw-Kwpac Study - PubMed KDB Variant: [id number] Label: FDA Off Label FDA Approved?: Yes On label?: No 04/05/2025 8:51 AM CDT [facility] Trial Count 3 04/05/2025 8:51 AM CDT [facility]us: Clinical Trial Match 1 Clinical Trial NCT ID: [id number] Clinical Trial Title: Ldblu-xm-Xpmzc Study of Mutant-selective PI3K Inhibitor, RLY-2608, as a Single Agent in Patients With Advanced Solid Tumors and in Combination With Endocrine Therapy +/- a CDK4/6 or CDK4 Inhibitor in Patients With Advanced Solid Tumors or Advanced Breast Cancer Clinical Trial URL: https://clinicaltrials .gov/ct2/show/GHR70246 432 Clinical Phase: Phase 1 Clinical Trial Matches: 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 mutation Clinical Trial Distance and Location: [address] [place], [place] 04/05/2025 8:51 AM CDT [facility] Tempus: Clinical Trial Match 2 Clinical Trial NCT ID: [id number] Clinical Trial Title: [id number] in Participants With Advanced Solid Tumors Clinical Trial URL: https://clinicaltrials .gov/ct2/show/KVB95652 704 Clinical Phase: Phase 1 Clinical Trial Matches: PIK3CA p.U9795F mutation Clinical Trial Distance and Location: [address] [place], [place] 04/05/2025 8:51 AM CDT [facility] Tempus: Clinical Trial Match 3 Clinical Trial NCT ID: [id number] Clinical Trial Title: A Tmkcj-Yw-Xuyld, Phase 1 Study Evaluating Oral TACC3 PPI Inhibitor, AO-252, in Advanced Solid Tumors With or Without Brain Metastases Clinical Trial URL: https://clinicaltrials .gov/ct2/show/BYQ67253 884 Clinical Phase: Phase 1 Clinical Trial Matches: 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] bowel preparation was evaluated using the BBPS ([place] Bowel Preparation Scale) with scores of: Right [...] of Addenda: [address]; [place] [address] Amy York MD GI PROCEDURE ORDERABLES Final Re sult from Last 3 Months or Most Recently Relevant to Health Maintenance [place] [address] A[employer] CHOICE POS II AETNA CHOICE POS II Advance Directives For more information, please contact: [phone] * Full Code (Latest Code Status on File) Date Activated Date Inactivated Comments 02/01/2024 9:07 AM 02/01/2024 1:04 PM * Full Code Date Activated Date Inactivated Comments 01/19/2023 10:54 AM 01/19/2023 3:33 PM Care Teams Floor Finisher Relationship Specialty [place] [address] [place] [address] PCP - General Family Practice 11/15/22
--- OUTSIDE RECORDS SUMMARY | 2025-07-01 10:51 | XMS_ITS | Patient Health Record ---
Author Organization [facility] Address [address] [place] [address] Care Team Providers Care Digital Campaign Manager Name Role Phone Ysabel Jeffrey Primary Care Provider [phone] Allergies Allergen (clinical drug ingredient) Drug/Non [...] W/U Status Risk Notes Problem Chronic tonsillitis (65926513) Chronic tonsillitis (J35.01) Active confirmed Problem Benign essential hypertension (0414209) Benign essential hypertension (I10) Active confirmed Problem Skin sensation disturbance (40537517) Numbness and tingling of right leg (R20.2) Active confirmed Problem Vitamin D deficiency (28102657) Vitamin D deficiency (E55.9) Active confirmed Problem Sciatica (74916903) Back pain of lumbar region with sciatica (M54.40) Active confirmed Problem Drug allergy (927386540) Drug allergy (Z88.9) Active confirmed Problem Flatulence (194662573) Flatulence (R14.3) 0 confirmed [place] Problem Malaise (216853985) Other malaise (R53.81) 0 confirmed [place] Problem General examination of patient (912253833) Routine medical exam (Z00.00) 0 confirmed [place] Problem Allergic rhinitis (26897721) Allergic rhinitis (J30.9) 0 confirmed [place] Problem Migraine (83613032) Migraine (G43.909) 0 confirmed [place] Problem Hearing loss (53264661) Hearing loss (H91.90) 0 confirmed [place] Problem Gynecological examination normal (985662449573920) Routine gynecological examination (Z01.419) 0 confirmed [place] Problem Urinary frequency (121950303) Urinary frequency (R35.0) 0 confirmed [place] Problem Other specified disorder of intestines (K63.89) 0 confirmed [place] Problem Female genital organ symptoms (059744970) Other specified symptom associated with female genital organs (N94.89) 0 confirmed [place]choa Plan Of Treatment No Information Insurance Providers Payer Name Payer Address Payer Phone Subscriber Number Group Number Insured Name Patient Relationship to Insured Coverage Start Date Coverage End Date [employer] [address] [place] [address] [id number] Patsy Rush Self - patient is the insured Medical (General) History Medical History History ICD Code Chronic diarrhea SIBO Benign lump right breast Arthroscopic surgery left knee
--- OUTSIDE RECORDS SUMMARY | 2025-07-01 10:51 | XMS_ITS | Encounter Summary ---
Author Organization [facility] [employer] [facility] Address [address] [place] [address] Care Team Providers Care Tele Marketing Executive Name Role Phone Mallory Moon DO Primary Care Provider Encounter Details Date Type Department Care Team (Late Contact Info) Description 06/30/2025 Orders Only [facility] Oncology and Hematology - [place] [address] [place] [address] Jovani Weeks MD [address] [facility] [address] [address] [place] [address] Carcinoma of right breast metastatic to bone (CMS/HCC) Social History Tobacco Use Types Packs/Day Years [...] on file Legal Sex Female 6:03 AM SAW EDGE FUSER CIRCULAR Gender Identity Not on file Sexual Orientation Not on file documented as of this encounter Plan of Treatment Upcoming Encounters Date Type Department Care Team (Late Contact Info) Description 07/08/2025 2:00 PM SAW EDGE FUSER CIRCULAR Office Visit [facility] On[facility] Hematology - [place] [address] [place] [address] Jovani Weeks MD [address] [facility] [address] [place] [address] 02/17/2026 8:20 AM CDT Office Visit [facility] Gastroenter[facility] [place] [address] [facility] [address] [place] [address] Amy York MD [address] [place] [address] documented as of this encounter Visit Diagnoses Diagnosis Carcinoma of right breast metastatic to bone (CMS/HCC) documented in this encounter Care Teams Tele Marketing Executive Relationship Specialty [place] [address] [place] [address] PCP - General Family Practice 11/15/22 documented as of this encounter
--- OUTSIDE RECORDS SUMMARY | 2025-07-01 10:51 | XMS_ITS ---
Author Organization [employer] [place] Address [address] [place] [address] Care Team Providers Care Highway Painter Name Role Phone Mallory Moon DO Primary Care Provider [phone] Active Problems Problem Noted Date Diagnosed Date Carcinoma of right breast metastatic to bone 10/2024 History of colon polyps 08/08/2023 Gastroesophageal reflux dise ase with esophagitis without hemorrhage 05/30/2023 Irritable bowel syndrome with diarrhea Current Treatment and Therapy Plans No current [...]
== END 2025-07-01 10:19 | disposition home or self-care (01) ==
LOC: ANHCARD 10:20
PROVIDERS: Visit Provider Internal Medicine Hematology & Oncology
DX: Z51.11 Encounter for antineoplastic chemotherapy (principal)
CPT/HCPCS: 93306